=== PATIENT | male | born 1955 | race Caucasian/White ===

== ENCOUNTER 2016-11-06 11:17 | Inpatient (IN) | payer MEDICAID, OTHER ==
[2016-11-06] MEDS ORDERED: Sodium Chloride 0.9% 1,000 ML IV ONE (11:39)
[2016-11-06 12:04] LABS: BASO # 0.1 K/uL (0.0-0.2); BASO % 1.5 % (0.0-2.0); EOS % 0.5 % (0.0-4.0); HEMATOCRIT 40.1 % (35.0-51.0); LYMPH # 0.6 K/uL (1.0-4.3); LYMPH % 8.2 % (20.0-40.0); MEAN CELL VOLUME 84.3 fL (80.0-94.0); MEAN CORPUSCULAR HEMOGLOBIN 27.5 pg (27.0-31.0); MEAN CORPUSCULAR HGB CONC 32.6 g/dL (33.0-37.0); MEAN PLATELET VOLUME 8.5 fL (7.2-11.7); MONO # 0.5 K/uL (0.0-0.8); MONO % 7.2 % (0.0-10.0); PLATELET COUNT 248 K/uL (130-400); RED CELL DISTRIBUTION WIDTH 15.6 % (11.5-14.5); WHITE BLOOD COUNT 7.3 K/uL (4.8-10.8)
[2016-11-06 12:10] LABS: CHLORIDE 98 mmol/L (98-107); POTASSIUM 3.7 mmol/L (3.6-5.2); SODIUM 142 mmol/L (132-148)
[2016-11-06 12:12] LABS: ALKALINE PHOSPHATASE 109 U/L (38-126); AST/SGOT 168 U/L (17-59); BILIRUBIN,TOTAL 0.8 mg/dL (0.2-1.3); CARBON DIOXIDE 25 mmol/L (22-30); GFR AFRICAN-AMERICAN > 60; TOTAL PROTEIN 8.5 g/dL (6.3-8.3)
[2016-11-06 12:13] LABS: ALT/SGPT 118 U/L (21-72); BLOOD UREA NITROGEN 8 mg/dL (9-20); GLUCOSE,RANDOM 169 mg/dL (75-110)
[2016-11-06 12:14] LABS: ALCOHOL SERUM 22 mg/dl (0-10)
[2016-11-06 12:23] LABS: EOSINOPHIL 1 % (0-4); NEUTROPHIL 82 % (50-75); TOTAL CELLS COUNTED 100
[2016-11-06 13:42] LABS: RBC URINE 1 /hpf (0-3); URINE BILIRUBIN NEGATIVE (NEGATIVE); URINE BLOOD 1+ (NEGATIVE); URINE COLOR Yellow (YELLOW); URINE GLUCOSE (UA) 2+ mg/dL (Normal); URINE KETONE NEGATIVE (NEGATIVE); URINE LEUKOCYTE ESTERASE NEG Leu/uL (Negative); URINE PROTEIN NEGATIVE (NEGATIVE); URINE UROBILINOGEN NORMAL mg/dL (0.2-1.0); WBC URINE 1 /hpf (0-5)
--- NOTE | 2016-11-06 14:26 | C.PDOC ---
History Of Present Illness A 61 year old male, who denies any significant past medical history, presents to the emergency department with hand tremors, which began earlier this morning. The patient admits he is a heavy drinker about 6 25ox cans of beer a day. The patient also complains of mild nausea and denies any fever, cough, shortness of breath, chills, vomiting, or any other complaints at this time. Time Seen by Provider: 11/06/16 11:33 Chief Complaint (Nursing): High Blood Pressure History Per: Patient History/Exam Limitations: no limitations Onset/Duration Of Symptoms: Hrs (x earlier this morning ) Associated Symptoms: denies: Chest Pain Past Medical History Vital Signs: Last Vital Signs Temp 99.6 F 11/06/16 17:00 Pulse 101 H 11/06/16 18:00 Resp 21 11/06/16 18:00 BP 191/96 H 11/06/16 18:00 Pulse Ox 100 11/06/16 18:00 Family History: States: No Known Family Hx - Social History Hx Alcohol Use: Yes Hx Substance Use: No Review Of Systems Except As Marked, All Systems Reviewed And Found Negative. Constitutional: Negative for: Fever, Chills Respiratory: Negative for: Cough Gastrointestinal: Positive for: Nausea. Negative for: Vomiting Neurological: Positive for: Other (hand tremors) Physical Exam - Physical Exam Appears: Well, No Acute Distress Skin: Normal Color, Warm, Dry Head: Atraumatic, Normacephalic Eye(s): bilateral: Normal Inspection, PERRL, EOMI Nose: Normal Tongue: Other (Tongue fasciculation) Gastrointestinal/Abdominal: Normal Exam Extremity: Other (tremors ) ED Course And Treatment - Laboratory Results Result Diagrams: 11/06/16 11:56 11/06/16 11:56 O2 Sat by Pulse Oximetry: 99 Critical Care Time - Critical Care Note Total Time (in mins): 40 Documented critical care: time excludes all time spent performing seperately billable procedures. Medical Decision Making Medical Decision Making: Progress Notes: After second dose of Ativan patient continuos to be tremulous. I will order Ativan drip. I will contact ICU for evaluation. Disposition - Disposition Disposition: HOSPITALIZED Disposition Time: 14:00 Condition: GUARDED - Clinical Impression Clinical Impression: Alcohol withdrawal, Hypertension, Tremor due to drug withdrawal - Scribe Statement The provider has reviewed the documentation as recorded by the Scriblisa Chery All medical record entries made by the Francoiblisa were at my direction and personally dictated by me. I have reviewed the chart and agree that the record accurately reflects my personal performance of the history, physical exam, medical decision making, and the department course for this patient. I have also personally directed, reviewed, and agree with the discharge instructions and disposition.
[2016-11-06] MEDS ORDERED: DEXTROSE 5% IV SCH (14:30)
[2016-11-06] MEDS ORDERED: LORAZEPAM IV SCH (14:30)
[2016-11-06] MEDS ORDERED: WATER IV SCH (14:30)
[2016-11-06 15:30] LABS: INR 1.2
[2016-11-06] MEDS: Multiple Vitamins Tab PO SCH (18:13)
--- NOTE | 2016-11-06 19:42 | CP.PCM.HP ---
<Mackenzie Rodrigues TravisPrateek - Last Filed: 11/06/16 19:36> History of Present Illness - History of Present Illness History of Present Illness: CC: tremors HPI: 61 year old male with no past medical history, presents to the ED with complaints of tremors that began this morning. He has a history of drinking 5-8 24oz. beers daily for many years. His last drink was yesterday afternoon. Patient reports feeling hand tremors, nausea, and sometimes short of breath. As per his , patient has difficulty walking more than 2-4 steps without becoming short of breath. Patient reports having fallen in the past, but is not sure if he has fallen recently. Patient is oriented and has no hallucinations. Patient denies having chest pain, abdominal pain, leg pain, vomiting, fevers, and dizziness. PMD: denies PMHx: denies SurgHx: denies FamHx: denies SocHx: 1/2ppd for "years", 5-8 24oz beers for "years; denies current drug use; denies IV drug use. Works at [employer] Allergies: NKDA Medications: denies Present on Admission - Present on Admission Any Indicators Present on Admission: No Review of Systems - Constitutional Constitutional: absent: Fever, Headache - EENT Ears: absent: Dizziness - Cardiovascular Cardiovascular: Dyspnea, Dyspnea on Exertion. absent: Chest Pain - Respiratory Respiratory: Dyspnea, Dyspnea on Exertion. absent: Cough - Gastrointestinal Gastrointestinal: Nausea. absent: Abdominal Pain, Vomiting - Genitourinary Genitourinary: absent: Dysuria - Neurological Neurological: absent: Dizziness, Headaches Past Patient History - Past Medical History & Family History Past Medical History?: No - Past Social History Smoking Status: 1 pack/2 d - MUSCULOSKELETAL/RHEUMATOLOGICAL Hx Falls: No - PSYCHIATRIC Hx Substance Use: No - SURGICAL HISTORY Hx Surgeries: No - ANESTHESIA Hx Anesthesia: No Hx Anesthesia Reactions: No Meds Allergies/Adverse Reactions: Allergies Allergy/AdvReac Type Severity Reaction Status Date / Time No Known Allergies Allergy Verified 11/06/16 11:26 Physical Exam - Constitutional Appears: Unkempt - Head Exam Head Exam: ATRAUMATIC, NORMAL INSPECTION - Eye Exam Eye Exam: EOMI, Normal appearance - ENT Exam ENT Exam: Mucous Membranes Moist - Respiratory Exam Respiratory Exam: Decreased Breath Sounds, Clear to Auscultation Bilateral. absent: Rales, Rhonchi, Wheezes - Cardiovascular Exam Cardiovascular Exam: Tachycardia, +S1, +S2 - GI/Abdominal Exam GI & Abdominal Exam: Normal Bowel Sounds, Soft. absent: Tenderness - Extremities Exam Extremities exam: Positive for: pedal edema - Neurological Exam Neurological exam: Alert, Oriented x3 Additional comments: hand tremors b/l - Skin Skin Exam: Dry, Normal Color, Warm Results - Vital Signs Recent Vital Signs: Last Vital Signs Temp 99.6 F 11/06/16 17:00 Pulse 101 H 11/06/16 18:00 Resp 21 11/06/16 18:00 BP 191/96 H 11/06/16 18:00 Pulse Ox 99 11/06/16 18:41 - Labs Result Diagrams: 11/06/16 11:56 11/06/16 11:56 Labs: Laboratory Results - last 24 hr 11/06/16 15:19 PT 13.3 H INR 1.2 APTT 30 Assessment & Plan (1) Alcohol withdrawal Assessment and Plan: - Thiamine 100mg IV daily - Multivitamin PO daily - Folic Acid 1mg PO daily - Ativan 2mg IV Q6 poncho - Ativan 4mg IV Q2 PRN (hold if lethargic) - Keep NPO - Monitor vital signs - Monitor for signs of DTs Status: Acute (2) Dyspnea on exertion Assessment and Plan: Patient reports occasionally feeling short of breath, exacerbated with exertion - CXR: f/u - ECHO: f/u - Nasal cannula O2 prn Status: Acute (3) Prophylactic measure Assessment and Plan: DVT: Heparin 5,000 units SC, SCDs GI: Pepcid 20mg PO daily NPO Status: Acute <TamelaPeter H - Last Filed: 11/07/16 09:18> Results - Vital Signs Recent Vital Signs: Last Vital Signs Temp 98.8 F 11/07/16 08:00 Pulse 107 H 11/07/16 08:20 Resp 12 11/07/16 08:20 BP 144/88 11/07/16 08:00 Pulse Ox 100 11/07/16 08:00 - Labs Result Diagrams: 11/07/16 06:44 11/07/16 06:44 Labs: Laboratory Results - last 24 hr 11/06/16 11/06/16 11/07/16 15:19 22:47 06:44 WBC 8.2 RBC 4.34 L Hgb 12.0 Hct 36.6 MCV 84.2 MCH 27.6 MCHC 32.8 L RDW 15.4 H Plt Count 205 MPV 9.2 Neut % (Auto) 71.2 Lymph % (Auto) 14.4 L [place] % (Auto) 9.1 Eos % (Auto) 4.0 Baso % (Auto) 1.3 Neut # 5.8 Lymph # 1.2 [place] # 0.7 Eos # 0.3 Baso # 0.1 PT 13.3 H INR 1.2 APTT 30 Sodium 134 Potassium 3.7 Chloride 96 L Carbon Dioxide 28 Anion Gap 14 BUN 8 L Creatinine 0.6 L Est GFR ( Amer) > 60 Est GFR (Non-Af Amer) > 60 Random Glucose 89 Calcium 8.0 L Phosphorus 3.2 Magnesium 1.7 Total Bilirubin AST ALT Alkaline Phosphatase Total Protein Albumin Globulin Albumin/Globulin Ratio 11/07/16 06:44 WBC RBC Hgb Hct MCV MCH MCHC RDW Plt Count MPV Neut % (Auto) Lymph % (Auto) [place] % (Auto) Eos % (Auto) Baso % (Auto) Neut # Lymph # [place] # Eos # Baso # PT INR APTT Sodium 133 Potassium 4.0 Chloride 96 L Carbon Dioxide 25 Anion Gap 16 BUN 9 Creatinine 0.5 L Est GFR ( Amer) > 60 Est GFR (Non-Af Amer) > 60 Random Glucose 93 Calcium 8.6 Phosphorus 3.0 Magnesium 2.0 Total Bilirubin 1.1 AST 111 H D ALT 88 H D Alkaline Phosphatase 85 Total Protein 7.1 Albumin 3.9 Globulin 3.3 Albumin/Globulin Ratio 1.2 Attending/Attestation - Attestation I have personally seen and examined this patient.: Yes I have fully participated in the care of the patient.: Yes I have reviewed all pertinent clinical information: Yes Notes (Text): Medical Attending: Patient was seen and examined by me in ER bed 8B. Agree with the above note by the resident. Patient was pending being moved to the ICU for further monitoring and treatment for acute withdrawl and DTs from a history of very heavy alcohol use. When I saw the patient he was awake, however appeared very tremulous and may have still been intoxicated at that time. He recieved large amounts of IV ativan already admisted in the ER and these did not appear to help substantially with the tremor. He currently has orders for IV ativan to be given ever 2hrs. He will need to have vital signs monitored carefully as well as electrolyte replacements thank you Se Rapp
--- NOTE | 2016-11-06 19:59 | CP.PCM.CON ---
<Mackenzie Rodrigues - Last Filed: 11/06/16 19:57> History of Present Illness - History of Present Illness History of Present Illness: CC: tremors HPI: 61 year old male with no past medical history, presents to the ED with complaints of tremors that began this morning. Patient was admitted to ICU for monitoring for possible DTs. He has a history of drinking 5-8 24oz. beers daily for many years. His last drink was yesterday afternoon. Patient reports feeling hand tremors, nausea, and sometimes short of breath. As per his , patient has difficulty walking more than 2-4 steps without becoming short of breath. Patient reports having fallen in the past, but is not sure if he has fallen recently. Patient is oriented and has no hallucinations. Patient denies having chest pain, abdominal pain, leg pain, vomiting, fevers, and dizziness. PMD: denies PMHx: denies SurgHx: denies FamHx: denies SocHx: 1/2ppd for "years", 5-8 24oz beers for "years; denies current drug use; denies IV drug use. Works at [employer] Allergies: NKDA Medications: denies Review of Systems - Constitutional Constitutional: absent: Fever, Headache - EENT Ears: absent: Dizziness - Cardiovascular Cardiovascular: Dyspnea, Dyspnea on Exertion. absent: Chest Pain - Respiratory Respiratory: Dyspnea, Dyspnea on Exertion. absent: Cough - Gastrointestinal Gastrointestinal: Nausea. absent: Abdominal Pain, Vomiting - Genitourinary Genitourinary: absent: Dysuria - Neurological Neurological: Tremor. absent: Dizziness, Headaches Past Patient History - Past Medical History & Family History Past Medical History?: No - Past Social History Smoking Status: 1 pack/2 d - MUSCULOSKELETAL/RHEUMATOLOGICAL Hx Falls: No - PSYCHIATRIC Hx Substance Use: No - SURGICAL HISTORY Hx Surgeries: No - ANESTHESIA Hx Anesthesia: No Hx Anesthesia Reactions: No Meds Allergies/Adverse Reactions: Allergies Allergy/AdvReac Type Severity Reaction Status Date / Time No Known Allergies Allergy Verified 11/06/16 11:26 - Medications Medications: Current Medications Famotidine (Pepcid) 20 mg PO DAILY [facility] Last Admin: 11/06/16 15:21 Dose: 20 mg Folic Acid (Folic Acid) 1 mg PO DAILY [facility] Last Admin: 11/06/16 15:21 Dose: 1 mg Heparin Sodium (Porcine) (Heparin) 5,000 units SC Q8 [facility] Lorazepam (Ativan) 2 mg IVP Q6H [facility] Last Admin: 11/06/16 15:00 Dose: 2 mg Lorazepam (Ativan) 4 mg IVP Q2 PRN PRN Reason: Agitation Multivitamins (Hexavitamin) 1 tab PO DAILY [facility] Last Admin: 11/06/16 18:13 Dose: 1 tab Thiamine HCl (Vitamin B1 Inj) 100 mg IV DAILY [facility] Physical Exam - Constitutional Appears: Unkempt - Head Exam Head Exam: ATRAUMATIC, NORMAL INSPECTION - Eye Exam Eye Exam: EOMI, Normal appearance - ENT Exam ENT Exam: Mucous Membranes Moist - Respiratory Exam Respiratory Exam: Decreased Breath Sounds, Clear to Auscultation Bilateral. absent: Rales, Rhonchi, Wheezes - Cardiovascular Exam Cardiovascular Exam: Tachycardia, +S1, +S2 - GI/Abdominal Exam GI & Abdominal Exam: Normal Bowel Sounds, Soft. absent: Distended, Tenderness - Extremities Exam Extremities exam: Positive for: pedal edema - Neurological Exam Neurological exam: Alert, Oriented x3 - Skin Skin Exam: Dry, Intact, Normal Color, Warm Results - Vital Signs Recent Vital Signs: Last Vital Signs Temp 99.6 F 11/06/16 17:00 Pulse 101 H 11/06/16 18:00 Resp 21 11/06/16 18:00 BP 191/96 H 11/06/16 18:00 Pulse Ox 99 11/06/16 18:41 - Labs Result Diagrams: 11/06/16 11:56 11/06/16 11:56 Labs: Laboratory Results - last 24 hr 11/06/16 15:19 PT 13.3 H INR 1.2 APTT 30 Assessment & Plan (1) Alcohol withdrawal Assessment and Plan: 61 year old male with no past medical history, presents to the ED with complaints of tremors that began this morning. Patient was admitted to ICU for monitoring for possible DTs. He has a history of drinking 5-8 24oz. beers daily for many years. His last drink was yesterday afternoon. Patient reports feeling hand tremors, nausea, and sometimes short of breath. As per his , patient has difficulty walking more than 2-4 steps without becoming short of breath. Patient reports having fallen in the past, but is not sure if he has fallen recently. Patient is oriented and has no hallucinations. Patient denies having chest pain, abdominal pain, leg pain, vomiting, fevers, and dizziness. Neuro: alert, oriented x3 Pulm: Hx of dyspnea on exertion - O2 via nasal cannula prn - CXR: - Echo: f/u CV: Hypertensive, likely secondary to tremors and alcohol withdrawal - Monitor vitals Endo: no acute issues GI: NPO Heme: no acute issues Renal: no acute issues Withdrawal: - Thiamine 100mg IV daily - Multivitamin PO daily - Folic Acid 1mg PO daily - Ativan 2mg IV Q6 [facility] - Ativan 4mg IV Q2 PRN (hold if lethargic) - Keep NPO - Monitor vital signs - Monitor for signs of DTs Prophylaxis: - DVT: Heparin 5,000 units SC, SCDs - GI: Pepcid 20mg PO daily Status: Acute <Diego Bailey P - Last Filed: 11/07/16 08:04> Meds - Medications Medications: Current Medications Famotidine (Pepcid) 20 mg PO DAILY [facility] Last Admin: 11/06/16 15:21 Dose: 20 mg Folic Acid (Folic Acid) 1 mg PO DAILY [facility] Last Admin: 11/06/16 15:21 Dose: 1 mg Heparin Sodium (Porcine) (Heparin) 5,000 units SC Q8 [facility] Last Admin: 11/07/16 05:42 Dose: 5,000 units Dexmedetomidine HCl 200 mcg/ (Sodium Chloride) 50 mls @ 3.89 mls/hr IV TITR PRN ; Protocol; 0.2 MCG/KG/HR PRN Reason: Agitation Lorazepam (Ativan) 2 mg IVP Q6H [facility] Last Admin: 11/07/16 03:58 Dose: Not Given Lorazepam (Ativan) 2 mg IVP Q2 PRN PRN Reason: Agitation Last Admin: 11/07/16 06:23 Dose: 2 mg Multivitamins (Hexavitamin) 1 tab PO DAILY [facility] Last Admin: 11/06/16 18:13 Dose: 1 tab Thiamine HCl (Vitamin B1 Inj) 100 mg IV DAILY [facility] Results - Vital Signs Recent Vital Signs: Last Vital Signs Temp 99.8 F H 11/07/16 04:00 Pulse 110 H 11/07/16 06:00 Resp 16 11/07/16 06:00 BP 147/90 11/07/16 05:50 Pulse Ox 100 11/07/16 06:00 - Labs Result Diagrams: 11/07/16 06:44 11/07/16 06:44 Labs: Laboratory Results - last 24 hr 11/06/16 11/06/16 11/07/16 15:19 22:47 06:44 WBC 8.2 RBC 4.34 L Hgb 12.0 Hct 36.6 MCV 84.2 MCH 27.6 MCHC 32.8 L RDW 15.4 H Plt Count 205 MPV 9.2 Neut % (Auto) 71.2 Lymph % (Auto) 14.4 L [place] % (Auto) 9.1 Eos % (Auto) 4.0 Baso % (Auto) 1.3 Neut # 5.8 Lymph # 1.2 [place] # 0.7 Eos # 0.3 Baso # 0.1 PT 13.3 H INR 1.2 APTT 30 Sodium 134 Potassium 3.7 Chloride 96 L Carbon Dioxide 28 Anion Gap 14 BUN 8 L Creatinine 0.6 L Est GFR ( Amer) > 60 Est GFR (Non-Af Amer) > 60 Random Glucose 89 Calcium 8.0 L Phosphorus 3.2 Magnesium 1.7 Total Bilirubin AST ALT Alkaline Phosphatase Total Protein Albumin Globulin Albumin/Globulin Ratio 11/07/16 06:44 WBC RBC Hgb Hct MCV MCH MCHC RDW Plt Count MPV Neut % (Auto) Lymph % (Auto) [place] % (Auto) Eos % (Auto) Baso % (Auto) Neut # Lymph # [place] # Eos # Baso # PT INR APTT Sodium 133 Potassium 4.0 Chloride 96 L Carbon Dioxide 25 Anion Gap 16 BUN 9 Creatinine 0.5 L Est GFR ( Amer) > 60 Est GFR (Non-Af Amer) > 60 Random Glucose 93 Calcium 8.6 Phosphorus 3.0 Magnesium 2.0 Total Bilirubin 1.1 AST 111 H D ALT 88 H D Alkaline Phosphatase 85 Total Protein 7.1 Albumin 3.9 Globulin 3.3 Albumin/Globulin Ratio 1.2 Attending/Attestation - Attestation I have personally seen and examined this patient.: Yes I have fully participated in the care of the patient.: Yes I have reviewed all pertinent clinical information: Yes Notes (Text): 61 M with h/o alcoholism, decided to stop, in withdrawal needed 8mg of iv ativan in 2 hr without significant control of the symptoms, hence being observed in icu for need of high doses of iv bzd. Plan [facility] ativan with hold orders, prn high 4mg iv ativan q2hrs, thiamine iv, FA, MVT , ivf, CXR, echo has h/o c/o exertional sob r/o alcoholic cardiomyopathy. See orders for detail.
[2016-11-06 23:00] LABS: CHLORIDE 96 mmol/L (98-107); POTASSIUM 3.7 mmol/L (3.6-5.2); SODIUM 134 mmol/L (132-148)
[2016-11-06 23:03] LABS: BLOOD UREA NITROGEN 8 mg/dL (9-20); CARBON DIOXIDE 28 mmol/L (22-30); GFR AFRICAN-AMERICAN > 60; GLUCOSE,RANDOM 89 mg/dL (75-110)
[2016-11-06 23:04] LABS: MAGNESIUM 1.7 mg/dL (1.6-2.3); PHOSPHOROUS 3.2 mg/dL (2.5-4.5)
[2016-11-07] MEDS ORDERED: Nitroglycerin 2% Ointment Foilpak UD TOP STA (03:08)
[2016-11-07 06:50] LABS: BASO # 0.1 K/uL (0.0-0.2); BASO % 1.3 % (0.0-2.0); EOS # 0.3 K/uL (0.0-0.7); HEMATOCRIT 36.6 % (35.0-51.0); LYMPH # 1.2 K/uL (1.0-4.3); LYMPH % 14.4 % (20.0-40.0); MEAN CELL VOLUME 84.2 fL (80.0-94.0); MEAN CORPUSCULAR HEMOGLOBIN 27.6 pg (27.0-31.0); MEAN CORPUSCULAR HGB CONC 32.8 g/dL (33.0-37.0); MEAN PLATELET VOLUME 9.2 fL (7.2-11.7); MONO # 0.7 K/uL (0.0-0.8); MONO % 9.1 % (0.0-10.0); RED CELL DISTRIBUTION WIDTH 15.4 % (11.5-14.5); WHITE BLOOD COUNT 8.2 K/uL (4.8-10.8)
[2016-11-07 07:17] LABS: ALB/GLOB RATIO 1.2 (1.0-2.1); ALKALINE PHOSPHATASE 85 U/L (38-126); ALT/SGPT 88 U/L (21-72); AST/SGOT 111 U/L (17-59); BILIRUBIN,TOTAL 1.1 mg/dL (0.2-1.3); BLOOD UREA NITROGEN 9 mg/dL (9-20); CALCIUM 8.6 mg/dl (8.6-10.4); CARBON DIOXIDE 25 mmol/L (22-30); CHLORIDE 96 mmol/L (98-107); GFR AFRICAN-AMERICAN > 60; GLUCOSE,RANDOM 93 mg/dL (75-110); SODIUM 133 mmol/L (132-148); TOTAL PROTEIN 7.1 g/dL (6.3-8.3)
[2016-11-07] MEDS ORDERED: Dexmedetomidine Hydrochloride 200 MCG in Sodium Chloride 0.9% 48 ML IV PRN (07:19)
[2016-11-07] MEDS: Dextrose 5%/0.9% NS 1,000 ML IV SCH ×2 (09:30→20:00)
--- NOTE | 2016-11-07 09:30 | CP.PCM.PN ---
Subjective - Date & Time of Evaluation Date of Evaluation: 11/07/16 Time of Evaluation: 09:15 - Subjective Subjective: Patient was seen and examined by me. Overnight was placed on Precedex ggt after tremors became worse. Still getting ativan IV as well. When I saw him he was awake and alert. He follows some very simple commands in [place]. He does appear to still have some very fine tremors on exam. He denied chest pain, denied shortness of breath, + he indicated he had anxiety and tremors Objective - Vital Signs/Intake and Output Vital Signs (last 24 hours): Temp Pulse Resp BP Pulse Ox 98.8 F 107 H 12 144/88 100 11/07/16 08:00 11/07/16 08:20 11/07/16 08:20 11/07/16 08:00 11/07/16 08:00 Intake and Output: 11/07/16 11/07/16 06:59 18:59 Intake Total 30 Output Total 500 Balance -500 30 - Medications Medications: Current Medications Famotidine (Pepcid) 20 mg PO DAILY [facility] Last Admin: 11/06/16 15:21 Dose: 20 mg Folic Acid (Folic Acid) 1 mg PO DAILY [facility] Last Admin: 11/06/16 15:21 Dose: 1 mg Heparin Sodium (Porcine) (Heparin) 5,000 units SC Q8 [facility] Last Admin: 11/07/16 05:42 Dose: 5,000 units Dexmedetomidine HCl 200 mcg/ (Sodium Chloride) 50 mls @ 3.89 mls/hr IV TITR PRN ; Protocol; 0.2 MCG/KG/HR PRN Reason: Agitation Dextrose/Sodium Chloride (Dextrose 5%/0.9% Ns 1000 Ml) 1,000 mls @ 100 mls/hr IV .Q10H [facility] Magnesium Sulfate/Dextrose (Magnesium Sulfate 1 Gm/100 Ml D5w) 1 gm in 100 mls @ 300 mls/hr IVPB Q30M [facility] Stop: 11/07/16 10:19 Lorazepam (Ativan) 2 mg IVP Q6H [facility] Last Admin: 11/07/16 03:58 Dose: Not Given Lorazepam (Ativan) 2 mg IVP Q2 PRN PRN Reason: Agitation Last Admin: 11/07/16 06:23 Dose: 2 mg Multivitamins (Hexavitamin) 1 tab PO DAILY [facility] Last Admin: 11/06/16 18:13 Dose: 1 tab Thiamine HCl (Vitamin B1 Inj) 100 mg IV DAILY [facility] - Labs Labs: 11/07/16 06:44 11/07/16 06:44 PT 13.3 SECONDS (9.7-12.2) H 11/06/16 15:19 INR 1.2 11/06/16 15:19 APTT 30 SECONDS (21-34) 11/06/16 15:19 - Constitutional Appears: Unkempt, Confused, Cachectic, Chronically Ill - Head Exam Head Exam: NORMAL INSPECTION - Eye Exam Eye Exam: EOMI, Normal appearance - ENT Exam ENT Exam: Mucous Membranes Moist - Respiratory Exam Respiratory Exam: Decreased Breath Sounds - Cardiovascular Exam Cardiovascular Exam: REGULAR RHYTHM - GI/Abdominal Exam GI & Abdominal Exam: Soft, Normal Bowel Sounds. absent: Firm, Guarding, Rigid, Tenderness - Neurological Exam Neurological Exam: Alert, Awake Neuro motor strength exam: Left Upper Extremity: 5, Right Upper Extremity: 5 - Skin Skin Exam: Pallor, Pallor, Warm Assessment and Plan - Assessment and Plan (Free Text) Assessment: Assessment & Plan (1) Alcohol withdrawal Assessment and Plan: 11/06: Patient currently on Precedex ggt. Also reciving ativan IV. - Thiamine 100mg IV daily - Multivitamin PO daily - Folic Acid 1mg PO daily - Ativan 2mg IV Q6 poncho - Ativan 4mg IV Q2 PRN (hold if lethargic) - Keep NPO - Monitor vital signs - Monitor for signs of DTs (2) Dyspnea on exertion Assessment and Plan: Patient reports occasionally feeling short of breath, exacerbated with exertion 11/06: CXRAY pending, did not appear to be fluid overload or pulmonary congestion , pending 2D echo at this time - Nasal cannula O2 prn (3) Prophylactic measure Assessment and Plan: DVT: Heparin 5,000 units SC, SCDs GI: Pepcid 20mg PO daily NPO
--- NOTE | 2016-11-07 10:24 | RAD ---
HISTORY: dyspnea COMPARISON: No prior. FINDINGS: LUNGS: No active pulmonary disease. PLEURA: No significant pleural effusion identified, no pneumothorax apparent. CARDIOVASCULAR: Normal. OSSEOUS STRUCTURES: No significant abnormalities. VISUALIZED UPPER ABDOMEN: Normal. OTHER FINDINGS: None. IMPRESSION: No acute cardiopulmonary disease appreciated at this time.
[2016-11-07] MEDS: Magnesium Sulfate 1 gm in D5W 1 GM/100 ML BAG IVPB SCH ×2 (11:00→11:26)
[2016-11-07] MEDS: Thiamine 100 mg/ml Inj IV SCH (11:22)
[2016-11-07] MEDS: Multiple Vitamins Tab PO SCH (11:24)
--- NOTE | 2016-11-07 12:14 | CARD ---
APPROVED REPORT EXAM: Two-dimensional and M-mode echocardiogram with Doppler and color Doppler. Other Information Quality : GoodRhythm : NSR INDICATION Dyspnea ALCOHOL WITHDRAWAL RISK FACTORS Hypertension 2D DIMENSIONS IVSd1.1 (0.7-1.1cm)PWd1.0 (0.7-1.1cm) M-Mode DIMENSIONS RVDd1.46 (2.1-3.2cm)Left Atrium (MM)3.58 (2.5-4.0cm) IVSd0.94 (0.7-1.1cm)Aortic Root2.93 (2.2-3.7cm) LVDd5.24 (4.0-5.6cm)Aortic Cusp Exc.2.18 (1.5-2.0cm) PWd1.17 (0.7-1.1cm)FS (%) 32 % LVDs3.58 (2.0-3.8cm)LVEF (%)59 (>50%) Mitral Valve MV E Mlxerbxp82.8cm/sMV A Tqpsjjcm285.7cm/sE/A ratio0.6 TDI E/Lateral E'0.0E/Medial E'0.0 Tricuspid Valve TR Peak [id number]/sTR Peak [id number] LEFT VENTRICLE The left ventricle is normal size. There is borderline concentric left ventricular hypertrophy. Left ventricle systolic function is normal. The Ejection Fraction is 60-65%. There is normal LV segmental wall motion. Transmitral Doppler flow pattern is Grade I-abnormal relaxation pattern. There is no ventricular septal defect visualized. RIGHT VENTRICLE The right ventricle is normal size. The right ventricular systolic function is normal. ATRIA The left atrium size is normal. The right atrium size is normal. AORTIC VALVE The aortic valve is mildly to moderately sclerotic. The aortic valve is tri-cuspid. No aortic regurgitation is present. There is no aortic valvular stenosis. MITRAL VALVE The mitral valve is normal in structure. There is no evidence of mitral valve prolapse. There is no mitral valve regurgitation noted. TRICUSPID VALVE The tricuspid valve is normal in structure. There is trace tricuspid regurgitation. There is no pulmonary hypertension. PULMONIC VALVE The pulmonic valve is not well visualized. There is no pulmonic valvular regurgitation. GREAT VESSELS The aortic root is normal in size. The IVC is normal in size and collapses >50% with inspiration. PERICARDIAL EFFUSION There is no pericardial effusion. <Conclusion> There is borderline concentric left ventricular hypertrophy. Left ventricle systolic function is normal. The Ejection Fraction is 60-65%. Transmitral Doppler flow pattern is Grade I-abnormal relaxation pattern. The aortic valve is mildly to moderately sclerotic. The aortic valve is tri-cuspid.
[2016-11-07] MEDS ORDERED: Succinylcholine Chloride 20 mg/ml Syr (5 ml) IV STA (16:50)
[2016-11-07] MEDS ORDERED: Propofol 10 mg/ml Inj (20 ML) IV ONE (17:00)
--- NOTE | 2016-11-07 17:32 | CP.CCUPN ---
<Mackenzie Rodrigues - Last Filed: 11/07/16 17:30> CCU Subjective - Physician Review Subjective (Free Text): Patient was seen and examined at bedside. Patient is disoriented, having visual hallucinations, tremors, short of breath and is diaphoretic. Patient denies chest pain, abdominal pain, nausea, vomiting, dizziness, fevers. 11/07/16 17:30 CCU Objective - Vital Signs / Intake & Output Vital Signs (Last 4 hours): Vital Signs Temp Pulse Resp BP Pulse Ox 11/07/16 16:10 116 H 22 97 11/07/16 16:00 98.5 F 111 H 20 158/90 H 97 11/07/16 15:52 123 H 24 177/109 H 99 11/07/16 15:50 137 H 22 97 11/07/16 15:40 110 H 17 97 11/07/16 15:30 114 H 27 H 98 11/07/16 15:20 114 H 19 98 11/07/16 15:10 113 H 21 98 11/07/16 15:00 105 H 15 95 11/07/16 14:50 109 H 20 167/99 H 96 11/07/16 14:40 122 H 20 11/07/16 14:30 108 H 24 11/07/16 14:20 108 H 18 11/07/16 14:10 108 H 18 11/07/16 14:00 107 H 18 11/07/16 13:51 109 H 20 161/102 H 11/07/16 13:50 108 H 24 11/07/16 13:40 108 H 16 Intake and Output (Last 8hrs): Intake & Output 11/07/16 11/07/16 11/07/16 06:59 14:59 22:59 Intake Total 455 Output Total 200 Balance -200 455 Intake: Intake, IV Amount 35 Left Forearm 20 Left Hand 15 Oral 420 Output: Urine 200 Urine, Voided 200 - Physical Exam Head: Positive for: Atraumatic, Normocephalic Extroacular Muscles: Positive for: EOMI Mouth: Positive for: Moist Mucous Membranes Respiratory/Chest: Positive for: Tachypneic, Other (hypoxic). Negative for: Good Air Exchange, Rales, Rhonchi Cardiovascular: Positive for: Normal S1, S2, Tachycardic Abdomen: Positive for: Normal Bowel Sounds. Negative for: Tenderness, Distention Upper Extremity: Positive for: Normal Inspection. Negative for: Edema Lower Extremity: Positive for: Normal Inspection, NORMAL PULSES. Negative for: Edema Skin: Positive for: Warm, Normal Color, Diaphoretic Psychiatric: Positive for: Alert, Agitated, Hallucinations. Negative for: Oriented x 3, Normal Affect, Normal Mood - Medications Active Medications: Active Medications Generic Name Dose Route Start Last Admin Trade Name Freq PRN Reason Stop Dose Admin Famotidine 20 mg 11/06/16 15:00 11/07/16 11:24 Pepcid PO 20 mg DAILY PONCHO Administration Folic Acid 1 mg 11/06/16 15:00 11/07/16 11:25 Folic Acid PO 1 mg DAILY PONCHO Administration Heparin Sodium (Porcine) 5,000 units 11/06/16 22:00 11/07/16 15:45 Heparin SC 5,000 units Q8 PONCHO Administration Dexmedetomidine HCl 200 mcg/ 50 mls @ 3.89 mls/hr 11/07/16 07:19 11/07/16 08: 15 Sodium Chloride IV 0.2 mcg/kg/hr TITR PRN 3.89 mls/hr Agitation Administration Protocol 0.2 MCG/KG/HR Dextrose/Sodium Chloride 1,000 mls @ 100 mls/hr 11/07/16 09:30 11/07/16 09:30 Dextrose 5%/0.9% Ns 1000 Ml IV 100 mls/hr .Q10H PONCHO Administration Lorazepam 2 mg 11/06/16 15:00 11/07/16 15:40 Ativan IVP Not Given Q6H PONCHO Lorazepam 2 mg 11/07/16 00:16 11/07/16 15:41 Ativan IVP 2 mg Q2 PRN Administration Agitation Multivitamins 1 tab 11/06/16 15:00 11/07/16 11:24 Hexavitamin PO 1 tab DAILY PONCHO Administration Propofol 100 mg 11/07/16 17:15 Diprivan IV TITR PONCHO Thiamine HCl 100 mg 11/07/16 10:00 11/07/16 11:22 Vitamin B1 Inj IV 100 mg DAILY PONCHO Administration - Patient Studies Lab Studies: Lab Studies 11/07/16 11/07/16 11/06/16 Range/Units 06:44 06:44 22:47 WBC 8.2 (4.8-10.8) K/uL RBC 4.34 L (4.40-5.90) Mil/uL Hgb 12.0 (12.0-18.0) g/dL Hct 36.6 (35.0-51.0) % MCV 84.2 (80.0-94.0) fL MCH 27.6 (27.0-31.0) pg MCHC 32.8 L (33.0-37.0) g/dL RDW 15.4 H (11.5-14.5) % Plt Count 205 (130-400) K/uL MPV 9.2 (7.2-11.7) fL Neut % (Auto) 71.2 (50.0-75.0) % Lymph % (Auto) 14.4 L (20.0-40.0) % [place] % (Auto) 9.1 (0.0-10.0) % Eos % (Auto) 4.0 (0.0-4.0) % Baso % (Auto) 1.3 (0.0-2.0) % Neut # 5.8 (1.8-7.0) K/uL Lymph # 1.2 (1.0-4.3) K/uL [place] # 0.7 (0.0-0.8) K/uL Eos # 0.3 (0.0-0.7) K/uL Baso # 0.1 (0.0-0.2) K/uL Sodium 133 134 (132-148) mmol/L Potassium 4.0 3.7 (3.6-5.2) mmol/L Chloride 96 L 96 L (98-107) mmol/L Carbon Dioxide 25 28 (22-30) mmol/L Anion Gap 16 14 (10-20) BUN 9 8 L (9-20) mg/dL Creatinine 0.5 L 0.6 L (0.8-1.5) MG/DL Est GFR ( Amer) > 60 > 60 Est GFR (Non-Af Amer) > 60 > 60 Random Glucose 93 89 (75-110) mg/dL Calcium 8.6 8.0 L (8.6-10.4) mg/dl Phosphorus 3.0 3.2 (2.5-4.5) mg/dL Magnesium 2.0 1.7 (1.6-2.3) mg/dL Total Bilirubin 1.1 (0.2-1.3) mg/dL AST 111 H D (17-59) U/L ALT 88 H D (21-72) U/L Alkaline Phosphatase 85 (38-126) U/L Total Protein 7.1 (6.3-8.3) g/dL Albumin 3.9 (3.5-5.0) g/dL Globulin 3.3 (2.2-3.9) gm/dL Albumin/Globulin Ratio 1.2 (1.0-2.1) Laboratory Results - last 24 hr 11/06/16 11/07/16 11/07/16 22:47 06:44 06:44 WBC 8.2 RBC 4.34 L Hgb 12.0 Hct 36.6 MCV 84.2 MCH 27.6 MCHC 32.8 L RDW 15.4 H Plt Count 205 MPV 9.2 Neut % (Auto) 71.2 Lymph % (Auto) 14.4 L [place] % (Auto) 9.1 Eos % (Auto) 4.0 Baso % (Auto) 1.3 Neut # 5.8 Lymph # 1.2 [place] # 0.7 Eos # 0.3 Baso # 0.1 Sodium 134 133 Potassium 3.7 4.0 Chloride 96 L 96 L Carbon Dioxide 28 25 Anion Gap 14 16 BUN 8 L 9 Creatinine 0.6 L 0.5 L Est GFR ( Amer) > 60 > 60 Est GFR (Non-Af Amer) > 60 > 60 Random Glucose 89 93 Calcium 8.0 L 8.6 Phosphorus 3.2 3.0 Magnesium 1.7 2.0 Total Bilirubin 1.1 AST 111 H D ALT 88 H D Alkaline Phosphatase 85 Total Protein 7.1 Albumin 3.9 Globulin 3.3 Albumin/Globulin Ratio 1.2 Review of Systems - Review of Systems Systems not reviewed;Unavailable: Altered Mental Status - Constitutional Constitutional: absent: Fever - EENT Ears: absent: Dizziness - Cardiovascular Cardiovascular: Dyspnea. absent: Chest Pain - Respiratory Respiratory: Cough, Dyspnea - Gastrointestinal Gastrointestinal: absent: Abdominal Pain, Constipation, Diarrhea, Nausea, Vomiting - Neurological Neurological: absent: Dizziness, Headaches - Psychiatric Psychiatric: Hallucinations, Visual Hallucinations Critical Care Progress Note - Nutrition Nutrition: Nutrition Category Date Time Status NPO Diet [DIET] Diets 11/06/16 Dinner Active Assessment/Plan (1) Alcohol withdrawal Assessment and plan: 61 year old male with no past medical history, presents to the ED with complaints of tremors that began this morning. Patient was admitted to ICU for monitoring for possible DTs. He has a history of drinking 5-8 24oz. beers daily for many years. His last drink was yesterday afternoon. Patient reports feeling hand tremors, nausea, and sometimes short of breath. As per his , patient has difficulty walking more than 2-4 steps without becoming short of breath. Patient reports having fallen in the past, but is not sure if he has fallen recently. Patient is oriented and has no hallucinations. Patient denies having chest pain, abdominal pain, leg pain, vomiting, fevers, and dizziness. Patient was intubated on 11/07/16 due to increasing agitation, dyspnea, hypoxia, and altered mental status. Continue diprivan drip. Neuro: alert, sedated - Diprivan drip Pulm: Intubated (hypoxic, ams) - Patient was intubated 11/07/16 due to increasing agitation, hallucinations, dyspnea, hypoxia, and ams. - Hx of dyspnea on exertion - CXR: no acute cardiopulmonary disease at this time - Echo: EF59%; borderline concentric LVH; grade-I abnormal relaxation; aortic valve mildly-mod sclerotic CV: Hypertensive, likely secondary to tremors and alcohol withdrawal - Monitor vitals Endo: no acute issues GI: NPO Heme: no acute issues Renal: no acute issues Withdrawal: - D5/NS @100ml/hr - Thiamine 100mg IV daily - Multivitamin PO daily - Folic Acid 1mg PO daily - Discontinued Ativan 2mg IV Q6 poncho & Ativan 4mg IV Q2 PRN - Started Diprivan Drip - Keep NPO - Monitor vital signs - Monitor for signs of DTs Prophylaxis: - DVT: Heparin 5,000 units SC, SCDs - GI: Pepcid 20mg PO daily Current Visit: Yes Status: Acute <Newton Zhou - Last Filed: 11/07/16 18:20> CCU Objective - Vital Signs / Intake & Output Vital Signs (Last 4 hours): Vital Signs Temp Pulse Resp BP Pulse Ox 11/07/16 16:10 116 H 22 97 11/07/16 16:00 98.5 F 111 H 20 158/90 H 97 11/07/16 15:52 123 H 24 177/109 H 99 11/07/16 15:50 137 H 22 97 11/07/16 15:40 110 H 17 97 11/07/16 15:30 114 H 27 H 98 11/07/16 15:20 114 H 19 98 11/07/16 15:10 113 H 21 98 11/07/16 15:00 105 H 15 95 11/07/16 14:50 109 H 20 167/99 H 96 11/07/16 14:40 122 H 20 11/07/16 14:30 108 H 24 11/07/16 14:20 108 H 18 Intake and Output (Last 8hrs): Intake & Output 11/07/16 11/07/16 11/07/16 06:59 14:59 22:59 Intake Total 455 Output Total 200 Balance -200 455 Intake: Intake, IV Amount 35 Left Forearm 20 Left Hand 15 Oral 420 Output: Urine 200 Urine, Voided 200 - Medications Active Medications: Active Medications Generic Name Dose Route Start Last Admin Trade Name Les PRN Reason Stop Dose Admin Famotidine 20 mg 11/06/16 15:00 11/07/16 11:24 Pepcid PO 20 mg DAILY PONCHO Administration Folic Acid 1 mg 11/06/16 15:00 11/07/16 11:25 Folic Acid PO 1 mg DAILY PONCHO Administration Heparin Sodium (Porcine) 5,000 units 11/06/16 22:00 11/07/16 15:45 Heparin SC 5,000 units Q8 PON[facility] Administration Dextrose/Sodium Chloride 1,000 mls @ 100 mls/hr 11/07/16 09:30 11/07/16 09:30 Dextrose 5%/0.9% Ns 1000 Ml IV 100 mls/hr .Q10H PON[facility] Administration Multivitamins 1 tab 11/06/16 15:00 11/07/16 11:24 Hexavitamin PO 1 tab DAILY PONCHO Administration Propofol 100 mg 11/07/16 17:15 Diprivan IV TITR PONCHO Thiamine HCl 100 mg 11/07/16 10:00 11/07/16 11:22 Vitamin B1 Inj IV 100 mg DAILY PONCHO Administration - Patient Studies Lab Studies: Lab Studies 11/07/16 11/07/16 11/07/16 Range/Units 18:10 06:44 06:44 WBC 8.2 (4.8-10.8) K/uL RBC 4.34 L (4.40-5.90) Mil/uL Hgb 12.0 (12.0-18.0) g/dL Hct 36.6 (35.0-51.0) % MCV 84.2 (80.0-94.0) fL MCH 27.6 (27.0-31.0) pg MCHC 32.8 L (33.0-37.0) g/dL RDW 15.4 H (11.5-14.5) % Plt Count 205 (130-400) K/uL MPV 9.2 (7.2-11.7) fL Neut % (Auto) 71.2 (50.0-75.0) % Lymph % (Auto) 14.4 L (20.0-40.0) % [place] % (Auto) 9.1 (0.0-10.0) % Eos % (Auto) 4.0 (0.0-4.0) % Baso % (Auto) 1.3 (0.0-2.0) % Neut # 5.8 (1.8-7.0) K/uL Lymph # 1.2 (1.0-4.3) K/uL [place] # 0.7 (0.0-0.8) K/uL Eos # 0.3 (0.0-0.7) K/uL Baso # 0.1 (0.0-0.2) K/uL Puncture Site Rra pCO2 40 (35-45) mm/Hg pO2 322 H (80-100) mm/Hg HCO3 26.0 (21-28) mmol/L ABG pH 7.42 (7.35-7.45) ABG Total CO2 27.1 (22-28) mmol/L ABG O2 Saturation 99.5 H (95-98) % ABG Base Excess 1.3 (-2.0-3.0) mmol/L ABG Hemoglobin 11.1 L (11.7-17.4) g/dL ABG Carboxyhemoglobin 1.1 (0.5-1.5) % POC ABG HHb (Measured) 0.5 (0.0-5.0) % ABG Methemoglobin 1.0 (0.0-3.0) % Law Test Pos A-a O2 Difference 341.0 mm/Hg Respiratory Index 1.1 Hgb O2 Saturation 97.5 (95.0-98.0) % Vent Mode A/c Mechanical Rate 14 FiO2 100.0 % Tidal Volume 500 PEEP 5 Sodium 133 (132-148) mmol/L Potassium 4.0 (3.6-5.2) mmol/L Chloride 96 L (98-107) mmol/L Carbon Dioxide 25 (22-30) mmol/L Anion Gap 16 (10-20) BUN 9 (9-20) mg/dL Creatinine 0.5 L (0.8-1.5) MG/DL Est GFR ( Amer) > 60 Est GFR (Non-Af Amer) > 60 Random Glucose 93 (75-110) mg/dL Calcium 8.6 (8.6-10.4) mg/dl Phosphorus 3.0 (2.5-4.5) mg/dL Magnesium 2.0 (1.6-2.3) mg/dL Total Bilirubin 1.1 (0.2-1.3) mg/dL AST 111 H D (17-59) U/L ALT 88 H D (21-72) U/L Alkaline Phosphatase 85 (38-126) U/L Total Protein 7.1 (6.3-8.3) g/dL Albumin 3.9 (3.5-5.0) g/dL Globulin 3.3 (2.2-3.9) gm/dL Albumin/Globulin Ratio 1.2 (1.0-2.1) 11/06/16 Range/Units 22:47 WBC (4.8-10.8) K/uL RBC (4.40-5.90) Mil/uL Hgb (12.0-18.0) g/dL Hct (35.0-51.0) % MCV (80.0-94.0) fL MCH (27.0-31.0) pg MCHC (33.0-37.0) g/dL RDW (11.5-14.5) % Plt Count (130-400) K/uL MPV (7.2-11.7) fL Neut % (Auto) (50.0-75.0) % Lymph % (Auto) (20.0-40.0) % [place] % (Auto) (0.0-10.0) % Eos % (Auto) (0.0-4.0) % Baso % (Auto) (0.0-2.0) % Neut # (1.8-7.0) K/uL Lymph # (1.0-4.3) K/uL [place] # (0.0-0.8) K/uL Eos # (0.0-0.7) K/uL Baso # (0.0-0.2) K/uL Puncture Site pCO2 (35-45) mm/Hg pO2 (80-100) mm/Hg HCO3 (21-28) mmol/L ABG pH (7.35-7.45) ABG Total CO2 (22-28) mmol/L ABG O2 Saturation (95-98) % ABG Base Excess (-2.0-3.0) mmol/L ABG Hemoglobin (11.7-17.4) g/dL ABG Carboxyhemoglobin (0.5-1.5) % POC ABG HHb (Measured) (0.0-5.0) % ABG Methemoglobin (0.0-3.0) % Law Test A-a O2 Difference mm/Hg Respiratory Index Hgb O2 Saturation (95.0-98.0) % Vent Mode Mechanical Rate FiO2 % Tidal Volume PEEP Sodium 134 (132-148) mmol/L Potassium 3.7 (3.6-5.2) mmol/L Chloride 96 L (98-107) mmol/L Carbon Dioxide 28 (22-30) mmol/L Anion Gap 14 (10-20) BUN 8 L (9-20) mg/dL Creatinine 0.6 L (0.8-1.5) MG/DL Est GFR ( Amer) > 60 Est GFR (Non-Af Amer) > 60 Random Glucose 89 (75-110) mg/dL Calcium 8.0 L (8.6-10.4) mg/dl Phosphorus 3.2 (2.5-4.5) mg/dL Magnesium 1.7 (1.6-2.3) mg/dL Total Bilirubin (0.2-1.3) mg/dL AST (17-59) U/L ALT (21-72) U/L Alkaline Phosphatase (38-126) U/L Total Protein (6.3-8.3) g/dL Albumin (3.5-5.0) g/dL Globulin (2.2-3.9) gm/dL Albumin/Globulin Ratio (1.0-2.1) Laboratory Results - last 24 hr 11/06/16 11/07/16 11/07/16 22:47 06:44 06:44 WBC 8.2 RBC 4.34 L Hgb 12.0 Hct 36.6 MCV 84.2 MCH 27.6 MCHC 32.8 L RDW 15.4 H Plt Count 205 MPV 9.2 Neut % (Auto) 71.2 Lymph % (Auto) 14.4 L [place] % (Auto) 9.1 Eos % (Auto) 4.0 Baso % (Auto) 1.3 Neut # 5.8 Lymph # 1.2 [place] # 0.7 Eos # 0.3 Baso # 0.1 Puncture Site pCO2 pO2 HCO3 ABG pH ABG Total CO2 ABG O2 Saturation ABG Base Excess ABG Hemoglobin ABG Carboxyhemoglobin POC ABG HHb (Measured) ABG Methemoglobin Law Test A-a O2 Difference Respiratory Index Hgb O2 Saturation Vent Mode Mechanical Rate FiO2 Tidal Volume PEEP Sodium 134 133 Potassium 3.7 4.0 Chloride 96 L 96 L Carbon Dioxide 28 25 Anion Gap 14 16 BUN 8 L 9 Creatinine 0.6 L 0.5 L Est GFR ( Amer) > 60 > 60 Est GFR (Non-Af Amer) > 60 > 60 Random Glucose 89 93 Calcium 8.0 L 8.6 Phosphorus 3.2 3.0 Magnesium 1.7 2.0 Total Bilirubin 1.1 AST 111 H D ALT 88 H D Alkaline Phosphatase 85 Total Protein 7.1 Albumin 3.9 Globulin 3.3 Albumin/Globulin Ratio 1.2 11/07/16 18:10 WBC RBC Hgb Hct MCV MCH MCHC RDW Plt Count MPV Neut % (Auto) Lymph % (Auto) [place] % (Auto) Eos % (Auto) Baso % (Auto) Neut # Lymph # [place] # Eos # Baso # Puncture Site Rra pCO2 40 pO2 322 H HCO3 26.0 ABG pH 7.42 ABG Total CO2 27.1 ABG O2 Saturation 99.5 H ABG Base Excess 1.3 ABG Hemoglobin 11.1 L ABG Carboxyhemoglobin 1.1 POC ABG HHb (Measured) 0.5 ABG Methemoglobin 1.0 Law Test Pos A-a O2 Difference 341.0 Respiratory Index 1.1 Hgb O2 Saturation 97.5 Vent Mode A/c Mechanical Rate 14 FiO2 100.0 Tidal Volume 500 PEEP 5 Sodium Potassium Chloride Carbon Dioxide Anion Gap BUN Creatinine Est GFR ( Amer) Est GFR (Non-Af Amer) Random Glucose Calcium Phosphorus Magnesium Total Bilirubin AST ALT Alkaline Phosphatase Total Protein Albumin Globulin Albumin/Globulin Ratio Critical Care Progress Note - Nutrition Nutrition: Nutrition Category Date Time Status NPO Diet [DIET] Diets 11/06/16 Dinner Active Attending/Attestation - Attestation I have personally seen and examined this patient.: Yes I have fully participated in the care of the patient.: Yes I have reviewed all pertinent clinical information: Yes Notes (Text): 11/07/16 18:16 Patient seen and examined in the intensive care unit. Case discussed with house staff in the morning rounds. Patient intubated for persistent tachycardia, agitation and confusion even on Precedex Continue ventilatory support IV fluids with thiamine, folic acid IV sedation
[2016-11-07] MEDS ORDERED: Etomidate 20 mg/10ml Inj IV ONE (17:57)
[2016-11-07] MEDS: Propofol 10 mg/ml Inj (20 ML) ONE (18:04)
[2016-11-07 18:15] LABS: ABG ALLEN TEST POS; ABG MECHANICAL RATE 14; ARTERIAL BLOOD GAS MODE A/C; ARTERIAL BLOOD HGB O2 SAT 97.5 % (95.0-98.0); ATERIAL BLOOD GAS PEEP 5; CARBOXYHEMOGLOBIN 1.1 % (0.5-1.5); DRAW SITE RRA; HHB 0.5 % (0.0-5.0)
--- NOTE | 2016-11-07 18:21 | PCM.PROC ---
Procedures Attestation:: I certify that I have explained the specified Operation(s) or Procedure(s), risks, benefits and reasonable alternatives to the Patient and/or other person responsible. The opportunity was given to ask questions and all questions answered - Intubation Time Out Performed: Yes Sedative: Etomidate Paralytic: Succinylholine Mg Given: 50 Laryngoscope: Ngoc ET Tube Size: 7.5 ET Tube Secured at Depth: 22 ET Tube Secured [place]: Lips ET Tube Placement Confirmation: Visualized Passing Through Cords, Breath Sounds Equal Bilaterally, No Breath Sounds Over Epigastrum, Confirmation w/Capnometry Patient Tolerated Procedure: Well, No Complications Procedure Immediate Complications: None
[2016-11-07] MEDS: Propofol 10 mg/ml Inj (100 ml) IV SCH (19:30)
[2016-11-08] MEDS: Propofol 10 mg/ml Inj (100 ml) IV SCH ×7 (00:30→22:55)
[2016-11-08 06:13] LABS: BASO % 0.4 % (0.0-2.0); EOS # 0.5 K/uL (0.0-0.7); EOS % 4.8 % (0.0-4.0); LYMPH # 1.4 K/uL (1.0-4.3); LYMPH % 14.2 % (20.0-40.0); MEAN CELL VOLUME 84.4 fL (80.0-94.0); MEAN CORPUSCULAR HEMOGLOBIN 28.2 pg (27.0-31.0); MEAN CORPUSCULAR HGB CONC 33.4 g/dL (33.0-37.0); MEAN PLATELET VOLUME 9.1 fL (7.2-11.7); MONO # 0.6 K/uL (0.0-0.8); MONO % 6.8 % (0.0-10.0); WHITE BLOOD COUNT 9.5 K/uL (4.8-10.8)
[2016-11-08] MEDS: Dextrose 5%/0.9% NS 1,000 ML IV SCH ×2 (06:29→15:51)
[2016-11-08 06:31] LABS: ALB/GLOB RATIO 1.2 (1.0-2.1); ALKALINE PHOSPHATASE 82 U/L (38-126); ALT/SGPT 84 U/L (21-72); AST/SGOT 114 U/L (17-59); BILIRUBIN,TOTAL 0.8 mg/dL (0.2-1.3); BLOOD UREA NITROGEN 10 mg/dL (9-20); CALCIUM 8.2 mg/dl (8.6-10.4); CARBON DIOXIDE 25 mmol/L (22-30); CHLORIDE 96 mmol/L (98-107); GFR AFRICAN-AMERICAN > 60; GLUCOSE,RANDOM 99 mg/dL (75-110); MAGNESIUM 2.2 mg/dL (1.6-2.3); PHOSPHOROUS 2.9 mg/dL (2.5-4.5); POTASSIUM 3.4 mmol/L (3.6-5.2); SODIUM 132 mmol/L (132-148); TOTAL PROTEIN 6.7 g/dL (6.3-8.3)
[2016-11-08 06:37] LABS: ABG ALLEN TEST POS; ABG MECHANICAL RATE 14; ARTERIAL BLOOD GAS MODE PRVC; ARTERIAL BLOOD HGB O2 SAT 97.5 % (95.0-98.0); ATERIAL BLOOD GAS PEEP 5; CARBOXYHEMOGLOBIN 1.1 % (0.5-1.5); DRAW SITE R RAD; HHB 0.4 % (0.0-5.0)
[2016-11-08] MEDS: Multiple Vitamins Tab PO SCH (09:41)
[2016-11-08] MEDS: Thiamine 100 mg/ml Inj IV SCH (09:42)
--- NOTE | 2016-11-08 10:24 | RAD ---
PROCEDURE: CHEST RADIOGRAPH, 1 VIEW HISTORY: post intubation COMPARISON: Portable chest 11/06/2016 FINDINGS: LUNGS: No interval infiltrate or pleural effusion is appreciated at this time although the exam is been captured at limited inspiratory volume. Endotracheal tube is now placed with the tip terminating prostate 4 cm above the desmond. NG tube is also in place with tip terminating off the image inferiorly but in the abdomen. PLEURA: No pneumothorax or pleural fluid seen. CARDIOVASCULAR: Normal. OSSEOUS STRUCTURES: No significant abnormalities. VISUALIZED UPPER ABDOMEN: Normal. OTHER FINDINGS: None. IMPRESSION: No acute infiltrate or pleural effusion is appreciated once again. An endotracheal tube is identified placed as discussed above as well as nasogastric tube.
--- NOTE | 2016-11-08 10:32 | RAD ---
HISTORY: vent COMPARISON: Portable chest 11/07/2016 FINDINGS: LUNGS: Endotracheal tube is unchanged in position with the NG tube again identified however the termination is now clearly identified at the epigastric region in the abdomen. Limited chronic in the left basilar bronchovascular markings is identified medially at the left base. No definite infiltrate or pleural effusion bilaterally. Cardiac silhouette remains normal in size. No pulmonary vascular derangement identified. No pneumothorax. PLEURA: As above CARDIOVASCULAR: As above OSSEOUS STRUCTURES: No significant abnormalities. VISUALIZED UPPER ABDOMEN: Normal. OTHER FINDINGS: None. IMPRESSION: Limited crowding in the medial left basilar bronchovascular markings may be a function of mild rotation however no definite infiltrate or pleural effusion is appreciate this time.
[2016-11-08] MEDS: Piperacillin/Tazobact 3.375 GM in Sodium Chloride 100 ML IVPB SCH ×2 (11:36→17:19)
--- NOTE | 2016-11-08 11:46 | CP.PCM.PN ---
Subjective - Date & Time of Evaluation Date of Evaluation: 11/08/16 Time of Evaluation: 11:30 - Subjective Subjective: Patient was seen and examined by me The patient had change in mental status as well as decrease SpO2 yesterday afternoon and required intubation. Currently now on propofol, ativan for sedation and alcohol withdrawl control Objective - Vital Signs/Intake and Output Vital Signs (last 24 hours): Temp Pulse Resp BP Pulse Ox 101.2 F H 102 H 20 135/74 99 11/08/16 04:00 11/08/16 06:32 11/08/16 06:32 11/08/16 06:32 11/08/16 05:33 Intake and Output: 11/08/16 11/08/16 06:59 18:59 Intake Total 1072 Output Total 400 Balance 672 - Medications Medications: Current Medications Famotidine (Pepcid) 20 mg PO DAILY [facility] Last Admin: 11/08/16 09:43 Dose: 20 mg Folic Acid (Folic Acid) 1 mg PO DAILY [facility] Last Admin: 11/08/16 09:41 Dose: 1 mg Heparin Sodium (Porcine) (Heparin) 5,000 units SC Q8 [facility] Last Admin: 11/08/16 06:33 Dose: 5,000 units Dextrose/Sodium Chloride (Dextrose 5%/0.9% Ns 1000 Ml) 1,000 mls @ 100 mls/hr IV .Q10H [facility] Last Admin: 11/08/16 06:29 Dose: Not Given Piperacillin Sod/Tazobactam (Sod 3.375 gm/ Sodium Chloride) 100 mls @ 200 mls/ hr IVPB Q8H [facility] Last Admin: 11/08/16 11:36 Dose: 200 mls/hr Potassium Chloride (Potassium Chloride 20 Meq/100 Ml) 20 meq in 100 mls @ 50 mls/hr IVPB Q2H [facility] Last Admin: 11/08/16 11:35 Dose: 50 mls/hr Lorazepam (Ativan) 2 mg IVP Q4H PRN PRN Reason: Agitation Last Admin: 11/08/16 09:41 Dose: 2 mg Multivitamins (Hexavitamin) 1 tab PO DAILY [facility] Last Admin: 11/08/16 09:41 Dose: 1 tab Propofol (Diprivan) 100 mg IV TITR [facility] Last Admin: 11/08/16 09:40 Dose: 100 mg Thiamine HCl (Vitamin B1 Inj) 100 mg IV DAILY [facility] Last Admin: 11/08/16 09:42 Dose: 100 mg - Labs Labs: 11/08/16 05:59 11/08/16 05:59 PT 13.3 SECONDS (9.7-12.2) H 11/06/16 15:19 INR 1.2 11/06/16 15:19 APTT 30 SECONDS (21-34) 11/06/16 15:19 - Constitutional Appears: Cachectic, Chronically Ill - Head Exam Additional comments: Now intubated - ENT Exam ENT Exam: Mucous Membranes Moist - Respiratory Exam Respiratory Exam: Rales, Rhonchi Additional comments: Now intubated, mechanical breath sounds - GI/Abdominal Exam GI & Abdominal Exam: Soft, Normal Bowel Sounds - Neurological Exam Neurological Exam: Altered - Skin Skin Exam: Pallor, Warm Assessment and Plan - Assessment and Plan (Free Text) Assessment: Assessment & Plan (1) Alcohol withdrawal Assessment and Plan: 11/07: Patient required intubation yesterday after noon. Currently on propofol as well as ativan 11/06: Patient currently on Precedex ggt. Also reciving ativan IV. - Thiamine 100mg IV daily - Multivitamin PO daily - Folic Acid 1mg PO daily - Ativan 2mg IV Q6 poncho - Ativan 4mg IV Q2 PRN (hold if lethargic) - Keep NPO - Monitor vital signs - Monitor for signs of DTs (2) Dyspnea on exertion Assessment and Plan: Patient reports occasionally feeling short of breath, exacerbated with exertion 11/07: Now intubated 11/06: CXRAY pending, did not appear to be fluid overload or pulmonary congestion , pending 2D echo at this time - Nasal cannula O2 prn (3) Prophylactic measure Assessment and Plan: DVT: Heparin 5,000 units SC, SCDs GI: Pepcid 20mg PO daily NPO
[2016-11-08 12:25] LABS: URINE BACTERIA RARE (<OCC); URINE BILIRUBIN NEGATIVE (NEGATIVE); URINE BLOOD NEGATIVE (NEGATIVE); URINE COLOR Yellow (YELLOW); URINE GLUCOSE (UA) NORMAL (Normal); URINE KETONE NEGATIVE (NEGATIVE); URINE LEUKOCYTE ESTERASE NEG Leu/uL (Negative); URINE PROTEIN NEGATIVE (NEGATIVE); URINE UROBILINOGEN NORMAL mg/dL (0.2-1.0); WBC URINE 2 /hpf (0-5)
--- NOTE | 2016-11-08 14:21 | CP.CCUPN ---
<Mackenzie Rodrigues - Last Filed: 11/08/16 14:15> CCU Subjective - Physician Review Subjective (Free Text): Patient was seen and examined at bedside. Patient is intubated and sedated. Unable to obtain review of systems. 11/08/16 14:15 CCU Objective - Vital Signs / Intake & Output Vital Signs (Last 4 hours): Vital Signs Temp Pulse Resp BP Pulse Ox 11/08/16 13:10 90 22 99 11/08/16 13:00 84 19 100 11/08/16 12:50 79 21 99 11/08/16 12:40 73 14 100 11/08/16 12:32 72 14 105/62 11/08/16 12:30 72 14 99 11/08/16 12:20 73 14 100 11/08/16 12:10 74 14 99 11/08/16 12:00 97.5 F L 74 14 100 11/08/16 11:50 74 14 100 11/08/16 11:40 71 14 100 11/08/16 11:32 70 14 102/62 100 11/08/16 11:30 70 14 99 11/08/16 11:20 70 14 99 11/08/16 11:10 71 14 99 11/08/16 11:00 70 14 99 11/08/16 10:50 73 14 99 11/08/16 10:40 74 14 99 11/08/16 10:32 73 14 100/57 L 11/08/16 10:30 73 14 99 11/08/16 10:20 73 14 99 Intake and Output (Last 8hrs): Intake & Output 11/07/16 11/08/16 11/08/16 22:59 06:59 14:59 Intake Total 402 670 Output Total 150 250 Balance 252 420 Intake: Intake, IV Amount 402 670 Right Antecubital 102 170 Right Forearm 300 500 Output: Urine 150 250 Urine, Voided 150 250 - Physical Exam Head: Positive for: Atraumatic, Normocephalic Mouth: Positive for: Dry, Other (intubated) Respiratory/Chest: Positive for: Tachypneic, Other (hypoxic). Negative for: Good Air Exchange, Rales, Rhonchi Cardiovascular: Positive for: Normal S1, S2, Tachycardic Abdomen: Positive for: Distention, Normal Bowel Sounds. Negative for: Tenderness Upper Extremity: Positive for: Normal Inspection. Negative for: Edema Lower Extremity: Positive for: Normal Inspection, NORMAL PULSES. Negative for: Edema Neurological: Positive for: Other (tremors) Skin: Positive for: Warm, Normal Color, Diaphoretic Psychiatric: Positive for: Alert, Agitated. Negative for: Oriented x 3, Normal Affect, Normal Mood - Medications Active Medications: Active Medications Generic Name Dose Route Start Last Admin Trade Name Freq PRN Reason Stop Dose Admin Famotidine 20 mg 11/06/16 15:00 11/08/16 09:43 Pepcid PO 20 mg DAILY JO Administration Folic Acid 1 mg 11/06/16 15:00 11/08/16 09:41 Folic Acid PO 1 mg DAILY JO Administration Heparin Sodium (Porcine) 5,000 units 11/06/16 22:00 11/08/16 06:33 Heparin SC 5,000 units Q8 JO Administration Dextrose/Sodium Chloride 1,000 mls @ 100 mls/hr 11/07/16 09:30 11/08/16 06:29 Dextrose 5%/0.9% Ns 1000 Ml IV Not Given .Q10H JO Piperacillin Sod/Tazobactam 100 mls @ 200 mls/hr 11/08/16 10:00 11/08/16 11: 36 Sod 3.375 gm/ Sodium Chloride IVPB 200 mls/hr Q8H JO Administration Potassium Chloride 20 meq in 100 mls @ 50 mls/hr 11/08/16 14:00 Potassium Chloride 20 Meq/100 Ml IVPB 11/08/16 15:59 ONCE ONE Potassium Chloride 20 meq in 100 mls @ 50 mls/hr 11/08/16 16:00 Potassium Chloride 20 Meq/100 Ml IVPB 11/08/16 17:59 ONCE ONE Lorazepam 2 mg 11/08/16 09:17 11/08/16 09:41 Ativan IVP 2 mg Q4H PRN Administration Agitation Multivitamins 1 tab 11/06/16 15:00 11/08/16 09:41 Hexavitamin PO 1 tab DAILY JO Administration Propofol 100 mg 11/07/16 17:15 11/08/16 11:54 Diprivan IV 100 mg TITR JO Administration Thiamine HCl 100 mg 11/07/16 10:00 11/08/16 09:42 Vitamin B1 Inj IV 100 mg DAILY JO Administration - Patient Studies Lab Studies: Microbiology Studies 11/08/16 09:19 Gram Stain - Preliminary Trachasp Lab Studies 11/08/16 11/08/16 11/08/16 Range/Units 12:14 05:59 05:59 WBC 9.5 (4.8-10.8) K/uL RBC 4.15 L (4.40-5.90) Mil/uL Hgb 11.7 L (12.0-18.0) g/dL Hct 35.0 (35.0-51.0) % MCV 84.4 (80.0-94.0) fL MCH 28.2 (27.0-31.0) pg MCHC 33.4 (33.0-37.0) g/dL RDW 15.0 H (11.5-14.5) % Plt Count 203 (130-400) K/uL MPV 9.1 (7.2-11.7) fL Neut % (Auto) 73.8 (50.0-75.0) % Lymph % (Auto) 14.2 L (20.0-40.0) % [place] % (Auto) 6.8 (0.0-10.0) % Eos % (Auto) 4.8 H (0.0-4.0) % Baso % (Auto) 0.4 (0.0-2.0) % Neut # 7.0 (1.8-7.0) K/uL Lymph # 1.4 (1.0-4.3) K/uL [place] # 0.6 (0.0-0.8) K/uL Eos # 0.5 (0.0-0.7) K/uL Baso # 0.0 (0.0-0.2) K/uL Puncture Site pCO2 (35-45) mm/Hg pO2 (80-100) mm/Hg HCO3 (21-28) mmol/L ABG pH (7.35-7.45) ABG Total CO2 (22-28) mmol/L ABG O2 Saturation (95-98) % ABG Base Excess (-2.0-3.0) mmol/L ABG Hemoglobin (11.7-17.4) g/dL ABG Carboxyhemoglobin (0.5-1.5) % POC ABG HHb (Measured) (0.0-5.0) % ABG Methemoglobin (0.0-3.0) % Law Test A-a O2 Difference mm/Hg Respiratory Index Hgb O2 Saturation (95.0-98.0) % Vent Mode Mechanical Rate FiO2 % Tidal Volume PEEP Sodium 132 (132-148) mmol/L Potassium 3.4 L (3.6-5.2) mmol/L Chloride 96 L (98-107) mmol/L Carbon Dioxide 25 (22-30) mmol/L Anion Gap 14 (10-20) BUN 10 (9-20) mg/dL Creatinine 0.8 (0.8-1.5) MG/DL Est GFR ( Amer) > 60 Est GFR (Non-Af Amer) > 60 Random Glucose 99 (75-110) mg/dL Calcium 8.2 L (8.6-10.4) mg/dl Phosphorus 2.9 (2.5-4.5) mg/dL Magnesium 2.2 (1.6-2.3) mg/dL Total Bilirubin 0.8 (0.2-1.3) mg/dL AST 114 H (17-59) U/L ALT 84 H (21-72) U/L Alkaline Phosphatase 82 (38-126) U/L Total Protein 6.7 (6.3-8.3) g/dL Albumin 3.6 (3.5-5.0) g/dL Globulin 3.1 (2.2-3.9) gm/dL Albumin/Globulin Ratio 1.2 (1.0-2.1) Urine Color Yellow (YELLOW) Urine Clarity Clear (Clear) Urine pH 6.0 (5.0-8.0) Ur Specific [place] 1.004 (1.003-1.030) Urine Protein Negative (NEGATIVE) mg/dL Urine Glucose (UA) Normal (Normal) mg/dL Urine Ketones Negative (NEGATIVE) mg/dL Urine Blood Negative (NEGATIVE) Urine Nitrate Negative (NEGATIVE) Urine Bilirubin Negative (NEGATIVE) Urine Urobilinogen Normal (0.2-1.0) mg/dL Ur Leukocyte Esterase Neg (Negative) [place]/uL Urine WBC (Auto) 2 (0-5) /hpf Ur Squamous Epith Cells < 1 (0-5) /hpf Urine Bacteria Rare (<OCC) 11/08/16 11/07/16 Range/Units 05:10 18:10 WBC (4.8-10.8) K/uL RBC (4.40-5.90) Mil/uL Hgb (12.0-18.0) g/dL Hct (35.0-51.0) % MCV (80.0-94.0) fL MCH (27.0-31.0) pg MCHC (33.0-37.0) g/dL RDW (11.5-14.5) % Plt Count (130-400) K/uL MPV (7.2-11.7) fL Neut % (Auto) (50.0-75.0) % Lymph % (Auto) (20.0-40.0) % [place] % (Auto) (0.0-10.0) % Eos % (Auto) (0.0-4.0) % Baso % (Auto) (0.0-2.0) % Neut # (1.8-7.0) K/uL Lymph # (1.0-4.3) K/uL [place] # (0.0-0.8) K/uL Eos # (0.0-0.7) K/uL Baso # (0.0-0.2) K/uL Puncture Site R rad Rra pCO2 29 L 40 (35-45) mm/Hg pO2 181 H 322 H (80-100) mm/Hg HCO3 27.7 26.0 (21-28) mmol/L ABG pH 7.55 H 7.42 (7.35-7.45) ABG Total CO2 26.3 27.1 (22-28) mmol/L ABG O2 Saturation 99.6 H 99.5 H (95-98) % ABG Base Excess 3.5 H 1.3 (-2.0-3.0) mmol/L ABG Hemoglobin 11.0 L 11.1 L (11.7-17.4) g/dL ABG Carboxyhemoglobin 1.1 1.1 (0.5-1.5) % POC ABG HHb (Measured) 0.4 0.5 (0.0-5.0) % ABG Methemoglobin 1.0 1.0 (0.0-3.0) % Law Test Pos Pos A-a O2 Difference 139.0 341.0 mm/Hg Respiratory Index 0.8 1.1 Hgb O2 Saturation 97.5 97.5 (95.0-98.0) % Vent Mode Prvc A/c Mechanical Rate 14 14 FiO2 50.0 100.0 % Tidal Volume 500 500 PEEP 5 5 Sodium (132-148) mmol/L Potassium (3.6-5.2) mmol/L Chloride (98-107) mmol/L Carbon Dioxide (22-30) mmol/L Anion Gap (10-20) BUN (9-20) mg/dL Creatinine (0.8-1.5) MG/DL Est GFR ( Amer) Est GFR (Non-Af Amer) Random Glucose (75-110) mg/dL Calcium (8.6-10.4) mg/dl Phosphorus (2.5-4.5) mg/dL Magnesium (1.6-2.3) mg/dL Total Bilirubin (0.2-1.3) mg/dL AST (17-59) U/L ALT (21-72) U/L Alkaline Phosphatase (38-126) U/L Total Protein (6.3-8.3) g/dL Albumin (3.5-5.0) g/dL Globulin (2.2-3.9) gm/dL Albumin/Globulin Ratio (1.0-2.1) Urine Color (YELLOW) Urine Clarity (Clear) Urine pH (5.0-8.0) Ur Specific [place] (1.003-1.030) Urine Protein (NEGATIVE) mg/dL Urine Glucose (UA) (Normal) mg/dL Urine Ketones (NEGATIVE) mg/dL Urine Blood (NEGATIVE) Urine Nitrate (NEGATIVE) Urine Bilirubin (NEGATIVE) Urine Urobilinogen (0.2-1.0) mg/dL Ur Leukocyte Esterase (Negative) [place]/uL Urine WBC (Auto) (0-5) /hpf Ur Squamous Epith Cells (0-5) /hpf Urine Bacteria (<OCC) Laboratory Results - last 24 hr 11/07/16 11/08/16 11/08/16 18:10 05:10 05:59 WBC 9.5 RBC 4.15 L Hgb 11.7 L Hct 35.0 MCV 84.4 MCH 28.2 MCHC 33.4 RDW 15.0 H Plt Count 203 MPV 9.1 Neut % (Auto) 73.8 Lymph % (Auto) 14.2 L [place] % (Auto) 6.8 Eos % (Auto) 4.8 H Baso % (Auto) 0.4 Neut # 7.0 Lymph # 1.4 [place] # 0.6 Eos # 0.5 Baso # 0.0 Puncture Site Rra R rad pCO2 40 29 L pO2 322 H 181 H HCO3 26.0 27.7 ABG pH 7.42 7.55 H ABG Total CO2 27.1 26.3 ABG O2 Saturation 99.5 H 99.6 H ABG Base Excess 1.3 3.5 H ABG Hemoglobin 11.1 L 11.0 L ABG Carboxyhemoglobin 1.1 1.1 POC ABG HHb (Measured) 0.5 0.4 ABG Methemoglobin 1.0 1.0 Law Test Pos Pos A-a O2 Difference 341.0 139.0 Respiratory Index 1.1 0.8 Hgb O2 Saturation 97.5 97.5 Vent Mode A/c Prvc Mechanical Rate 14 14 FiO2 100.0 50.0 Tidal Volume 500 500 PEEP 5 5 Sodium Potassium Chloride Carbon Dioxide Anion Gap BUN Creatinine Est GFR ( Amer) Est GFR (Non-Af Amer) Random Glucose Calcium Phosphorus Magnesium Total Bilirubin AST ALT Alkaline Phosphatase Total Protein Albumin Globulin Albumin/Globulin Ratio Urine Color Urine Clarity Urine pH Ur Specific [place] Urine Protein Urine Glucose (UA) Urine Ketones Urine Blood Urine Nitrate Urine Bilirubin Urine Urobilinogen Ur Leukocyte Esterase Urine WBC (Auto) Ur Squamous Epith Cells Urine Bacteria 11/08/16 11/08/16 05:59 12:14 WBC RBC Hgb Hct MCV MCH MCHC RDW Plt Count MPV Neut % (Auto) Lymph % (Auto) [place] % (Auto) Eos % (Auto) Baso % (Auto) Neut # Lymph # [place] # Eos # Baso # Puncture Site pCO2 pO2 HCO3 ABG pH ABG Total CO2 ABG O2 Saturation ABG Base Excess ABG Hemoglobin ABG Carboxyhemoglobin POC ABG HHb (Measured) ABG Methemoglobin Law Test A-a O2 Difference Respiratory Index Hgb O2 Saturation Vent Mode Mechanical Rate FiO2 Tidal Volume PEEP Sodium 132 Potassium 3.4 L Chloride 96 L Carbon Dioxide 25 Anion Gap 14 BUN 10 Creatinine 0.8 Est GFR ( Amer) > 60 Est GFR (Non-Af Amer) > 60 Random Glucose 99 Calcium 8.2 L Phosphorus 2.9 Magnesium 2.2 Total Bilirubin 0.8 AST 114 H ALT 84 H Alkaline Phosphatase 82 Total Protein 6.7 Albumin 3.6 Globulin 3.1 Albumin/Globulin Ratio 1.2 Urine Color Yellow Urine Clarity Clear Urine pH 6.0 Ur Specific [place] 1.004 Urine Protein Negative Urine Glucose (UA) Normal Urine Ketones Negative Urine Blood Negative Urine Nitrate Negative Urine Bilirubin Negative Urine Urobilinogen Normal Ur Leukocyte Esterase Neg Urine WBC (Auto) 2 Ur Squamous Epith Cells < 1 Urine Bacteria Rare Review of Systems - Review of Systems Systems not reviewed;Unavailable: Intubated Critical Care Progress Note - Vent Settings TIDAL VOLUME:: 450 RESP RATE:: 12 FIO2:: 50 PEEP:: 5 - Nutrition Nutrition: Nutrition Category Date Time Status NPO Diet [DIET] Diets 11/06/16 Dinner Active Assessment/Plan (1) Alcohol withdrawal Assessment and plan: 61 year old male with no past medical history, presents to the ED with complaints of tremors that began this morning. Patient was admitted to ICU for monitoring for possible DTs. He has a history of drinking 5-8 24oz. beers daily for many years. His last drink was yesterday afternoon. Patient reports feeling hand tremors, nausea, and sometimes short of breath. As per his , patient has difficulty walking more than 2-4 steps without becoming short of breath. Patient reports having fallen in the past, but is not sure if he has fallen recently. Patient is oriented and has no hallucinations. Patient denies having chest pain, abdominal pain, leg pain, vomiting, fevers, and dizziness. Patient was intubated on 11/07/16 due to increasing agitation, dyspnea, hypoxia, and altered mental status. Continue diprivan drip. Neuro: alert, sedated - Diprivan drip Pulm: Intubated (hypoxic, ams) - Patient was intubated 11/07/16 due to increasing agitation, hallucinations, dyspnea, hypoxia, and ams. - Hx of dyspnea on exertion - CXR: no acute cardiopulmonary disease at this time - Echo: EF59%; borderline concentric LVH; grade-I abnormal relaxation; aortic valve mildly-mod sclerotic CV: Hypertensive, likely secondary to tremors and alcohol withdrawal - Monitor vitals Endo: no acute issues GI: - Tube feeding, Pulmicort Heme: no acute issues Renal: - Hypokalemia: gave KCl ID: - Febrile - Likely infiltrate on CXR 11/08/16 - Started Zosyn 3.375gm IV Q8 - Sputum/trachasp cx: f/u Withdrawal: - D5/NS @100ml/hr - Thiamine 100mg IV daily - Multivitamin PO daily - Folic Acid 1mg PO daily - Continue Ativan 2mg IV Q4 PRN - Continue Diprivan Drip - Monitor vital signs - Monitor for signs of DTs Prophylaxis: - DVT: Heparin 5,000 units SC, SCDs - GI: Pepcid 20mg PO daily Current Visit: Yes Status: Acute <Newton Zhou S - Last Filed: 11/08/16 16:25> CCU Objective - Vital Signs / Intake & Output Vital Signs (Last 4 hours): Vital Signs Temp Pulse Resp BP Pulse Ox 11/08/16 16:00 99.4 F 101 H 22 99 11/08/16 15:50 98 H 22 99 11/08/16 15:40 101 H 25 H 98 11/08/16 15:32 102 H 29 H 131/75 100 11/08/16 15:30 100 H 25 H 100 11/08/16 15:20 100 H 30 H 98 11/08/16 15:10 103 H 28 H 99 11/08/16 15:00 95 H 28 H 99 11/08/16 14:50 95 H 25 H 99 11/08/16 14:40 96 H 29 H 99 11/08/16 14:32 96 H 30 H 127/82 98 11/08/16 14:30 97 H 29 H 100 11/08/16 14:20 97 H 27 H 99 11/08/16 14:10 97 H 31 H 99 11/08/16 14:00 99 H 19 99 11/08/16 13:50 97 H 29 H 99 11/08/16 13:40 90 26 H 97 11/08/16 13:33 95 H 27 H 122/83 100 11/08/16 13:30 93 H 28 H 97 11/08/16 13:20 94 H 31 H 100 11/08/16 13:10 90 22 99 11/08/16 13:00 84 19 100 11/08/16 12:50 79 21 99 11/08/16 12:40 73 14 100 11/08/16 12:32 72 14 105/62 11/08/16 12:30 72 14 99 Intake and Output (Last 8hrs): Intake & Output 11/08/16 11/08/16 11/08/16 06:59 14:59 22:59 Intake Total 670 Output Total 250 Balance 420 Intake: Intake, IV Amount 670 Right Antecubital 170 Right Forearm 500 Output: Urine 250 Urine, Voided 250 - Medications Active Medications: Active Medications Generic Name Dose Route Start Last Admin Trade Name Freq PRN Reason Stop Dose Admin Famotidine 20 mg 11/06/16 15:00 11/08/16 09:43 Pepcid PO 20 mg DAILY JO Administration Folic Acid 1 mg 11/06/16 15:00 11/08/16 09:41 Folic Acid PO 1 mg DAILY JO Administration Heparin Sodium (Porcine) 5,000 units 11/06/16 22:00 11/08/16 14:22 Heparin SC 5,000 units Q8 JO Administration Dextrose/Sodium Chloride 1,000 mls @ 100 mls/hr 11/07/16 09:30 11/08/16 15:51 Dextrose 5%/0.9% Ns 1000 Ml IV 100 mls/hr .Q10H JO Administration Piperacillin Sod/Tazobactam 100 mls @ 200 mls/hr 11/08/16 10:00 11/08/16 11: 36 Sod 3.375 gm/ Sodium Chloride IVPB 200 mls/hr Q8H JO Administration Lorazepam 2 mg 11/08/16 09:17 11/08/16 14:18 Ativan IVP 2 mg Q4H PRN Administration Agitation Multivitamins 1 tab 11/06/16 15:00 11/08/16 09:41 Hexavitamin PO 1 tab DAILY JO Administration Propofol 100 mg 11/07/16 17:15 11/08/16 11:54 Diprivan IV 100 mg TITR JO Administration Thiamine HCl 100 mg 11/07/16 10:00 11/08/16 09:42 Vitamin B1 Inj IV 100 mg DAILY JO Administration - Patient Studies Lab Studies: Microbiology Studies 11/08/16 09:19 Gram Stain - Preliminary Trachasp Lab Studies 11/08/16 11/08/16 11/08/16 Range/Units 12:14 05:59 05:59 WBC 9.5 (4.8-10.8) K/uL RBC 4.15 L (4.40-5.90) Mil/uL Hgb 11.7 L (12.0-18.0) g/dL Hct 35.0 (35.0-51.0) % MCV 84.4 (80.0-94.0) fL MCH 28.2 (27.0-31.0) pg MCHC 33.4 (33.0-37.0) g/dL RDW 15.0 H (11.5-14.5) % Plt Count 203 (130-400) K/uL MPV 9.1 (7.2-11.7) fL Neut % (Auto) 73.8 (50.0-75.0) % Lymph % (Auto) 14.2 L (20.0-40.0) % [place] % (Auto) 6.8 (0.0-10.0) % Eos % (Auto) 4.8 H (0.0-4.0) % Baso % (Auto) 0.4 (0.0-2.0) % Neut # 7.0 (1.8-7.0) K/uL Lymph # 1.4 (1.0-4.3) K/uL [place] # 0.6 (0.0-0.8) K/uL Eos # 0.5 (0.0-0.7) K/uL Baso # 0.0 (0.0-0.2) K/uL Puncture Site pCO2 (35-45) mm/Hg pO2 (80-100) mm/Hg HCO3 (21-28) mmol/L ABG pH (7.35-7.45) ABG Total CO2 (22-28) mmol/L ABG O2 Saturation (95-98) % ABG Base Excess (-2.0-3.0) mmol/L ABG Hemoglobin (11.7-17.4) g/dL ABG Carboxyhemoglobin (0.5-1.5) % POC ABG HHb (Measured) (0.0-5.0) % ABG Methemoglobin (0.0-3.0) % Law Test A-a O2 Difference mm/Hg Respiratory Index Hgb O2 Saturation (95.0-98.0) % Vent Mode Mechanical Rate FiO2 % Tidal Volume PEEP Sodium 132 (132-148) mmol/L Potassium 3.4 L (3.6-5.2) mmol/L Chloride 96 L (98-107) mmol/L Carbon Dioxide 25 (22-30) mmol/L Anion Gap 14 (10-20) BUN 10 (9-20) mg/dL Creatinine 0.8 (0.8-1.5) MG/DL Est GFR ( Amer) > 60 Est GFR (Non-Af Amer) > 60 Random Glucose 99 (75-110) mg/dL Calcium 8.2 L (8.6-10.4) mg/dl Phosphorus 2.9 (2.5-4.5) mg/dL Magnesium 2.2 (1.6-2.3) mg/dL Total Bilirubin 0.8 (0.2-1.3) mg/dL AST 114 H (17-59) U/L ALT 84 H (21-72) U/L Alkaline Phosphatase 82 (38-126) U/L Total Protein 6.7 (6.3-8.3) g/dL Albumin 3.6 (3.5-5.0) g/dL Globulin 3.1 (2.2-3.9) gm/dL Albumin/Globulin Ratio 1.2 (1.0-2.1) Urine Color Yellow (YELLOW) Urine Clarity Clear (Clear) Urine pH 6.0 (5.0-8.0) Ur Specific [place] 1.004 (1.003-1.030) Urine Protein Negative (NEGATIVE) mg/dL Urine Glucose (UA) Normal (Normal) mg/dL Urine Ketones Negative (NEGATIVE) mg/dL Urine Blood Negative (NEGATIVE) Urine Nitrate Negative (NEGATIVE) Urine Bilirubin Negative (NEGATIVE) Urine Urobilinogen Normal (0.2-1.0) mg/dL Ur Leukocyte Esterase Neg (Negative) [place]/uL Urine WBC (Auto) 2 (0-5) /hpf Ur Squamous Epith Cells < 1 (0-5) /hpf Urine Bacteria Rare (<OCC) 11/08/16 11/07/16 Range/Units 05:10 18:10 WBC (4.8-10.8) K/uL RBC (4.40-5.90) Mil/uL Hgb (12.0-18.0) g/dL Hct (35.0-51.0) % MCV (80.0-94.0) fL MCH (27.0-31.0) pg MCHC (33.0-37.0) g/dL RDW (11.5-14.5) % Plt Count (130-400) K/uL MPV (7.2-11.7) fL Neut % (Auto) (50.0-75.0) % Lymph % (Auto) (20.0-40.0) % [place] % (Auto) (0.0-10.0) % Eos % (Auto) (0.0-4.0) % Baso % (Auto) (0.0-2.0) % Neut # (1.8-7.0) K/uL Lymph # (1.0-4.3) K/uL [place] # (0.0-0.8) K/uL Eos # (0.0-0.7) K/uL Baso # (0.0-0.2) K/uL Puncture Site R rad Rra pCO2 29 L 40 (35-45) mm/Hg pO2 181 H 322 H (80-100) mm/Hg HCO3 27.7 26.0 (21-28) mmol/L ABG pH 7.55 H 7.42 (7.35-7.45) ABG Total CO2 26.3 27.1 (22-28) mmol/L ABG O2 Saturation 99.6 H 99.5 H (95-98) % ABG Base Excess 3.5 H 1.3 (-2.0-3.0) mmol/L ABG Hemoglobin 11.0 L 11.1 L (11.7-17.4) g/dL ABG Carboxyhemoglobin 1.1 1.1 (0.5-1.5) % POC ABG HHb (Measured) 0.4 0.5 (0.0-5.0) % ABG Methemoglobin 1.0 1.0 (0.0-3.0) % Law Test Pos Pos A-a O2 Difference 139.0 341.0 mm/Hg Respiratory Index 0.8 1.1 Hgb O2 Saturation 97.5 97.5 (95.0-98.0) % Vent Mode Prvc A/c Mechanical Rate 14 14 FiO2 50.0 100.0 % Tidal Volume 500 500 PEEP 5 5 Sodium (132-148) mmol/L Potassium (3.6-5.2) mmol/L Chloride (98-107) mmol/L Carbon Dioxide (22-30) mmol/L Anion Gap (10-20) BUN (9-20) mg/dL Creatinine (0.8-1.5) MG/DL Est GFR ( Amer) Est GFR (Non-Af Amer) Random Glucose (75-110) mg/dL Calcium (8.6-10.4) mg/dl Phosphorus (2.5-4.5) mg/dL Magnesium (1.6-2.3) mg/dL Total Bilirubin (0.2-1.3) mg/dL AST (17-59) U/L ALT (21-72) U/L Alkaline Phosphatase (38-126) U/L Total Protein (6.3-8.3) g/dL Albumin (3.5-5.0) g/dL Globulin (2.2-3.9) gm/dL Albumin/Globulin Ratio (1.0-2.1) Urine Color (YELLOW) Urine Clarity (Clear) Urine pH (5.0-8.0) Ur Specific [place] (1.003-1.030) Urine Protein (NEGATIVE) mg/dL Urine Glucose (UA) (Normal) mg/dL Urine Ketones (NEGATIVE) mg/dL Urine Blood (NEGATIVE) Urine Nitrate (NEGATIVE) Urine Bilirubin (NEGATIVE) Urine Urobilinogen (0.2-1.0) mg/dL Ur Leukocyte Esterase (Negative) [place]/uL Urine WBC (Auto) (0-5) /hpf Ur Squamous Epith Cells (0-5) /hpf Urine Bacteria (<OCC) Laboratory Results - last 24 hr 11/07/16 11/08/16 11/08/16 18:10 05:10 05:59 WBC 9.5 RBC 4.15 L Hgb 11.7 L Hct 35.0 MCV 84.4 MCH 28.2 MCHC 33.4 RDW 15.0 H Plt Count 203 MPV 9.1 Neut % (Auto) 73.8 Lymph % (Auto) 14.2 L [place] % (Auto) 6.8 Eos % (Auto) 4.8 H Baso % (Auto) 0.4 Neut # 7.0 Lymph # 1.4 [place] # 0.6 Eos # 0.5 Baso # 0.0 Puncture Site Rra R rad pCO2 40 29 L pO2 322 H 181 H HCO3 26.0 27.7 ABG pH 7.42 7.55 H ABG Total CO2 27.1 26.3 ABG O2 Saturation 99.5 H 99.6 H ABG Base Excess 1.3 3.5 H ABG Hemoglobin 11.1 L 11.0 L ABG Carboxyhemoglobin 1.1 1.1 POC ABG HHb (Measured) 0.5 0.4 ABG Methemoglobin 1.0 1.0 Law Test Pos Pos A-a O2 Difference 341.0 139.0 Respiratory Index 1.1 0.8 Hgb O2 Saturation 97.5 97.5 Vent Mode A/c Prvc Mechanical Rate 14 14 FiO2 100.0 50.0 Tidal Volume 500 500 PEEP 5 5 Sodium Potassium Chloride Carbon Dioxide Anion Gap BUN Creatinine Est GFR ( Amer) Est GFR (Non-Af Amer) Random Glucose Calcium Phosphorus Magnesium Total Bilirubin AST ALT Alkaline Phosphatase Total Protein Albumin Globulin Albumin/Globulin Ratio Urine Color Urine Clarity Urine pH Ur Specific [place] Urine Protein Urine Glucose (UA) Urine Ketones Urine Blood Urine Nitrate Urine Bilirubin Urine Urobilinogen Ur Leukocyte Esterase Urine WBC (Auto) Ur Squamous Epith Cells Urine Bacteria 11/08/16 11/08/16 05:59 12:14 WBC RBC Hgb Hct MCV MCH MCHC RDW Plt Count MPV Neut % (Auto) Lymph % (Auto) [place] % (Auto) Eos % (Auto) Baso % (Auto) Neut # Lymph # [place] # Eos # Baso # Puncture Site pCO2 pO2 HCO3 ABG pH ABG Total CO2 ABG O2 Saturation ABG Base Excess ABG Hemoglobin ABG Carboxyhemoglobin POC ABG HHb (Measured) ABG Methemoglobin Law Test A-a O2 Difference Respiratory Index Hgb O2 Saturation Vent Mode Mechanical Rate FiO2 Tidal Volume PEEP Sodium 132 Potassium 3.4 L Chloride 96 L Carbon Dioxide 25 Anion Gap 14 BUN 10 Creatinine 0.8 Est GFR ( Amer) > 60 Est GFR (Non-Af Amer) > 60 Random Glucose 99 Calcium 8.2 L Phosphorus 2.9 Magnesium 2.2 Total Bilirubin 0.8 AST 114 H ALT 84 H Alkaline Phosphatase 82 Total Protein 6.7 Albumin 3.6 Globulin 3.1 Albumin/Globulin Ratio 1.2 Urine Color Yellow Urine Clarity Clear Urine pH 6.0 Ur Specific [place] 1.004 Urine Protein Negative Urine Glucose (UA) Normal Urine Ketones Negative Urine Blood Negative Urine Nitrate Negative Urine Bilirubin Negative Urine Urobilinogen Normal Ur Leukocyte Esterase Neg Urine WBC (Auto) 2 Ur Squamous Epith Cells < 1 Urine Bacteria Rare Critical Care Progress Note - Nutrition Nutrition: Nutrition Category Date Time Status NPO Diet [DIET] Diets 11/06/16 Dinner Active Attending/Attestation - Attestation I have personally seen and examined this patient.: Yes I have fully participated in the care of the patient.: Yes I have reviewed all pertinent clinical information: Yes Notes (Text): 11/08/16 16:24 Patient seen and examined in the intensive care unit. Case discussed with house staff the morning on speed. Remains intubated on ventilatory support Started on antibiotics for possible pneumonia, overnight febrile Follow-up culture and sensitivity Continue IV sedation Continue thiamine and folic acid Potassium and magnesium supplement Start NGT feeding
[2016-11-08] MEDS ORDERED: Acetaminophen 650mg/20.3ml solution UD PO STA (23:41)
[2016-11-09] MEDS: Propofol 10 mg/ml Inj (100 ml) IV SCH ×6 (01:00→22:23)
[2016-11-09] MEDS: Piperacillin/Tazobact 3.375 GM in Sodium Chloride 100 ML IVPB SCH ×3 (02:00→17:10)
[2016-11-09] MEDS: Dextrose 5%/0.9% NS 1,000 ML IV SCH (02:50)
[2016-11-09 05:51] LABS: ABG ALLEN TEST POS; ABG MECHANICAL RATE 12; ARTERIAL BLOOD GAS MODE PRVC; ARTERIAL BLOOD HGB O2 SAT 96.9 % (95.0-98.0); ATERIAL BLOOD GAS PEEP 5; CARBOXYHEMOGLOBIN 1.4 % (0.5-1.5); DRAW SITE R RAD; HHB 0.8 % (0.0-5.0); METHEMOGLOBIN 0.9 % (0.0-3.0)
[2016-11-09 06:35] LABS: BASO # 0.1 K/uL (0.0-0.2); BASO % 0.6 % (0.0-2.0); EOS # 0.9 K/uL (0.0-0.7); EOS % 9.1 % (0.0-4.0); HEMATOCRIT 32.6 % (35.0-51.0); LYMPH # 1.5 K/uL (1.0-4.3); MEAN CELL VOLUME 85.9 fL (80.0-94.0); MEAN CORPUSCULAR HGB CONC 32.6 g/dL (33.0-37.0); MEAN PLATELET VOLUME 9.7 fL (7.2-11.7); MONO # 0.7 K/uL (0.0-0.8); MONO % 7.2 % (0.0-10.0); RED CELL DISTRIBUTION WIDTH 15.5 % (11.5-14.5); WHITE BLOOD COUNT 9.4 K/uL (4.8-10.8)
[2016-11-09 07:04] LABS: ALB/GLOB RATIO 1.1 (1.0-2.1); ALKALINE PHOSPHATASE 73 U/L (38-126); ALT/SGPT 76 U/L (21-72); AST/SGOT 105 U/L (17-59); BILIRUBIN,TOTAL 0.8 mg/dL (0.2-1.3); BLOOD UREA NITROGEN 8 mg/dL (9-20); CARBON DIOXIDE 22 mmol/L (22-30); CHLORIDE 104 mmol/L (98-107); GFR AFRICAN-AMERICAN > 60; GLUCOSE,RANDOM 121 mg/dL (75-110); MAGNESIUM 2.4 mg/dL (1.6-2.3); PHOSPHOROUS 4.6 mg/dL (2.5-4.5); SODIUM 136 mmol/L (132-148)
[2016-11-09] MEDS: Sodium Chloride 0.9% 1,000 ML IV SCH ×2 (09:00→22:00)
[2016-11-09] MEDS: Multiple Vitamins Tab PO SCH (09:13)
[2016-11-09] MEDS: Thiamine 100 mg/ml Inj IV SCH (09:13)
--- NOTE | 2016-11-09 09:15 | CP.PCM.PN ---
Subjective - Date & Time of Evaluation Date of Evaluation: 11/09/16 Time of Evaluation: 09:00 - Subjective Subjective: Patient was seen and examined. Patient remains intubated at this time and is on sedation with propofol. Currently the patient's CBC is stable, history AST and anal tear both downtrending. Objective - Vital Signs/Intake and Output Vital Signs (last 24 hours): Temp Pulse Resp BP Pulse Ox 97.7 F 89 26 H 118/80 100 11/09/16 07:30 11/09/16 08:10 11/09/16 08:10 11/09/16 07:33 11/09/16 08:10 Intake and Output: 11/09/16 11/09/16 06:59 18:59 Intake Total 1919.2 313.2 Output Total 1200 90 Balance 719.2 223.2 - Medications Medications: Current Medications Famotidine (Pepcid) 20 mg PO DAILY [facility] Last Admin: 11/08/16 09:43 Dose: 20 mg Folic Acid (Folic Acid) 1 mg PO DAILY [facility] Last Admin: 11/08/16 09:41 Dose: 1 mg Heparin Sodium (Porcine) (Heparin) 5,000 units SC Q8 [facility] Last Admin: 11/09/16 05:20 Dose: 5,000 units Dextrose/Sodium Chloride (Dextrose 5%/0.9% Ns 1000 Ml) 1,000 mls @ 100 mls/hr IV .Q10H [facility] Last Admin: 11/09/16 02:50 Dose: 100 mls/hr Piperacillin Sod/Tazobactam (Sod 3.375 gm/ Sodium Chloride) 100 mls @ 200 mls/ hr IVPB Q8H [facility] Last Admin: 11/09/16 02:00 Dose: 200 mls/hr Potassium Chloride (Potassium Chloride 20 Meq/100 Ml) 20 meq in 100 mls @ 50 mls/hr IVPB Q2H [facility] Stop: 11/09/16 12:59 Lorazepam (Ativan) 2 mg IVP Q4H PRN PRN Reason: Agitation Last Admin: 11/08/16 17:58 Dose: 2 mg Multivitamins (Hexavitamin) 1 tab PO DAILY [facility] Last Admin: 11/08/16 09:41 Dose: 1 tab Propofol (Diprivan) 100 mg IV TITR [facility] Last Admin: 11/09/16 04:40 Dose: 100 mg Thiamine HCl (Vitamin B1 Inj) 100 mg IV DAILY [facility] Last Admin: 11/08/16 09:42 Dose: 100 mg - Labs Labs: 11/09/16 06:27 11/09/16 06:27 PT 13.3 SECONDS (9.7-12.2) H 11/06/16 15:19 INR 1.2 11/06/16 15:19 APTT 30 SECONDS (21-34) 11/06/16 15:19 - Constitutional Appears: Older Than Stated Age, Chronically Ill - Head Exam Additional comments: Mechanical intubated - ENT Exam ENT Exam: Mucous Membranes Moist Additional comments: Intubated, also NGT as well - Respiratory Exam Additional comments: He is Intubated/Mechanical breath sounds - GI/Abdominal Exam GI & Abdominal Exam: Soft. absent: Distended, Firm, Guarding, Rigid, Tenderness - Skin Skin Exam: Pallor, Warm Assessment and Plan - Assessment and Plan (Free Text) Assessment: Assessment & Plan (1) Alcohol withdrawal/Delirium Tremors Assessment and Plan: 11/09: Remains intubated at this time. AST and ALT are both down trending. 11/08: Patient required intubation yesterday after noon. Currently on propofol as well as ativan 11/07: Patient currently on Precedex ggt. Also reciving ativan IV. - Thiamine 100mg IV daily - Multivitamin PO daily - Folic Acid 1mg PO daily - Ativan 2mg IV Q6 poncho - Ativan 4mg IV Q2 PRN (hold if lethargic) - Keep NPO - Monitor vital signs - Monitor for signs of DTs (2) Dyspnea on exertion Assessment and Plan: 11/09: Echo has now returned, EF 45%, borderline LVH reported 11/07: Now intubated 11/06: CXRAY pending, did not appear to be fluid overload or pulmonary congestion , pending 2D echo at this time (3) Prophylactic measure Assessment and Plan: DVT: Heparin 5,000 units SC, SCDs GI: Pepcid 20mg PO daily
--- NOTE | 2016-11-09 09:25 | RAD ---
HISTORY: intubated COMPARISON: Portable chest 12/09/2016 FINDINGS: LUNGS: Limited probable atelectasis seen manifest by a hazy density at the medial right base without obscuring the right hemidiaphragm much. Linear atelectasis is appreciate the medial left base. No definite infiltrates in the left base. Endotracheal tube is unchanged in position. Nasogastric tube is again identified with its tip off the inferior margins of the image. The tube is identified entering into the abdomen once again however. PLEURA: No significant pleural effusion identified, no pneumothorax apparent. CARDIOVASCULAR: Normal. OSSEOUS STRUCTURES: No significant abnormalities. VISUALIZED UPPER ABDOMEN: Normal. OTHER FINDINGS: None. IMPRESSION: Limited medial right basilar atelectasis is favored over infiltrate in the interval. Linear atelectasis is seen at the left base medially. No pleural effusion or pneumothorax.
[2016-11-09] MEDS: Potassium Chloride 20 mEq/15 ml LIQ UD PO SCH ×3 (10:36→17:09)
--- NOTE | 2016-11-09 15:54 | CP.CCUPN ---
<Mackenzie Rodrigues - Last Filed: 11/09/16 15:51> CCU Subjective - Physician Review Subjective (Free Text): Patient was seen and examined at bedside. Patient is intubated and sedated. Unable to obtain review of systems. 11/09/16 15:51 CCU Objective - Vital Signs / Intake & Output Vital Signs (Last 4 hours): Vital Signs Temp Pulse Resp BP Pulse Ox 11/09/16 15:00 90 22 98 11/09/16 14:57 95 H 27 H 106/62 99 11/09/16 14:50 88 17 99 11/09/16 14:40 86 18 99 11/09/16 14:30 86 19 98 11/09/16 14:20 88 25 H 99 11/09/16 14:10 85 19 98 11/09/16 14:00 94 H 18 97 11/09/16 13:50 91 H 17 97 11/09/16 13:40 102 H 18 97 11/09/16 13:30 105 H 25 H 95 11/09/16 13:20 107 H 21 95 11/09/16 13:10 109 H 25 H 94 L 11/09/16 13:04 113 H 21 133/63 94 L 11/09/16 13:00 116 H 31 H 93 L 11/09/16 12:50 113 H 25 H 94 L 11/09/16 12:40 122 H 29 H 98 11/09/16 12:34 119 H 31 H 161/116 H 94 L 11/09/16 12:30 122 H 21 100 11/09/16 12:20 102 H 25 H 97 11/09/16 12:10 106 H 21 98 11/09/16 12:00 98.0 F 111 H 18 100 Intake and Output (Last 8hrs): Intake & Output 11/09/16 11/09/16 11/09/16 06:59 14:59 22:59 Intake Total 1312.8 1514.1 154 Output Total 800 1030 125 Balance 512.8 484.1 29 Weight 171 lb Intake: Intake, IV Amount 1152.8 1304.1 134 Left Forearm 100 10 Left Hand 10 Right Antecubital 252.8 264.1 34 Right Forearm 800 1020 100 Tube Feeding 160 210 20 Output: Urine 800 1030 125 Urethral ([place]) 800 1030 125 Other: # Bowel Movements 0 0 - Physical Exam Head: Positive for: Atraumatic, Normocephalic Extroacular Muscles: Positive for: EOMI Mouth: Positive for: Dry, Other (intubated) Respiratory/Chest: Positive for: Tachypneic, Other (hypoxic). Negative for: Good Air Exchange, Rales, Rhonchi Cardiovascular: Positive for: Regular Rate and Rhythm, Normal S1, S2. Negative for: Tachycardic, Bradycardic Abdomen: Positive for: Distention, Normal Bowel Sounds. Negative for: Tenderness Upper Extremity: Positive for: Normal Inspection. Negative for: Edema Lower Extremity: Positive for: Normal Inspection, NORMAL PULSES. Negative for: Edema Neurological: Positive for: Other (tremors) Skin: Positive for: Warm, Normal Color, Diaphoretic Psychiatric: Negative for: Alert, Oriented x 3, Normal Affect, Normal Mood - Medications Active Medications: Active Medications Generic Name Dose Route Start Last Admin Trade Name Freq PRN Reason Stop Dose Admin Famotidine 20 mg 11/09/16 10:00 11/09/16 10:00 Pepcid IVP Not Given DAILY JO Folic Acid 1 mg 11/06/16 15:00 11/09/16 09:13 Folic Acid PO 1 mg DAILY JO Administration Heparin Sodium (Porcine) 5,000 units 11/06/16 22:00 11/09/16 13:08 Heparin SC 5,000 units Q8 JO Administration Piperacillin Sod/Tazobactam 100 mls @ 200 mls/hr 11/08/16 10:00 11/09/16 10: 28 Sod 3.375 gm/ Sodium Chloride IVPB 200 mls/hr Q8H JO Administration Sodium Chloride 1,000 mls @ 100 mls/hr 11/09/16 09:45 11/09/16 09:00 Sodium Chloride 0.9% IV 100 mls/hr .Q10H JO Administration Lorazepam 2 mg 11/08/16 09:17 11/09/16 12:04 Ativan IVP 2 mg Q4H PRN Administration Agitation Multivitamins 1 tab 11/06/16 15:00 11/09/16 09:13 Hexavitamin PO 1 tab DAILY JO Administration Potassium Chloride 20 meq 11/09/16 09:45 11/09/16 13:08 Potassium Chloride Oral Soln PO 11/09/16 17:46 20 meq Q4H JO Administration Propofol 100 mg 11/07/16 17:15 11/09/16 15:44 Diprivan IV 60 mg TITR JO Administration Thiamine HCl 100 mg 11/07/16 10:00 11/09/16 09:13 Vitamin B1 Inj IV 100 mg DAILY JO Administration - Patient Studies Lab Studies: Microbiology Studies 11/08/16 12:26 Blood Culture - Preliminary Blood-Venous NO GROWTH AFTER 24 HOURS 11/08/16 11:50 Blood Culture - Preliminary Blood-Venous NO GROWTH AFTER 24 HOURS 11/08/16 09:20 Urine Culture - Final Urine,[place] No Growth (<1,000 CFU/ML) 11/08/16 09:19 Gram Stain - Final Trachasp Sputum Culture - Final Yeast Species 11/06/16 Unknown MRSA Culture (Admit) - Final Naris MRSA NOT DETECTED Lab Studies 11/09/16 11/09/16 11/09/16 Range/Units 06:27 06:27 05:08 WBC 9.4 (4.8-10.8) K/uL RBC 3.79 L (4.40-5.90) Mil/uL Hgb 10.6 L (12.0-18.0) g/dL Hct 32.6 L (35.0-51.0) % MCV 85.9 (80.0-94.0) fL MCH 28.0 (27.0-31.0) pg MCHC 32.6 L (33.0-37.0) g/dL RDW 15.5 H (11.5-14.5) % Plt Count 184 (130-400) K/uL MPV 9.7 (7.2-11.7) fL Neut % (Auto) 67.1 (50.0-75.0) % Lymph % (Auto) 16.0 L (20.0-40.0) % [place] % (Auto) 7.2 (0.0-10.0) % Eos % (Auto) 9.1 H (0.0-4.0) % Baso % (Auto) 0.6 (0.0-2.0) % Neut # 6.3 (1.8-7.0) K/uL Lymph # 1.5 (1.0-4.3) K/uL [place] # 0.7 (0.0-0.8) K/uL Eos # 0.9 H (0.0-0.7) K/uL Baso # 0.1 (0.0-0.2) K/uL Puncture Site R rad pCO2 42 (35-45) mm/Hg pO2 114 H (80-100) mm/Hg HCO3 25.2 (21-28) mmol/L ABG pH 7.39 (7.35-7.45) ABG Total CO2 26.7 (22-28) mmol/L ABG O2 Saturation 99.2 H (95-98) % ABG Base Excess 0.3 (-2.0-3.0) mmol/L ABG Hemoglobin 10.6 L (11.7-17.4) g/dL ABG Carboxyhemoglobin 1.4 (0.5-1.5) % POC ABG HHb (Measured) 0.8 (0.0-5.0) % ABG Methemoglobin 0.9 (0.0-3.0) % Law Test Pos A-a O2 Difference 190.0 mm/Hg Respiratory Index 1.7 Hgb O2 Saturation 96.9 (95.0-98.0) % Vent Mode Prvc Mechanical Rate 12 FiO2 50.0 % Tidal Volume 450 PEEP 5 Sodium 136 (132-148) mmol/L Potassium 3.0 L (3.6-5.2) mmol/L Chloride 104 (98-107) mmol/L Carbon Dioxide 22 (22-30) mmol/L Anion Gap 13 (10-20) BUN 8 L (9-20) mg/dL Creatinine 0.7 L (0.8-1.5) MG/DL Est GFR ( Amer) > 60 Est GFR (Non-Af Amer) > 60 Random Glucose 121 H (75-110) mg/dL Calcium 8.0 L (8.6-10.4) mg/dl Phosphorus 4.6 H (2.5-4.5) mg/dL Magnesium 2.4 H (1.6-2.3) mg/dL Total Bilirubin 0.8 (0.2-1.3) mg/dL AST 105 H (17-59) U/L ALT 76 H (21-72) U/L Alkaline Phosphatase 73 (38-126) U/L Total Protein 6.0 L (6.3-8.3) g/dL Albumin 3.1 L (3.5-5.0) g/dL Globulin 2.9 (2.2-3.9) gm/dL Albumin/Globulin Ratio 1.1 (1.0-2.1) Laboratory Results - last 24 hr 11/09/16 11/09/16 11/09/16 05:08 06:27 06:27 WBC 9.4 RBC 3.79 L Hgb 10.6 L Hct 32.6 L MCV 85.9 MCH 28.0 MCHC 32.6 L RDW 15.5 H Plt Count 184 MPV 9.7 Neut % (Auto) 67.1 Lymph % (Auto) 16.0 L [place] % (Auto) 7.2 Eos % (Auto) 9.1 H Baso % (Auto) 0.6 Neut # 6.3 Lymph # 1.5 [place] # 0.7 Eos # 0.9 H Baso # 0.1 Puncture Site R rad pCO2 42 pO2 114 H HCO3 25.2 ABG pH 7.39 ABG Total CO2 26.7 ABG O2 Saturation 99.2 H ABG Base Excess 0.3 ABG Hemoglobin 10.6 L ABG Carboxyhemoglobin 1.4 POC ABG HHb (Measured) 0.8 ABG Methemoglobin 0.9 Law Test Pos A-a O2 Difference 190.0 Respiratory Index 1.7 Hgb O2 Saturation 96.9 Vent Mode Prvc Mechanical Rate 12 FiO2 50.0 Tidal Volume 450 PEEP 5 Sodium 136 Potassium 3.0 L Chloride 104 Carbon Dioxide 22 Anion Gap 13 BUN 8 L Creatinine 0.7 L Est GFR ( Amer) > 60 Est GFR (Non-Af Amer) > 60 Random Glucose 121 H Calcium 8.0 L Phosphorus 4.6 H Magnesium 2.4 H Total Bilirubin 0.8 AST 105 H ALT 76 H Alkaline Phosphatase 73 Total Protein 6.0 L Albumin 3.1 L Globulin 2.9 Albumin/Globulin Ratio 1.1 Review of Systems - Review of Systems Systems not reviewed;Unavailable: Intubated Critical Care Progress Note - Vent Settings TIDAL VOLUME:: 450 RESP RATE:: 12 FIO2:: 50 PEEP:: 5 Assessment/Plan (1) Alcohol withdrawal Assessment and plan: 61 year old male with no past medical history, presents to the ED with complaints of tremors that began this morning. Patient was admitted to ICU for monitoring for possible DTs. He has a history of drinking 5-8 24oz. beers daily for many years. His last drink was yesterday afternoon. Patient reports feeling hand tremors, nausea, and sometimes short of breath. As per his , patient has difficulty walking more than 2-4 steps without becoming short of breath. Patient reports having fallen in the past, but is not sure if he has fallen recently. Patient is oriented and has no hallucinations. Patient denies having chest pain, abdominal pain, leg pain, vomiting, fevers, and dizziness. Patient was intubated on 11/07/16 due to increasing agitation, dyspnea, hypoxia, and altered mental status. Tapering diprivan drip (11/09/16). Continue to monitor. Neuro: alert, sedated - Diprivan drip- tapering down Pulm: Intubated (hypoxic, ams) - Patient was intubated 11/07/16 due to increasing agitation, hallucinations, dyspnea, hypoxia, and ams. - Hx of dyspnea on exertion - CXR (11/09/16): limited medial right basilar atelectasis; linear atelectasis at left base medially - Echo: EF59%; borderline concentric LVH; grade-I abnormal relaxation; aortic valve mildly-mod sclerotic CV: Hypertensive, likely secondary to tremors and alcohol withdrawal - Monitor vitals Endo: no acute issues GI: - Tube feeding, Pulmicort Heme: no acute issues Renal: - Hypokalemia: gave KCl ID: - Febrile - Started Zosyn 3.375gm IV Q8 - Sputum/trachasp cx: + yeast species - Blood cx: no growth x24hrs - Urine cx: no growth Withdrawal: - D5/NS @100ml/hr - Thiamine 100mg IV daily - Multivitamin PO daily - Folic Acid 1mg PO daily - Continue Ativan 2mg IV Q4 PRN - Continue Diprivan Drip - Monitor vital signs - Monitor for signs of DTs Prophylaxis: - DVT: Heparin 5,000 units SC, SCDs - GI: Pepcid 20mg PO daily Current Visit: Yes Status: Acute <Diego Bailey P - Last Filed: 11/10/16 00:11> CCU Objective - Vital Signs / Intake & Output Vital Signs (Last 4 hours): Vital Signs Pulse Resp BP Pulse Ox 11/10/16 00:00 82 20 97 11/09/16 23:53 81 20 99/48 L 91 L 11/09/16 23:50 80 14 98 11/09/16 23:40 85 22 98 11/09/16 23:30 83 21 97 11/09/16 23:20 82 22 99 11/09/16 23:10 84 22 99 11/09/16 23:00 83 14 100 11/09/16 22:53 81 19 111/49 L 96 11/09/16 22:50 83 24 99 11/09/16 22:40 81 22 99 11/09/16 22:30 82 22 99 11/09/16 22:20 82 19 99 11/09/16 22:10 84 17 98 11/09/16 22:00 93 H 19 100 11/09/16 21:53 89 24 114/64 97 11/09/16 21:50 81 24 99 11/09/16 21:40 84 18 98 11/09/16 21:30 95 H 21 97 11/09/16 21:20 86 23 99 11/09/16 21:10 83 22 99 11/09/16 21:00 88 29 H 99 11/09/16 20:53 80 16 115/64 97 11/09/16 20:50 82 13 99 11/09/16 20:40 84 20 99 11/09/16 20:30 86 21 100 11/09/16 20:20 82 19 99 11/09/16 20:10 82 19 99 Intake and Output (Last 8hrs): Intake & Output 11/09/16 11/09/16 11/10/16 14:59 22:59 06:59 Intake Total 1514.1 1203.2 298.4 Output Total 1030 735 Balance 484.1 468.2 298.4 Weight 171 lb Intake: Intake, IV Amount 1304.1 1043.2 258.4 Left Forearm 10 Left Hand 10 Right Antecubital 264.1 243.2 58.4 Right Forearm 1020 800 200 Tube Feeding 210 160 40 Output: Urine 1030 535 Urethral ([place]) 1030 535 Stool 200 Other: # Bowel Movements 0 1 - Medications Active Medications: Active Medications Generic Name Dose Route Start Last Admin Trade Name Sanchoq PRN Reason Stop Dose Admin Acetaminophen 650 mg 11/09/16 16:28 11/09/16 16:53 Tylenol 650 Mg Supp HI 650 mg Q4 PRN Administration Fever >100.4 F Famotidine 20 mg 11/09/16 10:00 11/09/16 10:00 Pepcid IVP Not Given DAILY JO Folic Acid 1 mg 11/06/16 15:00 11/09/16 09:13 Folic Acid PO 1 mg DAILY JO Administration Heparin Sodium (Porcine) 5,000 units 11/06/16 22:00 11/09/16 22:25 Heparin SC 5,000 units Q8 JO Administration Piperacillin Sod/Tazobactam 100 mls @ 200 mls/hr 11/08/16 10:00 11/09/16 17: 10 Sod 3.375 gm/ Sodium Chloride IVPB 200 mls/hr Q8H JO Administration Sodium Chloride 1,000 mls @ 100 mls/hr 11/09/16 09:45 11/09/16 22:00 Sodium Chloride 0.9% IV 100 mls/hr .Q10H JO Administration Lorazepam 2 mg 11/08/16 09:17 11/09/16 12:04 Ativan IVP 2 mg Q4H PRN Administration Agitation Multivitamins 1 tab 11/06/16 15:00 11/09/16 09:13 Hexavitamin PO 1 tab DAILY JO Administration Propofol 100 mg 11/07/16 17:15 11/09/16 22:23 Diprivan IV 100 mg TITR JO Administration Thiamine HCl 100 mg 11/07/16 10:00 11/09/16 09:13 Vitamin B1 Inj IV 100 mg DAILY JO Administration - Patient Studies Lab Studies: Microbiology Studies 11/08/16 12:26 Blood Culture - Preliminary Blood-Venous NO GROWTH AFTER 24 HOURS 11/08/16 11:50 Blood Culture - Preliminary Blood-Venous NO GROWTH AFTER 24 HOURS 11/08/16 09:20 Urine Culture - Final Urine,[place] No Growth (<1,000 CFU/ML) 11/08/16 09:19 Gram Stain - Final Trachasp Sputum Culture - Final Yeast Species Lab Studies 11/09/16 11/09/16 11/09/16 Range/Units 06:27 06:27 05:08 WBC 9.4 (4.8-10.8) K/uL RBC 3.79 L (4.40-5.90) Mil/uL Hgb 10.6 L (12.0-18.0) g/dL Hct 32.6 L (35.0-51.0) % MCV 85.9 (80.0-94.0) fL MCH 28.0 (27.0-31.0) pg MCHC 32.6 L (33.0-37.0) g/dL RDW 15.5 H (11.5-14.5) % Plt Count 184 (130-400) K/uL MPV 9.7 (7.2-11.7) fL Neut % (Auto) 67.1 (50.0-75.0) % Lymph % (Auto) 16.0 L (20.0-40.0) % [place] % (Auto) 7.2 (0.0-10.0) % Eos % (Auto) 9.1 H (0.0-4.0) % Baso % (Auto) 0.6 (0.0-2.0) % Neut # 6.3 (1.8-7.0) K/uL Lymph # 1.5 (1.0-4.3) K/uL [place] # 0.7 (0.0-0.8) K/uL Eos # 0.9 H (0.0-0.7) K/uL Baso # 0.1 (0.0-0.2) K/uL Puncture Site R rad pCO2 42 (35-45) mm/Hg pO2 114 H (80-100) mm/Hg HCO3 25.2 (21-28) mmol/L ABG pH 7.39 (7.35-7.45) ABG Total CO2 26.7 (22-28) mmol/L ABG O2 Saturation 99.2 H (95-98) % ABG Base Excess 0.3 (-2.0-3.0) mmol/L ABG Hemoglobin 10.6 L (11.7-17.4) g/dL ABG Carboxyhemoglobin 1.4 (0.5-1.5) % POC ABG HHb (Measured) 0.8 (0.0-5.0) % ABG Methemoglobin 0.9 (0.0-3.0) % Law Test Pos A-a O2 Difference 190.0 mm/Hg Respiratory Index 1.7 Hgb O2 Saturation 96.9 (95.0-98.0) % Vent Mode Prvc Mechanical Rate 12 FiO2 50.0 % Tidal Volume 450 PEEP 5 Sodium 136 (132-148) mmol/L Potassium 3.0 L (3.6-5.2) mmol/L Chloride 104 (98-107) mmol/L Carbon Dioxide 22 (22-30) mmol/L Anion Gap 13 (10-20) BUN 8 L (9-20) mg/dL Creatinine 0.7 L (0.8-1.5) MG/DL Est GFR ( Amer) > 60 Est GFR (Non-Af Amer) > 60 Random Glucose 121 H (75-110) mg/dL Calcium 8.0 L (8.6-10.4) mg/dl Phosphorus 4.6 H (2.5-4.5) mg/dL Magnesium 2.4 H (1.6-2.3) mg/dL Total Bilirubin 0.8 (0.2-1.3) mg/dL AST 105 H (17-59) U/L ALT 76 H (21-72) U/L Alkaline Phosphatase 73 (38-126) U/L Total Protein 6.0 L (6.3-8.3) g/dL Albumin 3.1 L (3.5-5.0) g/dL Globulin 2.9 (2.2-3.9) gm/dL Albumin/Globulin Ratio 1.1 (1.0-2.1) Laboratory Results - last 24 hr 11/09/16 11/09/16 11/09/16 05:08 06:27 06:27 WBC 9.4 RBC 3.79 L Hgb 10.6 L Hct 32.6 L MCV 85.9 MCH 28.0 MCHC 32.6 L RDW 15.5 H Plt Count 184 MPV 9.7 Neut % (Auto) 67.1 Lymph % (Auto) 16.0 L [place] % (Auto) 7.2 Eos % (Auto) 9.1 H Baso % (Auto) 0.6 Neut # 6.3 Lymph # 1.5 [place] # 0.7 Eos # 0.9 H Baso # 0.1 Puncture Site R rad pCO2 42 pO2 114 H HCO3 25.2 ABG pH 7.39 ABG Total CO2 26.7 ABG O2 Saturation 99.2 H ABG Base Excess 0.3 ABG Hemoglobin 10.6 L ABG Carboxyhemoglobin 1.4 POC ABG HHb (Measured) 0.8 ABG Methemoglobin 0.9 Law Test Pos A-a O2 Difference 190.0 Respiratory Index 1.7 Hgb O2 Saturation 96.9 Vent Mode Prvc Mechanical Rate 12 FiO2 50.0 Tidal Volume 450 PEEP 5 Sodium 136 Potassium 3.0 L Chloride 104 Carbon Dioxide 22 Anion Gap 13 BUN 8 L Creatinine 0.7 L Est GFR ( Amer) > 60 Est GFR (Non-Af Amer) > 60 Random Glucose 121 H Calcium 8.0 L Phosphorus 4.6 H Magnesium 2.4 H Total Bilirubin 0.8 AST 105 H ALT 76 H Alkaline Phosphatase 73 Total Protein 6.0 L Albumin 3.1 L Globulin 2.9 Albumin/Globulin Ratio 1.1 Attending/Attestation - Attestation I have personally seen and examined this patient.: Yes I have fully participated in the care of the patient.: Yes I have reviewed all pertinent clinical information: Yes Notes (Text): Now new event, temp spike coming down post abx, source still not obvious, intubated for alcohol withdrawal, being assessed periodically off sedation currently on propofol and prn ativan. Patient was tremulous once off propfol will reassess daily. Extubatable as per respiratory status but maintained on vent for withdrawal.
[2016-11-10] MEDS: Piperacillin/Tazobact 3.375 GM in Sodium Chloride 100 ML IVPB SCH ×3 (01:00→17:37)
[2016-11-10] MEDS: Propofol 10 mg/ml Inj (100 ml) IV SCH ×3 (01:40→08:36)
[2016-11-10 06:13] LABS: ABG ALLEN TEST POS; ARTERIAL BLOOD GAS MODE PRVC; ARTERIAL BLOOD HGB O2 SAT 96.1 % (95.0-98.0); ATERIAL BLOOD GAS PEEP 5; CARBOXYHEMOGLOBIN 1.8 % (0.5-1.5); DRAW SITE R RAD; METHEMOGLOBIN 1.1 % (0.0-3.0)
[2016-11-10 06:18] LABS: ABG MECHANICAL RATE 12
[2016-11-10] MEDS: Sodium Chloride 0.9% 1,000 ML IV SCH ×3 (06:20→17:38)
[2016-11-10 06:41] LABS: BASO % 0.3 % (0.0-2.0); EOS # 0.2 K/uL (0.0-0.7); EOS % 2.9 % (0.0-4.0); HEMATOCRIT 32.1 % (35.0-51.0); LYMPH # 1.1 K/uL (1.0-4.3); LYMPH % 13.1 % (20.0-40.0); MEAN CELL VOLUME 85.4 fL (80.0-94.0); MEAN CORPUSCULAR HEMOGLOBIN 27.9 pg (27.0-31.0); MEAN CORPUSCULAR HGB CONC 32.7 g/dL (33.0-37.0); MEAN PLATELET VOLUME 9.7 fL (7.2-11.7); MONO # 0.6 K/uL (0.0-0.8); MONO % 7.7 % (0.0-10.0); RED CELL DISTRIBUTION WIDTH 15.6 % (11.5-14.5); WHITE BLOOD COUNT 8.3 K/uL (4.8-10.8)
[2016-11-10 07:02] LABS: CHLORIDE 105 mmol/L (98-107)
[2016-11-10 07:03] LABS: POTASSIUM 3.6 mmol/L (3.6-5.2); SODIUM 139 mmol/L (132-148)
[2016-11-10 07:05] LABS: ALB/GLOB RATIO 0.9 (1.0-2.1); AST/SGOT 71 U/L (17-59); BLOOD UREA NITROGEN 7 mg/dL (9-20); CARBON DIOXIDE 24 mmol/L (22-30); GFR AFRICAN-AMERICAN > 60
[2016-11-10 07:06] LABS: ALKALINE PHOSPHATASE 84 U/L (38-126); ALT/SGPT 69 U/L (21-72); CALCIUM 7.8 mg/dl (8.6-10.4); GLUCOSE,RANDOM 91 mg/dL (75-110); PHOSPHOROUS 3.6 mg/dL (2.5-4.5)
[2016-11-10] MEDS: Propofol 10 mg/ml 1,000 MG/100 ML VIAL IV PRN ×2 (08:35→12:26)
--- NOTE | 2016-11-10 09:40 | CP.PCM.PN ---
Subjective - Date & Time of Evaluation Date of Evaluation: 11/10/16 Time of Evaluation: 09:00 - Subjective Subjective: Patient was seen and examined by me. He remains intubated at this time on [facility] settings with propofol with sedation as well as PRN ativan for alcohol withdrawl. He was able to open his eyes and follow me when I called out his name. He was also moving his arms on exam His Tmax was 100.8 yesterday. So far blood cultures and urine culture negative 24hrs. He is on Zosyn at this moment. Objective - Vital Signs/Intake and Output Vital Signs (last 24 hours): Temp Pulse Resp BP Pulse Ox 98.4 F 79 18 126/74 98 11/10/16 08:00 11/10/16 09:10 11/10/16 09:10 11/10/16 08:53 11/10/16 09:10 Intake and Output: 11/10/16 11/10/16 06:59 18:59 Intake Total 1790.4 447.6 Output Total 840 188 Balance 950.4 259.6 - Medications Medications: Current Medications Acetaminophen (Tylenol 650 Mg Supp) 650 mg [place] Q4 PRN PRN Reason: Fever >100.4 F Last Admin: 11/09/16 16:53 Dose: 650 mg Famotidine (Pepcid) 20 mg IVP DAILY [facility] Last Admin: 11/09/16 10:00 Dose: Not Given Folic Acid (Folic Acid) 1 mg PO DAILY [facility] Last Admin: 11/09/16 09:13 Dose: 1 mg Heparin Sodium (Porcine) (Heparin) 5,000 units SC Q8 [facility] Last Admin: 11/10/16 06:15 Dose: 5,000 units Piperacillin Sod/Tazobactam (Sod 3.375 gm/ Sodium Chloride) 100 mls @ 200 mls/ hr IVPB Q8H [facility] Last Admin: 11/10/16 01:00 Dose: 200 mls/hr Sodium Chloride (Sodium Chloride 0.9%) 1,000 mls @ 100 mls/hr IV .Q10H [facility] Last Admin: 11/10/16 06:20 Dose: 100 mls/hr Potassium Chloride (Potassium Chloride 20 Meq/100 Ml) 20 meq in 100 mls @ 50 mls/hr IVPB Q2H [facility] Stop: 11/10/16 13:29 Propofol (Diprivan) 1,000 mg in 100 mls @ 2.327 mls/hr IV .Q24H PRN; Protocol; 5 MCG/KG/MIN PRN Reason: TITRATE PER MD ORDER Lorazepam (Ativan) 2 mg IVP Q4H PRN PRN Reason: Agitation Last Admin: 11/09/16 12:04 Dose: 2 mg Multivitamins (Hexavitamin) 1 tab PO DAILY [facility] Last Admin: 11/09/16 09:13 Dose: 1 tab Thiamine HCl (Vitamin B1 Inj) 100 mg IV DAILY JO Last Admin: 11/09/16 09:13 Dose: 100 mg - Labs Labs: 11/10/16 06:25 11/10/16 06:26 PT 13.3 SECONDS (9.7-12.2) H 11/06/16 15:19 INR 1.2 11/06/16 15:19 APTT 30 SECONDS (21-34) 11/06/16 15:19 - Constitutional Appears: Unkempt, Cachectic, Chronically Ill - ENT Exam ENT Exam: Mucous Membranes Moist - Respiratory Exam Additional comments: Intubated, mechanical breath sounds - Cardiovascular Exam Cardiovascular Exam: REGULAR RHYTHM - GI/Abdominal Exam GI & Abdominal Exam: Soft. absent: Guarding, Rigid, Tenderness - Neurological Exam Neurological Exam: Altered, Awake - Skin Skin Exam: Pallor, Pallor, Warm Assessment and Plan - Assessment and Plan (Free Text) Assessment: Assessment & Plan (1) Alcohol withdrawal/Delirium Tremors Assessment and Plan: 11/10: Remains intubated with propofol and ativan PRN, hopefully can be weaned off ventilator if the withdrawl symptoms become more stable when off propofol. 11/09: Remains intubated at this time. AST and ALT are both down trending. 11/08: Patient required intubation yesterday after noon. Currently on propofol as well as ativan 11/07: Patient currently on Precedex ggt. Also reciving ativan IV. - Thiamine 100mg IV daily - Multivitamin PO daily - Folic Acid 1mg PO daily - Ativan 2mg IV Q6 [facility] - Ativan 4mg IV Q2 PRN (hold if lethargic) - Keep NPO - Monitor vital signs - Monitor for signs of DTs (2) Fevers 11/10: So far blood and urine cultures negative 24hrs. On Zosyn. continue to monitor. (2) Dyspnea on exertion Assessment and Plan: 11/09: Echo has now returned, EF 45%, borderline LVH reported 11/07: Now intubated 11/06: CXRAY pending, did not appear to be fluid overload or pulmonary congestion , pending 2D echo at this time (3) Prophylactic measure Assessment and Plan: DVT: Heparin 5,000 units SC, SCDs GI: Pepcid 20mg PO daily
--- NOTE | 2016-11-10 09:52 | RAD ---
HISTORY: intubated COMPARISON: 11/09/2016 FINDINGS: LUNGS: Elevated right hemidiaphragm. Likely due to almost complete atelectasis of the middle lobe with associated downward positioning of minor fissure. PLEURA: As above. No left pleural effusion. No pneumothorax. CARDIOVASCULAR: Normal heart size. ET tube and NG tube unchanged. OSSEOUS STRUCTURES: No significant abnormalities. VISUALIZED UPPER ABDOMEN: Normal. OTHER FINDINGS: None. IMPRESSION: New elevation of right hemidiaphragm. Likely atelectasis right middle lobe. Otherwise no significant change.
[2016-11-10] MEDS: Thiamine 100 mg/ml Inj IV SCH (10:07)
[2016-11-10] MEDS: Multiple Vitamins Tab PO SCH (10:13)
--- NOTE | 2016-11-10 13:45 | CP.CCUPN ---
<Mackenzie Rodrigues - Last Filed: 11/10/16 13:43> CCU Subjective - Physician Review Subjective (Free Text): Patient was seen and examined at bedside. Patient is intubated and sedated. Unable to obtain review of systems. 11/10/16 13:43 CCU Objective - Vital Signs / Intake & Output Intake and Output (Last 8hrs): Intake & Output 11/09/16 11/10/16 11/10/16 22:59 06:59 14:59 Intake Total 1203.2 1193.6 547.6 Output Total 920 455 188 Balance 283.2 738.6 359.6 Intake: IV 100 Intake, IV Amount 1043.2 1033.6 387.6 Right Antecubital 243.2 233.6 87.6 Right Forearm 800 800 300 Tube Feeding 160 160 60 Output: Urine 720 355 188 Urethral ([place]) 720 355 188 Stool 200 100 Other: # Bowel Movements 1 1 - Physical Exam Head: Positive for: Atraumatic, Normocephalic Extroacular Muscles: Positive for: EOMI Mouth: Positive for: Dry, Other (intubated) Respiratory/Chest: Positive for: Other (hypoxic). Negative for: Good Air Exchange, Rales, Rhonchi, Tachypneic Cardiovascular: Positive for: Regular Rate and Rhythm, Normal S1, S2. Negative for: Tachycardic, Bradycardic Abdomen: Positive for: Distention, Normal Bowel Sounds. Negative for: Tenderness Upper Extremity: Positive for: Normal Inspection. Negative for: Edema Lower Extremity: Positive for: Normal Inspection, NORMAL PULSES. Negative for: Edema Neurological: Positive for: Other (tremors) Skin: Positive for: Warm, Dry, Normal Color. Negative for: Diaphoretic Psychiatric: Positive for: Alert. Negative for: Oriented x 3, Normal Affect, Normal Mood - Medications Active Medications: Active Medications Generic Name Dose Route Start Last Admin Trade Name Freq PRN Reason Stop Dose Admin Acetaminophen 650 mg 11/09/16 16:28 11/09/16 16:53 Tylenol 650 Mg Supp MT 650 mg Q4 PRN Administration Fever >100.4 F Famotidine 20 mg 11/09/16 10:00 11/10/16 10:04 Pepcid IVP 20 mg DAILY JO Administration Folic Acid 1 mg 11/06/16 15:00 11/10/16 10:13 Folic Acid PO 1 mg DAILY JO Administration Heparin Sodium (Porcine) 5,000 units 11/06/16 22:00 11/10/16 06:15 Heparin SC 5,000 units Q8 JO Administration Piperacillin Sod/Tazobactam 100 mls @ 200 mls/hr 11/08/16 10:00 11/10/16 09: 52 Sod 3.375 gm/ Sodium Chloride IVPB 200 mls/hr Q8H JO Administration Sodium Chloride 1,000 mls @ 100 mls/hr 11/09/16 09:45 11/10/16 06:20 Sodium Chloride 0.9% IV 100 mls/hr .Q10H JO Administration Propofol 1,000 mg in 100 mls @ 2.327 mls/hr 11/10/16 09:26 11/10/16 12:26 Diprivan IV 40 mcg/kg/min .Q24H PRN 18.615 mls/hr TITRATE PER MD ORDER Administration Protocol 5 MCG/KG/MIN Lorazepam 2 mg 11/08/16 09:17 11/10/16 10:00 Ativan IVP 2 mg Q4H PRN Administration Agitation Multivitamins 1 tab 11/06/16 15:00 11/10/16 10:13 Hexavitamin PO 1 tab DAILY JO Administration Thiamine HCl 100 mg 11/07/16 10:00 11/10/16 10:07 Vitamin B1 Inj IV 100 mg DAILY JO Administration - Patient Studies Lab Studies: Microbiology Studies 11/08/16 12:26 Blood Culture - Preliminary Blood-Venous NO GROWTH AFTER 48 HOURS 11/08/16 11:50 Blood Culture - Preliminary Blood-Venous NO GROWTH AFTER 48 HOURS 11/08/16 09:20 Urine Culture - Final Urine,[place] No Growth (<1,000 CFU/ML) 11/08/16 09:19 Gram Stain - Final Trachasp Sputum Culture - Final Yeast Species Lab Studies 11/10/16 11/10/16 11/10/16 Range/Units 06:26 06:25 05:18 WBC 8.3 (4.8-10.8) K/uL RBC 3.76 L (4.40-5.90) Mil/uL Hgb 10.5 L (12.0-18.0) g/dL Hct 32.1 L (35.0-51.0) % MCV 85.4 (80.0-94.0) fL MCH 27.9 (27.0-31.0) pg MCHC 32.7 L (33.0-37.0) g/dL RDW 15.6 H (11.5-14.5) % Plt Count 201 (130-400) K/uL MPV 9.7 (7.2-11.7) fL Neut % (Auto) 76.0 H (50.0-75.0) % Lymph % (Auto) 13.1 L (20.0-40.0) % [place] % (Auto) 7.7 (0.0-10.0) % Eos % (Auto) 2.9 (0.0-4.0) % Baso % (Auto) 0.3 (0.0-2.0) % Neut # 6.3 (1.8-7.0) K/uL Lymph # 1.1 (1.0-4.3) K/uL [place] # 0.6 (0.0-0.8) K/uL Eos # 0.2 (0.0-0.7) K/uL Baso # 0.0 (0.0-0.2) K/uL Puncture Site R rad pCO2 39 (35-45) mm/Hg pO2 98 (80-100) mm/Hg HCO3 30.2 H (21-28) mmol/L ABG pH 7.50 H (7.35-7.45) ABG Total CO2 31.6 H (22-28) mmol/L ABG O2 Saturation 99.0 H (95-98) % ABG Base Excess 6.7 H (-2.0-3.0) mmol/L ABG Hemoglobin 8.8 L (11.7-17.4) g/dL ABG Carboxyhemoglobin 1.8 H (0.5-1.5) % POC ABG HHb (Measured) 1.0 (0.0-5.0) % ABG Methemoglobin 1.1 (0.0-3.0) % Law Test Pos A-a O2 Difference 210.0 mm/Hg Respiratory Index 2.1 Hgb O2 Saturation 96.1 (95.0-98.0) % Vent Mode Prvc Mechanical Rate 12 FiO2 50.0 % Tidal Volume 450 PEEP 5 Sodium 139 (132-148) mmol/L Potassium 3.6 (3.6-5.2) mmol/L Chloride 105 (98-107) mmol/L Carbon Dioxide 24 (22-30) mmol/L Anion Gap 13 (10-20) BUN 7 L (9-20) mg/dL Creatinine 0.6 L (0.8-1.5) MG/DL Est GFR ( Amer) > 60 Est GFR (Non-Af Amer) > 60 Random Glucose 91 (75-110) mg/dL Calcium 7.8 L (8.6-10.4) mg/dl Phosphorus 3.6 (2.5-4.5) mg/dL Magnesium 2.0 (1.6-2.3) mg/dL Total Bilirubin 1.0 (0.2-1.3) mg/dL AST 71 H D (17-59) U/L ALT 69 (21-72) U/L Alkaline Phosphatase 84 (38-126) U/L Total Protein 6.0 L (6.3-8.3) g/dL Albumin 2.8 L (3.5-5.0) g/dL Globulin 3.2 (2.2-3.9) gm/dL Albumin/Globulin Ratio 0.9 L (1.0-2.1) Laboratory Results - last 24 hr 11/10/16 11/10/16 11/10/16 05:18 06:25 06:26 WBC 8.3 RBC 3.76 L Hgb 10.5 L Hct 32.1 L MCV 85.4 MCH 27.9 MCHC 32.7 L RDW 15.6 H Plt Count 201 MPV 9.7 Neut % (Auto) 76.0 H Lymph % (Auto) 13.1 L [place] % (Auto) 7.7 Eos % (Auto) 2.9 Baso % (Auto) 0.3 Neut # 6.3 Lymph # 1.1 [place] # 0.6 Eos # 0.2 Baso # 0.0 Puncture Site R rad pCO2 39 pO2 98 HCO3 30.2 H ABG pH 7.50 H ABG Total CO2 31.6 H ABG O2 Saturation 99.0 H ABG Base Excess 6.7 H ABG Hemoglobin 8.8 L ABG Carboxyhemoglobin 1.8 H POC ABG HHb (Measured) 1.0 ABG Methemoglobin 1.1 Law Test Pos A-a O2 Difference 210.0 Respiratory Index 2.1 Hgb O2 Saturation 96.1 Vent Mode Prvc Mechanical Rate 12 FiO2 50.0 Tidal Volume 450 PEEP 5 Sodium 139 Potassium 3.6 Chloride 105 Carbon Dioxide 24 Anion Gap 13 BUN 7 L Creatinine 0.6 L Est GFR ( Amer) > 60 Est GFR (Non-Af Amer) > 60 Random Glucose 91 Calcium 7.8 L Phosphorus 3.6 Magnesium 2.0 Total Bilirubin 1.0 AST 71 H D ALT 69 Alkaline Phosphatase 84 Total Protein 6.0 L Albumin 2.8 L Globulin 3.2 Albumin/Globulin Ratio 0.9 L Review of Systems - Review of Systems Systems not reviewed;Unavailable: Intubated Critical Care Progress Note - Vent Settings TIDAL VOLUME:: 450 RESP RATE:: 12 FIO2:: 50 PEEP:: 5 Assessment/Plan (1) Alcohol withdrawal Assessment and plan: 61 year old male with no past medical history, presents to the ED with complaints of tremors that began this morning. Patient was admitted to ICU for monitoring for possible DTs. He has a history of drinking 5-8 24oz. beers daily for many years. His last drink was yesterday afternoon. Patient reports feeling hand tremors, nausea, and sometimes short of breath. As per his , patient has difficulty walking more than 2-4 steps without becoming short of breath. Patient reports having fallen in the past, but is not sure if he has fallen recently. Patient is oriented and has no hallucinations. Patient denies having chest pain, abdominal pain, leg pain, vomiting, fevers, and dizziness. Patient was intubated on 11/07/16 due to increasing agitation, dyspnea, hypoxia, and altered mental status. Tapering diprivan drip (11/09/16). Continue to monitor. Neuro: alert, sedated - Diprivan drip- tapering down Pulm: Intubated (hypoxic, ams) - Patient was intubated 11/07/16 due to increasing agitation, hallucinations, dyspnea, hypoxia, and ams. - Hx of dyspnea on exertion - CXR (11/09/16): limited medial right basilar atelectasis; linear atelectasis at left base medially - CXR (11/09/16): new elevation of right hemidiaphragm; likely atelectasis right middle lobe; otherwise no change. CV: Hypertensive, likely secondary to tremors and alcohol withdrawal - Echo: EF59%; borderline concentric LVH; grade-I abnormal relaxation; aortic valve mildly-mod sclerotic - Monitor vitals Endo: no acute issues GI: - Tube feeding, Pulmicort Heme: no acute issues Renal: - Hypokalemia: gave KCl ID: - Febrile - Continue Zosyn 3.375gm IV Q8 - Sputum/trachasp cx: + yeast species - Blood cx: no growth x48hrs - Urine cx: no growth Withdrawal: - D5/NS @100ml/hr - Thiamine 100mg IV daily - Multivitamin PO daily - Folic Acid 1mg PO daily - Continue Ativan 2mg IV Q4 PRN - Continue Diprivan Drip-- tapering down - Monitor vital signs - Monitor for signs of DTs Prophylaxis: - DVT: Heparin 5,000 units SC, SCDs - GI: Pepcid 20mg PO daily Current Visit: Yes Status: Acute <Buddy Nettles - Last Filed: 11/10/16 14:24> CCU Subjective - Physician Review Events Since Last Encounter (Free Text): CCM Intubated, sedated, responsive Perrl Neck- no jvd lungs- bilat bs Heart-rr aBd- benign eXt- no edema Neuro- moves all ext Labs,[id number] A&P DTs- Improving Resp Failure r/o Aspiration ETOH Abuse /Dependence HTN taper propofol SBT ativan prn cont meds /mvi /thiamine/folic acid maintain optimal lytes d/c prateek 11/10/16 14:20 11/10/16 14:23 CCU Objective - Vital Signs / Intake & Output Vital Signs (Last 4 hours): Vital Signs Pulse Resp BP Pulse Ox 11/10/16 14:10 94 H 11 L 98 11/10/16 14:00 83 18 99 11/10/16 13:53 82 19 110/65 97 11/10/16 13:50 80 12 99 11/10/16 13:40 80 19 99 11/10/16 13:30 82 18 99 11/10/16 13:20 83 23 99 11/10/16 13:10 82 20 99 11/10/16 13:00 83 19 110/51 L 99 11/10/16 12:53 76 18 110/51 L 100 11/10/16 12:50 81 18 100 11/10/16 12:40 77 17 100 11/10/16 12:30 77 16 99 11/10/16 12:20 80 19 99 11/10/16 12:10 81 18 99 11/10/16 12:00 83 19 99 11/10/16 11:53 79 21 110/56 L 98 11/10/16 11:50 77 17 99 11/10/16 11:40 76 18 98 11/10/16 11:30 74 17 98 11/10/16 11:20 74 16 99 11/10/16 11:10 74 15 100 11/10/16 11:00 85 21 100 11/10/16 10:53 78 20 108/49 L 11/10/16 10:50 83 20 99 11/10/16 10:40 84 26 H 99 11/10/16 10:30 76 18 98 Intake and Output (Last 8hrs): Intake & Output 11/09/16 11/10/16 11/10/16 22:59 06:59 14:59 Intake Total 1203.2 1193.6 547.6 Output Total 920 455 188 Balance 283.2 738.6 359.6 Intake: IV 100 Intake, IV Amount 1043.2 1033.6 387.6 Right Antecubital 243.2 233.6 87.6 Right Forearm 800 800 300 Tube Feeding 160 160 60 Output: Urine 720 355 188 Urethral ([place]) 720 355 188 Stool 200 100 Other: # Bowel Movements 1 1 - Medications Active Medications: Active Medications Generic Name Dose Route Start Last Admin Trade Name Freq PRN Reason Stop Dose Admin Acetaminophen 650 mg 11/09/16 16:28 11/09/16 16:53 Tylenol 650 Mg Supp MT 650 mg Q4 PRN Administration Fever >100.4 F Famotidine 20 mg 11/09/16 10:00 11/10/16 10:04 Pepcid IVP 20 mg DAILY JO Administration Folic Acid 1 mg 11/06/16 15:00 11/10/16 10:13 Folic Acid PO 1 mg DAILY JO Administration Heparin Sodium (Porcine) 5,000 units 11/06/16 22:00 11/10/16 06:15 Heparin SC 5,000 units Q8 JO Administration Piperacillin Sod/Tazobactam 100 mls @ 200 mls/hr 11/08/16 10:00 11/10/16 09: 52 Sod 3.375 gm/ Sodium Chloride IVPB 200 mls/hr Q8H JO Administration Sodium Chloride 1,000 mls @ 100 mls/hr 11/09/16 09:45 11/10/16 06:20 Sodium Chloride 0.9% IV 100 mls/hr .Q10H JO Administration Propofol 1,000 mg in 100 mls @ 2.327 mls/hr 11/10/16 09:26 11/10/16 12:26 Diprivan IV 40 mcg/kg/min .Q24H PRN 18.615 mls/hr TITRATE PER MD ORDER Administration Protocol 5 MCG/KG/MIN Lorazepam 2 mg 11/08/16 09:17 11/10/16 10:00 Ativan IVP 2 mg Q4H PRN Administration Agitation Multivitamins 1 tab 11/06/16 15:00 11/10/16 10:13 Hexavitamin PO 1 tab DAILY JO Administration Thiamine HCl 100 mg 11/07/16 10:00 11/10/16 10:07 Vitamin B1 Inj IV 100 mg DAILY JO Administration - Patient Studies Lab Studies: Microbiology Studies 11/08/16 12:26 Blood Culture - Preliminary Blood-Venous NO GROWTH AFTER 48 HOURS 11/08/16 11:50 Blood Culture - Preliminary Blood-Venous NO GROWTH AFTER 48 HOURS 11/08/16 09:20 Urine Culture - Final Urine,[place] No Growth (<1,000 CFU/ML) 11/08/16 09:19 Gram Stain - Final Trachasp Sputum Culture - Final Yeast Species Lab Studies 11/10/16 11/10/16 11/10/16 Range/Units 06:26 06:25 05:18 WBC 8.3 (4.8-10.8) K/uL RBC 3.76 L (4.40-5.90) Mil/uL Hgb 10.5 L (12.0-18.0) g/dL Hct 32.1 L (35.0-51.0) % MCV 85.4 (80.0-94.0) fL MCH 27.9 (27.0-31.0) pg MCHC 32.7 L (33.0-37.0) g/dL RDW 15.6 H (11.5-14.5) % Plt Count 201 (130-400) K/uL MPV 9.7 (7.2-11.7) fL Neut % (Auto) 76.0 H (50.0-75.0) % Lymph % (Auto) 13.1 L (20.0-40.0) % [place] % (Auto) 7.7 (0.0-10.0) % Eos % (Auto) 2.9 (0.0-4.0) % Baso % (Auto) 0.3 (0.0-2.0) % Neut # 6.3 (1.8-7.0) K/uL Lymph # 1.1 (1.0-4.3) K/uL [place] # 0.6 (0.0-0.8) K/uL Eos # 0.2 (0.0-0.7) K/uL Baso # 0.0 (0.0-0.2) K/uL Puncture Site R rad pCO2 39 (35-45) mm/Hg pO2 98 (80-100) mm/Hg HCO3 30.2 H (21-28) mmol/L ABG pH 7.50 H (7.35-7.45) ABG Total CO2 31.6 H (22-28) mmol/L ABG O2 Saturation 99.0 H (95-98) % ABG Base Excess 6.7 H (-2.0-3.0) mmol/L ABG Hemoglobin 8.8 L (11.7-17.4) g/dL ABG Carboxyhemoglobin 1.8 H (0.5-1.5) % POC ABG HHb (Measured) 1.0 (0.0-5.0) % ABG Methemoglobin 1.1 (0.0-3.0) % Law Test Pos A-a O2 Difference 210.0 mm/Hg Respiratory Index 2.1 Hgb O2 Saturation 96.1 (95.0-98.0) % Vent Mode Prvc Mechanical Rate 12 FiO2 50.0 % Tidal Volume 450 PEEP 5 Sodium 139 (132-148) mmol/L Potassium 3.6 (3.6-5.2) mmol/L Chloride 105 (98-107) mmol/L Carbon Dioxide 24 (22-30) mmol/L Anion Gap 13 (10-20) BUN 7 L (9-20) mg/dL Creatinine 0.6 L (0.8-1.5) MG/DL Est GFR ( Amer) > 60 Est GFR (Non-Af Amer) > 60 Random Glucose 91 (75-110) mg/dL Calcium 7.8 L (8.6-10.4) mg/dl Phosphorus 3.6 (2.5-4.5) mg/dL Magnesium 2.0 (1.6-2.3) mg/dL Total Bilirubin 1.0 (0.2-1.3) mg/dL AST 71 H D (17-59) U/L ALT 69 (21-72) U/L Alkaline Phosphatase 84 (38-126) U/L Total Protein 6.0 L (6.3-8.3) g/dL Albumin 2.8 L (3.5-5.0) g/dL Globulin 3.2 (2.2-3.9) gm/dL Albumin/Globulin Ratio 0.9 L (1.0-2.1) Laboratory Results - last 24 hr 11/10/16 11/10/16 11/10/16 05:18 06:25 06:26 WBC 8.3 RBC 3.76 L Hgb 10.5 L Hct 32.1 L MCV 85.4 MCH 27.9 MCHC 32.7 L RDW 15.6 H Plt Count 201 MPV 9.7 Neut % (Auto) 76.0 H Lymph % (Auto) 13.1 L [place] % (Auto) 7.7 Eos % (Auto) 2.9 Baso % (Auto) 0.3 Neut # 6.3 Lymph # 1.1 [place] # 0.6 Eos # 0.2 Baso # 0.0 Puncture Site R rad pCO2 39 pO2 98 HCO3 30.2 H ABG pH 7.50 H ABG Total CO2 31.6 H ABG O2 Saturation 99.0 H ABG Base Excess 6.7 H ABG Hemoglobin 8.8 L ABG Carboxyhemoglobin 1.8 H POC ABG HHb (Measured) 1.0 ABG Methemoglobin 1.1 Law Test Pos A-a O2 Difference 210.0 Respiratory Index 2.1 Hgb O2 Saturation 96.1 Vent Mode Prvc Mechanical Rate 12 FiO2 50.0 Tidal Volume 450 PEEP 5 Sodium 139 Potassium 3.6 Chloride 105 Carbon Dioxide 24 Anion Gap 13 BUN 7 L Creatinine 0.6 L Est GFR ( Amer) > 60 Est GFR (Non-Af Amer) > 60 Random Glucose 91 Calcium 7.8 L Phosphorus 3.6 Magnesium 2.0 Total Bilirubin 1.0 AST 71 H D ALT 69 Alkaline Phosphatase 84 Total Protein 6.0 L Albumin 2.8 L Globulin 3.2 Albumin/Globulin Ratio 0.9 L
[2016-11-10] MEDS: Dexmedetomidine Hydrochloride 200 MCG in Sodium Chloride 0.9% 48 ML IV PRN (16:41)
--- NOTE | 2016-11-10 23:21 | CP.PCM.PCO ---
Physician Communication Note - Physician Communication Note Physician Communication Note: Patient self extubated himself at 9PM. Tolerating NC 5L/m and sating well.
[2016-11-11] MEDS: Piperacillin/Tazobact 3.375 GM in Sodium Chloride 100 ML IVPB SCH ×3 (01:00→18:56)
[2016-11-11] MEDS: Sodium Chloride 0.9% 1,000 ML IV SCH (02:00)
[2016-11-11] MEDS: Dexmedetomidine Hydrochloride 200 MCG in Sodium Chloride 0.9% 48 ML IV PRN ×3 (02:14→11:06)
[2016-11-11 05:59] LABS: ABG ALLEN TEST POS; ARTERIAL BLOOD HGB O2 SAT 96.1 % (95.0-98.0); CARBOXYHEMOGLOBIN 1.4 % (0.5-1.5); DRAW SITE RR; HHB 1.3 % (0.0-5.0); METHEMOGLOBIN 1.1 % (0.0-3.0)
[2016-11-11 06:28] LABS: BASO # 0.1 K/uL (0.0-0.2); BASO % 0.8 % (0.0-2.0); EOS # 0.4 K/uL (0.0-0.7); HEMATOCRIT 33.2 % (35.0-51.0); LYMPH # 1.2 K/uL (1.0-4.3); LYMPH % 12.6 % (20.0-40.0); MEAN CELL VOLUME 84.9 fL (80.0-94.0); MEAN CORPUSCULAR HEMOGLOBIN 27.5 pg (27.0-31.0); MEAN CORPUSCULAR HGB CONC 32.4 g/dL (33.0-37.0); MEAN PLATELET VOLUME 9.2 fL (7.2-11.7); MONO # 0.8 K/uL (0.0-0.8); MONO % 7.9 % (0.0-10.0); RED CELL DISTRIBUTION WIDTH 15.5 % (11.5-14.5); WHITE BLOOD COUNT 9.7 K/uL (4.8-10.8)
[2016-11-11 06:48] LABS: POTASSIUM 3.7 mmol/L (3.6-5.2); SODIUM 140 mmol/L (132-148)
[2016-11-11 06:50] LABS: BILIRUBIN,TOTAL 1.2 mg/dL (0.2-1.3); CARBON DIOXIDE 23 mmol/L (22-30); GFR AFRICAN-AMERICAN > 60
[2016-11-11 06:51] LABS: ALB/GLOB RATIO 0.9 (1.0-2.1); ALKALINE PHOSPHATASE 88 U/L (38-126); ALT/SGPT 63 U/L (21-72); AST/SGOT 55 U/L (17-59); BLOOD UREA NITROGEN 7 mg/dL (9-20); CALCIUM 8.5 mg/dl (8.6-10.4); GLUCOSE,RANDOM 88 mg/dL (75-110); MAGNESIUM 1.8 mg/dL (1.6-2.3); PHOSPHOROUS 3.6 mg/dL (2.5-4.5); TOTAL PROTEIN 6.7 g/dL (6.3-8.3)
[2016-11-11 06:53] LABS: CHLORIDE 102 mmol/L (98-107)
[2016-11-11] MEDS ORDERED: Sodium Chloride 0.9% 1,000 ML IV SCH (09:07)
[2016-11-11] MEDS: Multiple Vitamins Tab PO SCH (10:35)
[2016-11-11] MEDS: Thiamine 100 mg/ml Inj IV SCH (10:44)
[2016-11-11] MEDS: Magnesium Sulfate 1 gm in D5W 1 GM/100 ML BAG IVPB SCH ×2 (10:56→11:30)
--- NOTE | 2016-11-11 12:43 | CP.PCM.PN ---
Subjective - Date & Time of Evaluation Date of Evaluation: 11/11/16 Time of Evaluation: 12:00 - Subjective Subjective: Patient self extubated himself last night. He is not in any shortness of breath at this time. He also denied chest pain, and denied abdominal pain. Family present at bedside Tmax yesterday was 100.7, the blood cultures for past 24 hr negative He might be able to be transferred out of ICU soon. Objective - Vital Signs/Intake and Output Vital Signs (last 24 hours): Temp Pulse Resp BP Pulse Ox 99.0 F 93 H 19 139/74 83 L 11/11/16 08:00 11/11/16 11:53 11/11/16 11:53 11/11/16 11:53 11/11/16 11:53 Intake and Output: 11/11/16 11/11/16 06:59 18:59 Intake Total 1129.6 585.3 Output Total 650 400 Balance 479.6 185.3 - Medications Medications: Current Medications Acetaminophen (Tylenol 650 Mg Supp) 650 mg [place] Q4 PRN PRN Reason: Fever >100.4 F Last Admin: 11/09/16 16:53 Dose: 650 mg Albuterol/Ipratropium (Duoneb 3 Mg/0.5 Mg (3 Ml) Ud) 3 ml INH RQ6 [facility] Chlordiazepoxide (Librium) 5 mg PO BID [facility] Stop: 11/13/16 10:01 Last Admin: 11/11/16 10:35 Dose: 5 mg Famotidine (Pepcid) 20 mg IVP DAILY [facility] Last Admin: 11/11/16 10:44 Dose: 20 mg Folic Acid (Folic Acid) 1 mg PO DAILY [facility] Last Admin: 11/11/16 10:35 Dose: 1 mg Heparin Sodium (Porcine) (Heparin) 5,000 units SC Q8 [facility] Last Admin: 11/11/16 06:15 Dose: 5,000 units Piperacillin Sod/Tazobactam (Sod 3.375 gm/ Sodium Chloride) 100 mls @ 200 mls/ hr IVPB Q8H [facility] Last Admin: 11/11/16 12:15 Dose: 200 mls/hr Dexmedetomidine HCl 200 mcg/ (Sodium Chloride) 50 mls @ 8.45 mls/hr IV TITR PRN ; Protocol; 0.4 MCG/KG/HR PRN Reason: Agitation Last Admin: 11/11/16 11:06 Dose: 0.4 mcg/kg/hr, 8.45 mls/hr Sodium Chloride (Sodium Chloride 0.9%) 1,000 mls @ 50 mls/hr IV .Q20H [facility] Last Admin: 11/11/16 11:26 Dose: Not Given Potassium Chloride (Potassium Chloride 20 Meq/100 Ml) 20 meq in 100 mls @ 50 mls/hr IVPB ONCE ONE Stop: 11/11/16 12:59 Last Admin: 11/11/16 10:52 Dose: 50 mls/hr Labetalol HCl (Trandate) 100 mg PO BID [facility] Last Admin: 11/11/16 10:42 Dose: 100 mg Lorazepam (Ativan) 2 mg IVP Q4H PRN PRN Reason: Agitation Last Admin: 11/10/16 15:45 Dose: 2 mg Multivitamins (Hexavitamin) 1 tab PO DAILY [facility] Last Admin: 11/11/16 10:35 Dose: 1 tab Thiamine HCl (Vitamin B1 Inj) 100 mg IV DAILY [facility] Last Admin: 11/11/16 10:44 Dose: 100 mg - Labs Labs: 11/11/16 06:20 11/11/16 06:20 PT 13.3 SECONDS (9.7-12.2) H 11/06/16 15:19 INR 1.2 11/06/16 15:19 APTT 30 SECONDS (21-34) 11/06/16 15:19 - Constitutional Appears: No Acute Distress, Unkempt, Cachectic, Chronically Ill - Head Exam Head Exam: NORMAL INSPECTION - Eye Exam Eye Exam: EOMI, Normal appearance - ENT Exam ENT Exam: Mucous Membranes Moist - Respiratory Exam Respiratory Exam: Clear to Ausculation Bilateral, NORMAL BREATHING PATTERN - Cardiovascular Exam Cardiovascular Exam: REGULAR RHYTHM - GI/Abdominal Exam GI & Abdominal Exam: Soft, Normal Bowel Sounds. absent: Distended, Firm, Guarding, Rigid, Tenderness - Neurological Exam Neurological Exam: Alert, Awake, Oriented x3 Neuro motor strength exam: Left Upper Extremity: 5, Right Upper Extremity: 5 - Skin Skin Exam: Normal Color, Warm Assessment and Plan - Assessment and Plan (Free Text) Assessment: Assessment & Plan (1) Alcohol withdrawal/Delirium Tremors Assessment and Plan: 11/11: Self extubated last night. Currently on Librium PO and propofol 11/10: Remains intubated with propofol and ativan PRN, hopefully can be weaned off ventilator if the withdrawl symptoms become more stable when off propofol. 11/09: Remains intubated at this time. AST and ALT are both down trending. 11/08: Patient required intubation yesterday after noon. Currently on propofol as well as ativan 11/07: Patient currently on Precedex ggt. Also reciving ativan IV. - Thiamine 100mg IV daily - Multivitamin PO daily - Folic Acid 1mg PO daily - Ativan 2mg IV Q6 poncho - Ativan 4mg IV Q2 PRN (hold if lethargic) - Keep NPO - Monitor vital signs - Monitor for signs of DTs (2) Fevers 11/09: Yesterday Tmax 100.4 11/10: So far blood and urine cultures negative 24hrs. On Zosyn. continue to monitor. (2) Dyspnea on exertion Assessment and Plan: 11/09: Echo has now returned, EF 45%, borderline LVH reported 11/07: Now intubated 11/06: CXRAY pending, did not appear to be fluid overload or pulmonary congestion , pending 2D echo at this time (3) Prophylactic measure Assessment and Plan: DVT: Heparin 5,000 units SC, SCDs GI: Pepcid 20mg PO daily
--- NOTE | 2016-11-11 17:43 | CP.CCUPN ---
CCU Subjective - Physician Review Events Since Last Encounter (Free Text): 11/11/16 17:43 Patient got self extubated last night. Today patient is more awake and responding. He is not any distress. Mild shaking noted. No chest pain. Minimally elevated blood pressure noted On examination: Vital signs stable. Chest good air entry bilaterally regular heart sound nontender abdomen edema negative Chest x-ray nonspecific. Assessment and recommendation: 61-year-old male admitted with the DVTs, respiratory failure on ventilator. Currently extubated. Doing well. We'll continue to monitor the DVTs. On Librium, Ativan as needed, patient is okay currently, if he does well we'll transfer the patient tomorrow CCU Objective - Vital Signs / Intake & Output Vital Signs (Last 4 hours): Vital Signs Temp Pulse Resp BP Pulse Ox 11/11/16 17:00 99 H 29 H 99 11/11/16 16:56 99 H 16 179/91 H 98 11/11/16 16:53 95 H 24 188/95 H 96 11/11/16 16:50 111 H 25 H 99 11/11/16 16:40 91 H 24 100 11/11/16 16:30 92 H 29 H 100 11/11/16 16:20 92 H 28 H 99 11/11/16 16:10 91 H 26 H 100 11/11/16 16:00 98.3 F 95 H 28 H 99 11/11/16 15:53 94 H 29 H 172/90 H 98 11/11/16 15:50 93 H 26 H 100 11/11/16 15:40 91 H 25 H 100 11/11/16 15:30 92 H 28 H 100 11/11/16 15:20 94 H 99 11/11/16 15:18 100 H 98 11/11/16 15:00 97 H 23 99 11/11/16 14:53 92 H 24 171/89 H 97 11/11/16 14:50 96 H 25 H 99 11/11/16 14:40 95 H 25 H 100 11/11/16 14:30 95 H 27 H 99 11/11/16 14:20 100 H 99 11/11/16 14:10 51 L 28 H 99 11/11/16 14:00 93 H 25 H 99 11/11/16 13:53 94 H 24 150/87 97 11/11/16 13:50 97 H 25 H 99 Intake and Output (Last 8hrs): Intake & Output 11/11/16 11/11/16 11/11/16 06:59 14:59 22:59 Intake Total 621.6 826.8 133.5 Output Total 450 1050 350 Balance 171.6 -223.2 -216.5 Intake: IV 50 50 25 Intake, IV Amount 571.6 776.8 108.5 Right Antecubital 0 200 Right Forearm 500 499 100 Right Forearm 2 71.6 77.8 8.5 Output: Urine 450 1050 350 Condom 450 Urine, Voided 1050 350 Other: # Voids Urine, Voided 1 1 # Bowel Movements 1 1 - Physical Exam Head: Positive for: Atraumatic, Normocephalic Extroacular Muscles: Positive for: EOMI Mouth: Positive for: Dry, Other (intubated) Respiratory/Chest: Positive for: Other (hypoxic). Negative for: Good Air Exchange, Rales, Rhonchi, Tachypneic Cardiovascular: Positive for: Regular Rate and Rhythm, Normal S1, S2. Negative for: Tachycardic, Bradycardic Abdomen: Positive for: Distention, Normal Bowel Sounds. Negative for: Tenderness Upper Extremity: Positive for: Normal Inspection. Negative for: Edema Lower Extremity: Positive for: Normal Inspection, NORMAL PULSES. Negative for: Edema Neurological: Positive for: Other (tremors) Skin: Positive for: Warm, Dry, Normal Color. Negative for: Diaphoretic Psychiatric: Positive for: Alert. Negative for: Oriented x 3, Normal Affect, Normal Mood - Medications Active Medications: Active Medications Generic Name Dose Route Start Last Admin Trade Name Freq PRN Reason Stop Dose Admin Acetaminophen 650 mg 11/09/16 16:28 11/09/16 16:53 Tylenol 650 Mg Supp IN 650 mg Q4 PRN Administration Fever >100.4 F Albuterol/Ipratropium 3 ml 11/11/16 14:00 Duoneb 3 Mg/0.5 Mg (3 Ml) Ud INH RQ6 JO Chlordiazepoxide 5 mg 11/11/16 10:00 11/11/16 17:11 Librium PO 11/13/16 10:01 5 mg BID JO Administration Famotidine 20 mg 11/09/16 10:00 11/11/16 10:44 Pepcid IVP 20 mg DAILY JO Administration Folic Acid 1 mg 11/06/16 15:00 11/11/16 10:35 Folic Acid PO 1 mg DAILY JO Administration Heparin Sodium (Porcine) 5,000 units 11/06/16 22:00 11/11/16 14:56 Heparin SC 5,000 units Q8 JO Administration Piperacillin Sod/Tazobactam 100 mls @ 200 mls/hr 11/08/16 10:00 11/11/16 12: 15 Sod 3.375 gm/ Sodium Chloride IVPB 200 mls/hr Q8H JO Administration Labetalol HCl 100 mg 11/11/16 10:00 11/11/16 17:11 Trandate PO 100 mg BID JO Administration Lorazepam 2 mg 11/08/16 09:17 11/10/16 15:45 Ativan IVP 2 mg Q4H PRN Administration Agitation Multivitamins 1 tab 11/06/16 15:00 11/11/16 10:35 Hexavitamin PO 1 tab DAILY JO Administration Thiamine HCl 100 mg 11/07/16 10:00 11/11/16 10:44 Vitamin B1 Inj IV 100 mg DAILY JO Administration - Patient Studies Lab Studies: Microbiology Studies 11/08/16 12:26 Blood Culture - Preliminary Blood-Venous NO GROWTH AFTER 3 DAYS 11/08/16 11:50 Blood Culture - Preliminary Blood-Venous NO GROWTH AFTER 3 DAYS 11/10/16 Unknown Gram Stain - Final Trachasp Sputum Culture - Preliminary No growth. Lab Studies 11/11/16 11/11/16 11/11/16 Range/Units 06:20 06:20 05:00 WBC 9.7 (4.8-10.8) K/uL RBC 3.91 L (4.40-5.90) Mil/uL Hgb 10.8 L (12.0-18.0) g/dL Hct 33.2 L (35.0-51.0) % MCV 84.9 (80.0-94.0) fL MCH 27.5 (27.0-31.0) pg MCHC 32.4 L (33.0-37.0) g/dL RDW 15.5 H (11.5-14.5) % Plt Count 225 (130-400) K/uL MPV 9.2 (7.2-11.7) fL Neut % (Auto) 74.7 (50.0-75.0) % Lymph % (Auto) 12.6 L (20.0-40.0) % [place] % (Auto) 7.9 (0.0-10.0) % Eos % (Auto) 4.0 (0.0-4.0) % Baso % (Auto) 0.8 (0.0-2.0) % Neut # 7.2 H (1.8-7.0) K/uL Lymph # 1.2 (1.0-4.3) K/uL [place] # 0.8 (0.0-0.8) K/uL Eos # 0.4 (0.0-0.7) K/uL Baso # 0.1 (0.0-0.2) K/uL Puncture Site Rr pCO2 34 L (35-45) mm/Hg pO2 101 H (80-100) mm/Hg HCO3 25.1 (21-28) mmol/L ABG pH 7.45 (7.35-7.45) ABG Total CO2 24.6 (22-28) mmol/L ABG O2 Saturation 98.7 H (95-98) % ABG Base Excess 0.3 (-2.0-3.0) mmol/L ABG Hemoglobin 17.2 (11.7-17.4) g/dL ABG Carboxyhemoglobin 1.4 (0.5-1.5) % POC ABG HHb (Measured) 1.3 (0.0-5.0) % ABG Methemoglobin 1.1 (0.0-3.0) % Law Test Pos Hgb O2 Saturation 96.1 (95.0-98.0) % Liter Flow 5.0 Sodium 140 (132-148) mmol/L Potassium 3.7 (3.6-5.2) mmol/L Chloride 102 (98-107) mmol/L Carbon Dioxide 23 (22-30) mmol/L Anion Gap 19 (10-20) BUN 7 L (9-20) mg/dL Creatinine 0.5 L (0.8-1.5) MG/DL Est GFR ( Amer) > 60 Est GFR (Non-Af Amer) > 60 Random Glucose 88 (75-110) mg/dL Calcium 8.5 L (8.6-10.4) mg/dl Phosphorus 3.6 (2.5-4.5) mg/dL Magnesium 1.8 (1.6-2.3) mg/dL Total Bilirubin 1.2 (0.2-1.3) mg/dL AST 55 (17-59) U/L ALT 63 (21-72) U/L Alkaline Phosphatase 88 (38-126) U/L Total Protein 6.7 (6.3-8.3) g/dL Albumin 3.1 L (3.5-5.0) g/dL Globulin 3.5 (2.2-3.9) gm/dL Albumin/Globulin Ratio 0.9 L (1.0-2.1) Laboratory Results - last 24 hr 11/11/16 11/11/16 11/11/16 05:00 06:20 06:20 WBC 9.7 RBC 3.91 L Hgb 10.8 L Hct 33.2 L MCV 84.9 MCH 27.5 MCHC 32.4 L RDW 15.5 H Plt Count 225 MPV 9.2 Neut % (Auto) 74.7 Lymph % (Auto) 12.6 L [place] % (Auto) 7.9 Eos % (Auto) 4.0 Baso % (Auto) 0.8 Neut # 7.2 H Lymph # 1.2 [place] # 0.8 Eos # 0.4 Baso # 0.1 Puncture Site Rr pCO2 34 L pO2 101 H HCO3 25.1 ABG pH 7.45 ABG Total CO2 24.6 ABG O2 Saturation 98.7 H ABG Base Excess 0.3 ABG Hemoglobin 17.2 ABG Carboxyhemoglobin 1.4 POC ABG HHb (Measured) 1.3 ABG Methemoglobin 1.1 Law Test Pos Hgb O2 Saturation 96.1 Liter Flow 5.0 Sodium 140 Potassium 3.7 Chloride 102 Carbon Dioxide 23 Anion Gap 19 BUN 7 L Creatinine 0.5 L Est GFR ( Amer) > 60 Est GFR (Non-Af Amer) > 60 Random Glucose 88 Calcium 8.5 L Phosphorus 3.6 Magnesium 1.8 Total Bilirubin 1.2 AST 55 ALT 63 Alkaline Phosphatase 88 Total Protein 6.7 Albumin 3.1 L Globulin 3.5 Albumin/Globulin Ratio 0.9 L Critical Care Progress Note - Nutrition Nutrition: Nutrition Category Date Time Status Regular Diet [DIET] Diets 11/11/16 Breakfast Ordered
[2016-11-11] MEDS: Albuterol-Ipratrop 3 mg / 0.5 (3 ml) UD INH SCH (19:56)
[2016-11-12] MEDS: Albuterol-Ipratrop 3 mg / 0.5 (3 ml) UD INH SCH ×5 (01:22→20:13)
[2016-11-12] MEDS: Piperacillin/Tazobact 3.375 GM in Sodium Chloride 100 ML IVPB SCH ×2 (02:17→09:25)
[2016-11-12 06:33] LABS: BASO % 0.4 % (0.0-2.0); EOS # 0.5 K/uL (0.0-0.7); EOS % 5.2 % (0.0-4.0); LYMPH % 10.8 % (20.0-40.0); MEAN CELL VOLUME 82.9 fL (80.0-94.0); MEAN CORPUSCULAR HEMOGLOBIN 27.8 pg (27.0-31.0); MEAN CORPUSCULAR HGB CONC 33.5 g/dL (33.0-37.0); MONO % 10.7 % (0.0-10.0); RED CELL DISTRIBUTION WIDTH 15.5 % (11.5-14.5); WHITE BLOOD COUNT 9.1 K/uL (4.8-10.8)
[2016-11-12 06:55] LABS: CHLORIDE 96 mmol/L (98-107); SODIUM 136 mmol/L (132-148)
[2016-11-12 06:56] LABS: POTASSIUM 3.5 mmol/L (3.6-5.2)
[2016-11-12 06:57] LABS: GFR AFRICAN-AMERICAN > 60
[2016-11-12 06:58] LABS: ALB/GLOB RATIO 0.9 (1.0-2.1); ALKALINE PHOSPHATASE 92 U/L (38-126); ALT/SGPT 60 U/L (21-72); AST/SGOT 60 U/L (17-59); BILIRUBIN,TOTAL 1.1 mg/dL (0.2-1.3); BLOOD UREA NITROGEN 7 mg/dL (9-20); CALCIUM 8.7 mg/dl (8.6-10.4); GLUCOSE,RANDOM 99 mg/dL (75-110); PHOSPHOROUS 4.6 mg/dL (2.5-4.5); TOTAL PROTEIN 6.9 g/dL (6.3-8.3)
[2016-11-12 07:17] LABS: CARBON DIOXIDE 27 mmol/L (22-30)
[2016-11-12] MEDS ORDERED: Potassium Chloride 20 mEq/15 ml LIQ UD PO ONE (08:00)
[2016-11-12] MEDS: Multiple Vitamins Tab PO SCH (09:26)
[2016-11-12] MEDS: Thiamine 100 mg/ml Inj IV SCH (09:26)
--- NOTE | 2016-11-12 11:05 | CP.PCM.PN ---
Subjective - Date & Time of Evaluation Date of Evaluation: 11/12/16 Time of Evaluation: 11:00 - Subjective Subjective: Patient was seen and examined by me. Family members present at bedside. Patient on exam was not in any acute distress. The patient is pending being moved out of the ICU. He did have some very fine tremors on exam. On small doses of librium at this time. He was afebrile yesterday and also blood cultures have been negative for > 48hrs Objective - Vital Signs/Intake and Output Vital Signs (last 24 hours): Temp Pulse Resp BP Pulse Ox 98.1 F 89 22 162/93 H 97 11/12/16 08:00 11/12/16 10:53 11/12/16 10:53 11/12/16 10:53 11/12/16 10:53 Intake and Output: 11/12/16 11/12/16 06:59 18:59 Intake Total 140 300 Output Total 1950 350 Balance -1810 -50 - Medications Medications: Current Medications Acetaminophen (Tylenol 650 Mg Supp) 650 mg DE Q4 PRN PRN Reason: Fever >100.4 F Last Admin: 11/09/16 16:53 Dose: 650 mg Albuterol/Ipratropium (Duoneb 3 Mg/0.5 Mg (3 Ml) Ud) 3 ml INH RQ6 [facility] Last Admin: 11/12/16 07:56 Dose: Not Given Amlodipine Besylate (Norvasc) 5 mg PO DAILY [facility] Last Admin: 11/12/16 09:26 Dose: 5 mg Chlordiazepoxide (Librium) 5 mg PO BID [facility] Stop: 11/13/16 10:01 Last Admin: 11/12/16 10:10 Dose: 5 mg Famotidine (Pepcid) 20 mg PO DAILY [facility] Last Admin: 11/12/16 09:26 Dose: 20 mg Folic Acid (Folic Acid) 1 mg PO DAILY [facility] Last Admin: 11/12/16 09:26 Dose: 1 mg Heparin Sodium (Porcine) (Heparin) 5,000 units SC Q8 [facility] Last Admin: 11/12/16 06:46 Dose: 5,000 units Piperacillin Sod/Tazobactam (Sod 3.375 gm/ Sodium Chloride) 100 mls @ 200 mls/ hr IVPB Q8H [facility] Last Admin: 11/12/16 09:25 Dose: 200 mls/hr Labetalol HCl (Trandate) 100 mg PO TID [facility] Last Admin: 11/12/16 09:28 Dose: 100 mg Lorazepam (Ativan) 2 mg IVP Q4H PRN PRN Reason: Agitation Last Admin: 11/10/16 15:45 Dose: 2 mg Multivitamins (Hexavitamin) 1 tab PO DAILY [facility] Last Admin: 11/12/16 09:26 Dose: 1 tab Thiamine HCl (Vitamin B1 Inj) 100 mg IV DAILY [facility] Last Admin: 11/12/16 09:26 Dose: 100 mg - Labs Labs: 11/12/16 06:24 11/12/16 06:19 PT 13.3 SECONDS (9.7-12.2) H 11/06/16 15:19 INR 1.2 11/06/16 15:19 APTT 30 SECONDS (21-34) 11/06/16 15:19 - Constitutional Appears: Non-toxic, No Acute Distress, Cachectic, Chronically Ill - Head Exam Head Exam: NORMAL INSPECTION, NORMOCEPHALIC - Eye Exam Eye Exam: EOMI, Normal appearance - ENT Exam ENT Exam: Mucous Membranes Moist - Respiratory Exam Respiratory Exam: Clear to Ausculation Bilateral, NORMAL BREATHING PATTERN - Cardiovascular Exam Cardiovascular Exam: REGULAR RHYTHM - GI/Abdominal Exam GI & Abdominal Exam: Soft, Normal Bowel Sounds - Neurological Exam Neurological Exam: Alert, Awake, Oriented x3 Neuro motor strength exam: Left Upper Extremity: 5, Right Upper Extremity: 5, Left Lower Extremity: 5, Right Lower Extremity: 5 - Psychiatric Exam Psychiatric exam: Normal Affect, Normal Mood - Skin Skin Exam: Normal Color, Warm Assessment and Plan - Assessment and Plan (Free Text) Assessment: Assessment & Plan (1) Alcohol withdrawal/Delirium Tremors Assessment and Plan: 11/12: Doing well, still has small tremors. On small doses of libirum. Pending transfer out of ICU 11/11: Self extubated last night. Currently on Librium PO and propofol 11/10: Remains intubated with propofol and ativan PRN, hopefully can be weaned off ventilator if the withdrawl symptoms become more stable when off propofol. 11/09: Remains intubated at this time. AST and ALT are both down trending. 11/08: Patient required intubation yesterday after noon. Currently on propofol as well as ativan 11/07: Patient currently on Precedex ggt. Also reciving ativan IV. - Thiamine 100mg IV daily - Multivitamin PO daily - Folic Acid 1mg PO daily - Ativan 2mg IV Q6 poncho - Ativan 4mg IV Q2 PRN (hold if lethargic) - Keep NPO - Monitor vital signs - Monitor for signs of DTs (2) Fevers 11/12: Will DC abx today. We need to monitor CBC, temperature and cultures. 11/09: Yesterday Tmax 100.4 11/10: So far blood and urine cultures negative 24hrs. On Zosyn. continue to monitor. (2) Dyspnea on exertion Assessment and Plan: 11/09: Echo has now returned, EF 45%, borderline LVH reported 11/07: Now intubated 11/06: CXRAY pending, did not appear to be fluid overload or pulmonary congestion , pending 2D echo at this time (3) Prophylactic measure Assessment and Plan: DVT: Heparin 5,000 units SC, SCDs GI: Pepcid 20mg PO daily
--- NOTE | 2016-11-12 17:52 | CP.CCUPN ---
CCU Subjective - Physician Review Events Since Last Encounter (Free Text): 11/12/16 17:52 Patient is currently doing well. Less taking, portable. Not in any distress No withdrawal signs at this time. On examination: Vital signs stable. Mild elevation of the blood pressure noted. Chest good air entry regular heart sound nontender abdomen Assessment and recommendation: 61-year-old male with history of delirium tremens, respiratory failure, on ventilator extubated. Currently improving. On Librium, Ativan. Continue the current treatment, transferred to floor CCU Objective - Vital Signs / Intake & Output Vital Signs (Last 4 hours): Vital Signs Temp Pulse Resp Pulse Ox 11/12/16 16:00 99.6 F 97 H 16 99 11/12/16 15:00 95 H 17 100 11/12/16 14:25 93 H 21 100 Intake and Output (Last 8hrs): Intake & Output 11/12/16 11/12/16 11/12/16 06:59 14:59 22:59 Intake Total 60 670 300 Output Total 1500 750 100 Balance -1440 -80 200 Intake: Intake, IV Amount 100 Right Antecubital 100 Oral 60 570 300 Output: Urine 1500 750 100 Urine, Voided 1500 750 100 - Physical Exam Head: Positive for: Atraumatic, Normocephalic Extroacular Muscles: Positive for: EOMI Mouth: Positive for: Dry, Other (intubated) Respiratory/Chest: Positive for: Other (hypoxic). Negative for: Good Air Exchange, Rales, Rhonchi, Tachypneic Cardiovascular: Positive for: Regular Rate and Rhythm, Normal S1, S2. Negative for: Tachycardic, Bradycardic Abdomen: Positive for: Distention, Normal Bowel Sounds. Negative for: Tenderness Upper Extremity: Positive for: Normal Inspection. Negative for: Edema Lower Extremity: Positive for: Normal Inspection, NORMAL PULSES. Negative for: Edema Neurological: Positive for: Other (tremors) Skin: Positive for: Warm, Dry, Normal Color. Negative for: Diaphoretic Psychiatric: Positive for: Alert. Negative for: Oriented x 3, Normal Affect, Normal Mood - Medications Active Medications: Active Medications Generic Name Dose Route Start Last Admin Trade Name Freq PRN Reason Stop Dose Admin Acetaminophen 650 mg 11/09/16 16:28 11/09/16 16:53 Tylenol 650 Mg Supp DC 650 mg Q4 PRN Administration Fever >100.4 F Albuterol/Ipratropium 3 ml 11/11/16 14:00 11/12/16 14:28 Duoneb 3 Mg/0.5 Mg (3 Ml) Ud INH 3 ml RQ6 JO Administration Amlodipine Besylate 5 mg 11/12/16 10:00 11/12/16 09:26 Norvasc PO 5 mg DAILY JO Administration Chlordiazepoxide 5 mg 11/11/16 10:00 11/12/16 10:10 Librium PO 11/13/16 10:01 5 mg BID JO Administration Famotidine 20 mg 11/12/16 10:00 11/12/16 09:26 Pepcid PO 20 mg DAILY JO Administration Folic Acid 1 mg 11/06/16 15:00 11/12/16 09:26 Folic Acid PO 1 mg DAILY JO Administration Heparin Sodium (Porcine) 5,000 units 11/06/16 22:00 11/12/16 13:28 Heparin SC 5,000 units Q8 JO Administration Labetalol HCl 100 mg 11/12/16 10:00 11/12/16 13:29 Trandate PO 100 mg TID JO Administration Lorazepam 2 mg 11/08/16 09:17 11/10/16 15:45 Ativan IVP 2 mg Q4H PRN Administration Agitation Multivitamins 1 tab 11/06/16 15:00 11/12/16 09:26 Hexavitamin PO 1 tab DAILY JO Administration Thiamine HCl 100 mg 11/07/16 10:00 11/12/16 09:26 Vitamin B1 Inj IV 100 mg DAILY JO Administration - Patient Studies Lab Studies: Microbiology Studies 11/10/16 Unknown Gram Stain - Final Trachasp Sputum Culture - Final No growth. 11/08/16 12:26 Blood Culture - Preliminary Blood-Venous NO GROWTH AFTER 4 DAYS 11/08/16 11:50 Blood Culture - Preliminary Blood-Venous NO GROWTH AFTER 4 DAYS Lab Studies 11/12/16 11/12/16 Range/Units 06:24 06:19 WBC 9.1 (4.8-10.8) K/uL RBC 3.98 L (4.40-5.90) Mil/uL Hgb 11.1 L (12.0-18.0) g/dL Hct 33.0 L (35.0-51.0) % MCV 82.9 D (80.0-94.0) fL MCH 27.8 (27.0-31.0) pg MCHC 33.5 (33.0-37.0) g/dL RDW 15.5 H (11.5-14.5) % Plt Count 272 (130-400) K/uL MPV 9.0 (7.2-11.7) fL Neut % (Auto) 72.9 (50.0-75.0) % Lymph % (Auto) 10.8 L (20.0-40.0) % [place] % (Auto) 10.7 H (0.0-10.0) % Eos % (Auto) 5.2 H (0.0-4.0) % Baso % (Auto) 0.4 (0.0-2.0) % Neut # 6.6 (1.8-7.0) K/uL Lymph # 1.0 (1.0-4.3) K/uL [place] # 1.0 H (0.0-0.8) K/uL Eos # 0.5 (0.0-0.7) K/uL Baso # 0.0 (0.0-0.2) K/uL Sodium 136 (132-148) mmol/L Potassium 3.5 L (3.6-5.2) mmol/L Chloride 96 L (98-107) mmol/L Carbon Dioxide 27 (22-30) mmol/L Anion Gap 16 (10-20) BUN 7 L (9-20) mg/dL Creatinine 0.6 L (0.8-1.5) MG/DL Est GFR ( Amer) > 60 Est GFR (Non-Af Amer) > 60 Random Glucose 99 (75-110) mg/dL Calcium 8.7 (8.6-10.4) mg/dl Phosphorus 4.6 H (2.5-4.5) mg/dL Magnesium 2.0 (1.6-2.3) mg/dL Total Bilirubin 1.1 (0.2-1.3) mg/dL AST 60 H (17-59) U/L ALT 60 (21-72) U/L Alkaline Phosphatase 92 (38-126) U/L Total Protein 6.9 (6.3-8.3) g/dL Albumin 3.3 L (3.5-5.0) g/dL Globulin 3.6 (2.2-3.9) gm/dL Albumin/Globulin Ratio 0.9 L (1.0-2.1) Laboratory Results - last 24 hr 11/12/16 11/12/16 06:19 06:24 WBC 9.1 RBC 3.98 L Hgb 11.1 L Hct 33.0 L MCV 82.9 D MCH 27.8 MCHC 33.5 RDW 15.5 H Plt Count 272 MPV 9.0 Neut % (Auto) 72.9 Lymph % (Auto) 10.8 L [place] % (Auto) 10.7 H Eos % (Auto) 5.2 H Baso % (Auto) 0.4 Neut # 6.6 Lymph # 1.0 [place] # 1.0 H Eos # 0.5 Baso # 0.0 Sodium 136 Potassium 3.5 L Chloride 96 L Carbon Dioxide 27 Anion Gap 16 BUN 7 L Creatinine 0.6 L Est GFR ( Amer) > 60 Est GFR (Non-Af Amer) > 60 Random Glucose 99 Calcium 8.7 Phosphorus 4.6 H Magnesium 2.0 Total Bilirubin 1.1 AST 60 H ALT 60 Alkaline Phosphatase 92 Total Protein 6.9 Albumin 3.3 L Globulin 3.6 Albumin/Globulin Ratio 0.9 L Critical Care Progress Note - Nutrition Nutrition: Nutrition Category Date Time Status Regular Diet [DIET] Diets 11/11/16 Breakfast Active
[2016-11-13] MEDS: Albuterol-Ipratrop 3 mg / 0.5 (3 ml) UD INH SCH ×4 (01:13→19:39)
--- NOTE | 2016-11-13 08:45 | CP.PCM.PN ---
<Chely Lockwood - Last Filed: 11/13/16 14:44> Subjective - Date & Time of Evaluation Date of Evaluation: 11/13/16 Time of Evaluation: 08:00 - Subjective Subjective: Medicine Progress Note: Patient was seen and examined at bedside in the AM. No events overnight. Patient states he feels lightheaded sometimes but denies nausea or vomiting. Patent states his hands are still shaking but with much improvement. Patient states he has been able to walk from his bed to the bathroom with no difficulty breathing but he would like a walker to assist him with walking. Patient denies any other complaints. Patient states he has been drinking alcohol for more than 10 years. Patient states he drinks about 5 beers per day and was drinking 2 days prior to his hospitalization. Patient states there has been periods in his life where has stopped drinking. Patient states after he leaves during this admission he will quit drinking. Objective - Vital Signs/Intake and Output Vital Signs (last 24 hours): Temp Pulse Resp BP Pulse Ox 98 F 90 20 145/82 98 11/13/16 08:40 11/13/16 08:40 11/13/16 08:40 11/13/16 08:40 11/13/16 08:40 Intake and Output: 11/13/16 11/13/16 06:59 18:59 Intake Total 240 Output Total 1700 Balance -1460 - Medications Medications: Current Medications Acetaminophen (Tylenol 650 Mg Supp) 650 mg NV Q4 PRN PRN Reason: Fever >100.4 F Last Admin: 11/09/16 16:53 Dose: 650 mg Albuterol/Ipratropium (Duoneb 3 Mg/0.5 Mg (3 Ml) Ud) 3 ml INH RQ6 JO Last Admin: 11/13/16 07:11 Dose: 3 ml Amlodipine Besylate (Norvasc) 5 mg PO DAILY [facility] Last Admin: 11/12/16 09:26 Dose: 5 mg Chlordiazepoxide (Librium) 5 mg PO BID [facility] Stop: 11/13/16 10:01 Last Admin: 11/12/16 17:52 Dose: 5 mg Famotidine (Pepcid) 20 mg PO DAILY [facility] Last Admin: 11/12/16 09:26 Dose: 20 mg Folic Acid (Folic Acid) 1 mg PO DAILY [facility] Last Admin: 11/12/16 09:26 Dose: 1 mg Heparin Sodium (Porcine) (Heparin) 5,000 units SC Q8 [facility] Last Admin: 11/13/16 05:29 Dose: 5,000 units Labetalol HCl (Trandate) 100 mg PO TID [facility] Last Admin: 11/12/16 17:52 Dose: 100 mg Lorazepam (Ativan) 2 mg IVP Q4H PRN PRN Reason: Agitation Last Admin: 11/10/16 15:45 Dose: 2 mg Multivitamins (Hexavitamin) 1 tab PO DAILY [facility] Last Admin: 11/12/16 09:26 Dose: 1 tab Thiamine HCl (Vitamin B1 Inj) 100 mg IV DAILY [facility] Last Admin: 11/12/16 09:26 Dose: 100 mg - Labs Labs: 11/12/16 06:24 11/12/16 06:19 PT 13.3 SECONDS (9.7-12.2) H 11/06/16 15:19 INR 1.2 11/06/16 15:19 APTT 30 SECONDS (21-34) 11/06/16 15:19 - Constitutional Appears: Well, Non-toxic, No Acute Distress - Head Exam Head Exam: ATRAUMATIC, NORMAL INSPECTION, NORMOCEPHALIC - Eye Exam Eye Exam: EOMI, PERRL, Scleral icterus Pupil Exam: NORMAL ACCOMODATION - ENT Exam ENT Exam: Mucous Membranes Moist - Respiratory Exam Respiratory Exam: Clear to Ausculation Bilateral, NORMAL BREATHING PATTERN. absent: Rales, Rhonchi, Wheezes, Stridor - Cardiovascular Exam Cardiovascular Exam: REGULAR RHYTHM, RRR, +S1, +S2 - GI/Abdominal Exam GI & Abdominal Exam: Distended, Soft, Normal Bowel Sounds. absent: Tenderness - Extremities Exam Extremities Exam: Normal Inspection. absent: Pedal Edema, Tenderness Additional comments: Minor hand tremors bilaterally - Neurological Exam Neurological Exam: Alert, Awake, Oriented x3 - Psychiatric Exam Psychiatric exam: Normal Affect, Normal Mood - Skin Skin Exam: Normal Color, Warm Assessment and Plan - Assessment and Plan (Free Text) Plan: 1.) Alcohol Withdrawal - Thiamine 100mg IV daily - Multivitamin PO daily - Folic Acid 1mg PO daily - Ativan 2mg IV Q4 PRN - Monitor vital signs - Monitor for signs of DTs 2.) Hypertension - 5mg Amlodipine PO daily - 100mg Labetalol PO TID 3.) Dyspnea on exertion - improved - CXR 11/10: New elevation of right hemidiaphragm. Likely atelectasis right middle lobe. Otherwise no significant change. - ECHO 11/09: EF 45%, boderline LVH reported - Discontinued Nasal Canula 11/13 4.) Prophylactic measure DVT: Heparin 5,000 units SC, SCDs GI: Pepcid 20mg PO daily PT eval and treat Case Discussed with Dr. Satn Lockwood PGY-1 <Raheem Pierce - Last Filed: 11/14/16 09:11> Objective - Vital Signs/Intake and Output Vital Signs (last 24 hours): Temp Pulse Resp BP Pulse Ox 98.5 F 87 20 137/75 95 11/14/16 08:05 11/14/16 08:05 11/14/16 08:05 11/14/16 08:05 11/14/16 08:05 Intake and Output: 11/14/16 11/14/16 06:59 18:59 Output Total 500 Balance -500 - Medications Medications: Current Medications Acetaminophen (Tylenol 650 Mg Supp) 650 mg NV Q4 PRN PRN Reason: Fever >100.4 F Last Admin: 11/09/16 16:53 Dose: 650 mg Albuterol/Ipratropium (Duoneb 3 Mg/0.5 Mg (3 Ml) Ud) 3 ml INH RQ6 [facility] Last Admin: 11/14/16 08:31 Dose: 3 ml Amlodipine Besylate (Norvasc) 5 mg PO DAILY [facility] Last Admin: 11/13/16 10:07 Dose: 5 mg Chlordiazepoxide (Librium) 5 mg PO BID [facility] Last Admin: 11/13/16 21:43 Dose: 5 mg Famotidine (Pepcid) 20 mg PO DAILY [facility] Last Admin: 11/13/16 10:07 Dose: 20 mg Folic Acid (Folic Acid) 1 mg PO DAILY [facility] Last Admin: 11/13/16 10:07 Dose: 1 mg Heparin Sodium (Porcine) (Heparin) 5,000 units SC Q8 [facility] Last Admin: 11/14/16 05:22 Dose: 5,000 units Labetalol HCl (Trandate) 100 mg PO TID [facility] Last Admin: 11/13/16 18:10 Dose: 100 mg Lorazepam (Ativan) 2 mg IVP Q4H PRN PRN Reason: Agitation Last Admin: 11/10/16 15:45 Dose: 2 mg Multivitamins (Hexavitamin) 1 tab PO DAILY [facility] Last Admin: 11/13/16 10:06 Dose: 1 tab Nicotine (Nicoderm Cq) 1 patch TD DAILY [facility] Last Admin: 11/13/16 18:10 Dose: 1 patch Thiamine HCl (Vitamin B1 Inj) 100 mg IV DAILY [facility] Last Admin: 11/13/16 10:07 Dose: 100 mg - Labs Labs: 11/12/16 06:24 11/13/16 12:17 PT 13.3 SECONDS (9.7-12.2) H 11/06/16 15:19 INR 1.2 11/06/16 15:19 APTT 30 SECONDS (21-34) 11/06/16 15:19 Attending/Attestation - Attestation I have personally seen and examined this patient.: Yes I have fully participated in the care of the patient.: Yes I have reviewed all pertinent clinical information, including history, physical exam and plan: Yes Notes (Text): 11/14/16 09:10 Patient was seen and examined at bedside with the resident Patient is awake and alert but still has mild tremors. Patient is on Ativan as needed only. We will request physical therapy evaluation for the patient I discussed the plan of care with the resident likely with the assessment and plan documented.
[2016-11-13] MEDS: Multiple Vitamins Tab PO SCH (10:06)
[2016-11-13] MEDS: Thiamine 100 mg/ml Inj IV SCH (10:07)
[2016-11-13 12:43] LABS: CHLORIDE 96 mmol/L (98-107); POTASSIUM 3.8 mmol/L (3.6-5.2); SODIUM 135 mmol/L (132-148)
[2016-11-13 12:45] LABS: GFR AFRICAN-AMERICAN > 60
[2016-11-13 12:46] LABS: ALB/GLOB RATIO 0.9 (1.0-2.1); ALKALINE PHOSPHATASE 98 U/L (38-126); ALT/SGPT 88 U/L (21-72); AST/SGOT 115 U/L (17-59); BILIRUBIN,TOTAL 0.9 mg/dL (0.2-1.3); BLOOD UREA NITROGEN 11 mg/dL (9-20); CARBON DIOXIDE 25 mmol/L (22-30); GLUCOSE,RANDOM 99 mg/dL (75-110); TOTAL PROTEIN 7.4 g/dL (6.3-8.3)
[2016-11-13 12:47] LABS: CALCIUM 8.8 mg/dl (8.6-10.4)
[2016-11-14] MEDS: Albuterol-Ipratrop 3 mg / 0.5 (3 ml) UD INH SCH ×3 (02:15→13:41)
--- NOTE | 2016-11-14 07:53 | CP.PCM.PN ---
Objective - Vital Signs/Intake and Output Vital Signs (last 24 hours): Temp Pulse Resp BP Pulse Ox 98.3 F 98 H 20 123/60 95 11/13/16 23:38 11/13/16 23:38 11/13/16 23:38 11/13/16 23:38 11/13/16 23:38 Intake and Output: 11/14/16 11/14/16 06:59 18:59 Output Total 500 Balance -500 - Medications Medications: Current Medications Acetaminophen (Tylenol 650 Mg Supp) 650 mg [place] Q4 PRN PRN Reason: Fever >100.4 F Last Admin: 11/09/16 16:53 Dose: 650 mg Albuterol/Ipratropium (Duoneb 3 Mg/0.5 Mg (3 Ml) Ud) 3 ml INH RQ6 [facility] Last Admin: 11/14/16 02:15 Dose: Not Given Amlodipine Besylate (Norvasc) 5 mg PO DAILY [facility] Last Admin: 11/13/16 10:07 Dose: 5 mg Chlordiazepoxide (Librium) 5 mg PO BID [facility] Last Admin: 11/13/16 21:43 Dose: 5 mg Famotidine (Pepcid) 20 mg PO DAILY [facility] Last Admin: 11/13/16 10:07 Dose: 20 mg Folic Acid (Folic Acid) 1 mg PO DAILY [facility] Last Admin: 11/13/16 10:07 Dose: 1 mg Heparin Sodium (Porcine) (Heparin) 5,000 units SC Q8 [facility] Last Admin: 11/14/16 05:22 Dose: 5,000 units Labetalol HCl (Trandate) 100 mg PO TID [facility] Last Admin: 11/13/16 18:10 Dose: 100 mg Lorazepam (Ativan) 2 mg IVP Q4H PRN PRN Reason: Agitation Last Admin: 11/10/16 15:45 Dose: 2 mg Multivitamins (Hexavitamin) 1 tab PO DAILY [facility] Last Admin: 11/13/16 10:06 Dose: 1 tab Nicotine (Nicoderm Cq) 1 patch TD DAILY [facility] Last Admin: 11/13/16 18:10 Dose: 1 patch Thiamine HCl (Vitamin B1 Inj) 100 mg IV DAILY [facility] Last Admin: 11/13/16 10:07 Dose: 100 mg - Labs Labs: 11/12/16 06:24 08/28/17 12:17 PT 13.3 SECONDS (9.7-12.2) H 11/06/16 15:19 INR 1.2 11/06/16 15:19 APTT 30 SECONDS (21-34) 11/06/16 15:19
[2016-11-14] MEDS: Thiamine 100 mg/ml Inj IV SCH (09:32)
[2016-11-14] MEDS: Multiple Vitamins Tab PO SCH (09:33)
--- NOTE | 2016-11-14 11:37 | CP.PCM.DIS ---
<Chely Lockwood - Last Filed: 11/14/16 16:31> Provider - Provider Date of Admission: 11/06/16 14:00 Attending physician: Raheem Pierce MD Time Spent in preparation of Discharge (in minutes): 40 Hospital Course - Lab Results Lab Results: Micro Results 11/13/16 08:04 Nose MRSA Culture - Final MRSA NOT DETECTED 11/08/16 12:26 Blood-Venous Blood Culture - Final NO GROWTH AFTER 5 DAYS 11/08/16 12:26 Blood-Venous Gram Stain - Final TEST NOT PERFORMED 11/08/16 11:50 Blood-Venous Blood Culture - Final NO GROWTH AFTER 5 DAYS 11/08/16 11:50 Blood-Venous Gram Stain - Final TEST NOT PERFORMED 11/10/16 Unknown Trachasp Gram Stain - Final 11/10/16 Unknown Trachasp Sputum Culture - Final No growth. 11/08/16 09:20 Urine,Gillialnd Urine Culture - Final No Growth (<1,000 CFU/ML) 11/08/16 09:19 Trachasp Gram Stain - Final 11/08/16 09:19 Trachasp Sputum Culture - Final Yeast Species 11/06/16 Unknown Naris MRSA Culture (Admit) - Final MRSA NOT DETECTED Most Recent Lab Values WBC 9.1 K/uL (4.8-10.8) 11/12/16 06:24 RBC 3.98 Mil/uL (4.40-5.90) L 11/12/16 06:24 Hgb 11.1 g/dL (12.0-18.0) L 11/12/16 06:24 Hct 33.0 % (35.0-51.0) L 11/12/16 06:24 MCV 82.9 fL (80.0-94.0) D 11/12/16 06:24 MCH 27.8 pg (27.0-31.0) 11/12/16 06:24 MCHC 33.5 g/dL (33.0-37.0) 11/12/16 06:24 RDW 15.5 % (11.5-14.5) H 11/12/16 06:24 Plt Count 272 K/uL (130-400) 11/12/16 06:24 MPV 9.0 fL (7.2-11.7) 11/12/16 06:24 Neut % (Auto) 72.9 % (50.0-75.0) 11/12/16 06:24 Lymph % (Auto) 10.8 % (20.0-40.0) L 11/12/16 06:24 Powell % (Auto) 10.7 % (0.0-10.0) H 11/12/16 06:24 Eos % (Auto) 5.2 % (0.0-4.0) H 11/12/16 06:24 Baso % (Auto) 0.4 % (0.0-2.0) 11/12/16 06:24 Neut # 6.6 K/uL (1.8-7.0) 11/12/16 06:24 Lymph # 1.0 K/uL (1.0-4.3) 11/12/16 06:24 Powell # 1.0 K/uL (0.0-0.8) H 11/12/16 06:24 Eos # 0.5 K/uL (0.0-0.7) 11/12/16 06:24 Baso # 0.0 K/uL (0.0-0.2) 11/12/16 06:24 Neutrophils % (Manual) 82 % (50-75) H 11/06/16 11:56 Band Neutrophils % 1 % (0-2) 11/06/16 11:56 Lymphocytes % (Manual) 8 % (20-40) L 11/06/16 11:56 Monocytes % (Manual) 8 % (0-10) 11/06/16 11:56 Eosinophils % (Manual) 1 % (0-4) 11/06/16 11:56 Platelet Estimate Normal (NORMAL) 11/06/16 11:56 RBC Morphology Normal 11/06/16 11:56 PT 13.3 SECONDS (9.7-12.2) H 11/06/16 15:19 INR 1.2 11/06/16 15:19 APTT 30 SECONDS (21-34) 11/06/16 15:19 Puncture Site Rr 11/11/16 05:00 pCO2 34 mm/Hg (35-45) L 11/11/16 05:00 pO2 101 mm/Hg (80-100) H 11/11/16 05:00 HCO3 25.1 mmol/L (21-28) 11/11/16 05:00 ABG pH 7.45 (7.35-7.45) 11/11/16 05:00 ABG Total CO2 24.6 mmol/L (22-28) 11/11/16 05:00 ABG O2 Saturation 98.7 % (95-98) H 11/11/16 05:00 ABG Base Excess 0.3 mmol/L (-2.0-3.0) 11/11/16 05:00 ABG Hemoglobin 17.2 g/dL (11.7-17.4) 11/11/16 05:00 ABG Carboxyhemoglobin 1.4 % (0.5-1.5) 11/11/16 05:00 POC ABG HHb (Measured) 1.3 % (0.0-5.0) 11/11/16 05:00 ABG Methemoglobin 1.1 % (0.0-3.0) 11/11/16 05:00 Law Test Pos 11/11/16 05:00 A-a O2 Difference 210.0 mm/Hg 11/10/16 05:18 Respiratory Index 2.1 11/10/16 05:18 Hgb O2 Saturation 96.1 % (95.0-98.0) 11/11/16 05:00 Liter Flow 5.0 11/11/16 05:00 Vent Mode Prvc 11/10/16 05:18 Mechanical Rate 12 11/10/16 05:18 FiO2 50.0 % 11/10/16 05:18 Tidal Volume 450 11/10/16 05:18 PEEP 5 11/10/16 05:18 Sodium 135 mmol/L (132-148) 11/13/16 12:17 Potassium 3.8 mmol/L (3.6-5.2) 11/13/16 12:17 Chloride 96 mmol/L (98-107) L 11/13/16 12:17 Carbon Dioxide 25 mmol/L (22-30) 11/13/16 12:17 Anion Gap 18 (10-20) 11/13/16 12:17 BUN 11 mg/dL (9-20) 11/13/16 12:17 Creatinine 0.5 MG/DL (0.8-1.5) L 11/13/16 12:17 Est GFR ( Amer) > 60 11/13/16 12:17 Est GFR (Non-Af Amer) > 60 11/13/16 12:17 Random Glucose 99 mg/dL (75-110) 11/13/16 12:17 Calcium 8.8 mg/dl (8.6-10.4) 11/13/16 12:17 Phosphorus 4.6 mg/dL (2.5-4.5) H 11/12/16 06:19 Magnesium 2.0 mg/dL (1.6-2.3) 11/12/16 06:19 Total Bilirubin 0.9 mg/dL (0.2-1.3) 11/13/16 12:17 AST 115 U/L (17-59) H D 11/13/16 12:17 ALT 88 U/L (21-72) H D 11/13/16 12:17 Alkaline Phosphatase 98 U/L (38-126) 11/13/16 12:17 Total Protein 7.4 g/dL (6.3-8.3) 11/13/16 12:17 Albumin 3.6 g/dL (3.5-5.0) 11/13/16 12:17 Globulin 3.9 gm/dL (2.2-3.9) 11/13/16 12:17 Albumin/Globulin Ratio 0.9 (1.0-2.1) L 11/13/16 12:17 Lipase 192 U/L (23-300) 11/06/16 11:56 Urine Color Yellow (YELLOW) 11/08/16 12:14 Urine Clarity Clear (Clear) 11/08/16 12:14 Urine pH 6.0 (5.0-8.0) 11/08/16 12:[address] [place] 1.004 (1.003-1.030) 11/08/16 12:14 Urine Protein Negative mg/dL (NEGATIVE) 11/08/16 12:14 Urine Glucose (UA) Normal mg/dL (Normal) 11/08/16 12:14 Urine Ketones Negative mg/dL (NEGATIVE) 11/08/16 12:14 Urine Blood Negative (NEGATIVE) 11/08/16 12:14 Urine Nitrate Negative (NEGATIVE) 11/08/16 12:14 Urine Bilirubin Negative (NEGATIVE) 11/08/16 12:14 Urine Urobilinogen Normal mg/dL (0.2-1.0) 11/08/16 12:14 Ur Leukocyte Esterase Neg Valeriano/uL (Negative) 11/08/16 12:14 Urine WBC (Auto) 2 /hpf (0-5) 11/08/16 12:14 Urine RBC (Auto) 1 /hpf (0-3) 11/06/16 13:34 Ur Squamous Epith Cells < 1 /hpf (0-5) 11/08/16 12:14 Urine Bacteria Rare (<OCC) 11/08/16 12:14 Urine Opiates Screen Negative (NEGATIVE) 11/06/16 13:34 Urine Methadone Screen Negative (NEGATIVE) 11/06/16 13:34 Ur Barbiturates Screen Negative (NEGATIVE) 11/06/16 13:34 Ur Phencyclidine Scrn Negative (NEGATIVE) 11/06/16 13:34 Ur Amphetamines Screen Negative (NEGATIVE) 11/06/16 13:34 U Benzodiazepines Scrn Negative (NEGATIVE) 11/06/16 13:34 U Oth Cocaine Metabols Negative (NEGATIVE) 11/06/16 13:34 U Cannabinoids Screen Negative (NEGATIVE) 11/06/16 13:34 Alcohol, Quantitative 22 mg/dl (0-10) H 11/06/16 11:56 - Hospital Course Hospital Course: CC: tremors HPI: 61 year old male with no past medical history, presents to the ED with complaints of tremors that began this morning. He has a history of drinking 5-8 24oz. beers daily for many years. His last drink was yesterday afternoon. Patient reports feeling hand tremors, nausea, and sometimes short of breath. As per his , patient has difficulty walking more than 2-4 steps without becoming short of breath. Patient reports having fallen in the past, but is not sure if he has fallen recently. Patient is oriented and has no hallucinations. Patient denies having chest pain, abdominal pain, leg pain, vomiting, fevers, and dizziness. PMD: denies PMHx: denies SurgHx: denies FamHx: denies SocHx: 1/2ppd for "years", 5-8 24oz beers for "years; denies current drug use; denies IV drug use. Works at [employer] Allergies: NKDA Medications: denies Hospital Course: Patient was seen by the hospitalist Dr. Rapp in the ED. Chest X-ray in the ED shows no cardiopulmonary disease. Echo in ED showed borderline concentric left ventricular hypertrophy and a normal EF of 59%. Patient was admitted admitted to ICU for alcohol withdrawal. While in the ICU patient was intubated by Dr. Zhou. Chest x-ray performed post-intubation and showed no acute infiltrate or pleural effusions, ET tube and NG tube identified. While in the ICU patient was placed on Librium and Ativan for delirium tremens as needed. 11/08/16: CXr performed and showed limited crowding in medial left basilar bronchovascular markings, no definite infiltrate or pleural effusion. 82/17: CXR performed and showed limited medial right basilar atelectasis, linear atelectasis at left base medially, no pleural effusion or pneumothorax. 11/10/16: CXR performed and showed new elevation of right hemidiaphragm, likely atelectasis of right middle lobe, no significant change On 11/10/16 at 23:19 patient self extubated himself. Patient denied shortness of breath post extubation. Patient was transferred to the regular medical floor on 11/13/16. Patient denied any complaints. Patient was evaluated by physical therapy. Per their evaluation patient did not need rehabilitation. During this admission patient was found to have hypertension. Patient was started and sent home on: 5mg of Amlodipine once daily by mouth 100mg of Labetalol by mouth three times per day. Discussed the importance with patient of alcohol abstience. Patient to attend AA meetings (in [place]) in the [place] area. Patient was given a schedule of the AA meetings. Patient to follow up with [facility] for a primary care physician for blood pressure monitoring within 1-2 weeks: # [phone] Patient was stable for discharge per Dr. Pierce. Patient instructed to return to the ED if symptoms worsen or return. This is a brief summary of the patient's hospital course. Please review EMR for full report. Discharge Exam - Head Exam Head Exam: ATRAUMATIC, NORMAL INSPECTION, NORMOCEPHALIC - Eye Exam Eye Exam: EOMI, PERRL, Scleral icterus Pupil Exam: NORMAL ACCOMODATION - ENT Exam ENT Exam: Mucous Membranes Moist - Respiratory Exam Respiratory Exam: Clear to PA & Lateral, NORMAL BREATHING PATTERN. absent: Rales, Rhonchi, Wheezes, Respiratory Distress, Stridor - Cardiovascular Exam Cardiovascular Exam: REGULAR RHYTHM, RRR, +S1, +S2 - GI/Abdominal Exam GI & Abdominal Exam: Normal Bowel Sounds, Soft. absent: Tenderness - Extremities Exam Extremities exam: normal inspection Additional comments: Mild tremors on the right hand. The left hand had very minimal tremor. - Neurological Exam Neurological exam: Alert, Oriented x3 - Psychiatric Exam Psychiatric exam: Normal Affect, Normal Mood - Skin Skin Exam: Normal Color, Warm Discharge Plan - Discharge Medications Prescriptions: amLODIPine [Norvasc] 5 mg PO DAILY #30 tab Labetalol [Trandate] 100 mg PO TID #90 tab - Follow Up Plan Condition: GUARDED Disposition: HOME/ ROUTINE Instructions: Labetalol (By mouth), Amlodipine (By mouth), How to Stop Smoking (DC), Alcohol Withdrawal (DC), Dyspnea (GEN), Hypertension (DC) Additional Instructions: As per Dr. Pierce patient is stable for discharge to home. Patient was started on new blood pressure medications: 5mg of Amlodipine once daily by mouth 100mg of Labetalol by mouth three times per day. Discussed the importance with patient of alcohol abstience. Patient to attend AA meetings (in [place]) in the [place] area. Patient was given a schedule of the AA meetings. Patient to follow up with the [facility] for a primary care physician for blood pressure monitoring within 1-2 weeks: # [phone] Referrals: Clinic,Med Surg [Non-Staff] - <Raheem Pierce - Last Filed: 11/15/16 12:49> Provider - Provider Date of Admission: 11/06/16 14:00 Attending physician: Raheem Pierce MD Hospital Course - Lab Results Lab Results: Micro Results 11/13/16 08:04 Nose MRSA Culture - Final MRSA NOT DETECTED 11/08/16 12:26 Blood-Venous Blood Culture - Final NO GROWTH AFTER 5 DAYS 11/08/16 12:26 Blood-Venous Gram Stain - Final TEST NOT PERFORMED 11/08/16 11:50 Blood-Venous Blood Culture - Final NO GROWTH AFTER 5 DAYS 11/08/16 11:50 Blood-Venous Gram Stain - Final TEST NOT PERFORMED 11/10/16 Unknown Trachasp Gram Stain - Final 11/10/16 Unknown Trachasp Sputum Culture - Final No growth. 11/08/16 09:20 Urine,[place] Urine Culture - Final No Growth (<1,000 CFU/ML) 11/08/16 09:19 Trachasp Gram Stain - Final 11/08/16 09:19 Trachasp Sputum Culture - Final Yeast Species 11/06/16 Unknown Naris MRSA Culture (Admit) - Final MRSA NOT DETECTED Most Recent Lab Values WBC 10.0 K/uL (4.8-10.8) 11/14/16 11:20 RBC 4.28 Mil/uL (4.40-5.90) L 11/14/16 11:20 Hgb 12.0 g/dL (12.0-18.0) 11/14/16 11:20 Hct 36.1 % (35.0-51.0) 11/14/16 11:20 MCV 84.4 fL (80.0-94.0) 11/14/16 11:20 MCH 28.0 pg (27.0-31.0) 11/14/16 11:20 MCHC 33.2 g/dL (33.0-37.0) 11/14/16 11:20 RDW 15.7 % (11.5-14.5) H 11/14/16 11:20 Plt Count 380 K/uL (130-400) D 11/14/16 11:20 MPV 9.4 fL (7.2-11.7) 11/14/16 11:20 Neut % (Auto) 72.6 % (50.0-75.0) 11/14/16 11:20 Lymph % (Auto) 14.3 % (20.0-40.0) L 11/14/16 11:20 Powell % (Auto) 7.0 % (0.0-10.0) 11/14/16 11:20 Eos % (Auto) 5.5 % (0.0-4.0) H 11/14/16 11:20 Baso % (Auto) 0.6 % (0.0-2.0) 11/14/16 11:20 Neut # 7.3 K/uL (1.8-7.0) H 11/14/16 11:20 Lymph # 1.4 K/uL (1.0-4.3) 11/14/16 11:20 Powell # 0.7 K/uL (0.0-0.8) 11/14/16 11:20 Eos # 0.6 K/uL (0.0-0.7) 11/14/16 11:20 Baso # 0.1 K/uL (0.0-0.2) 11/14/16 11:20 Neutrophils % (Manual) 82 % (50-75) H 11/06/16 11:56 Band Neutrophils % 1 % (0-2) 11/06/16 11:56 Lymphocytes % (Manual) 8 % (20-40) L 11/06/16 11:56 Monocytes % (Manual) 8 % (0-10) 11/06/16 11:56 Eosinophils % (Manual) 1 % (0-4) 11/06/16 11:56 Platelet Estimate Normal (NORMAL) 11/06/16 11:56 RBC Morphology Normal 11/06/16 11:56 PT 13.3 SECONDS (9.7-12.2) H 11/06/16 15:19 INR 1.2 11/06/16 15:19 APTT 30 SECONDS (21-34) 11/06/16 15:19 Puncture Site Rr 11/11/16 05:00 pCO2 34 mm/Hg (35-45) L 11/11/16 05:00 pO2 101 mm/Hg (80-100) H 11/11/16 05:00 HCO3 25.1 mmol/L (21-28) 11/11/16 05:00 ABG pH 7.45 (7.35-7.45) 11/11/16 05:00 ABG Total CO2 24.6 mmol/L (22-28) 11/11/16 05:00 ABG O2 Saturation 98.7 % (95-98) H 11/11/16 05:00 ABG Base Excess 0.3 mmol/L (-2.0-3.0) 11/11/16 05:00 ABG Hemoglobin 17.2 g/dL (11.7-17.4) 11/11/16 05:00 ABG Carboxyhemoglobin 1.4 % (0.5-1.5) 11/11/16 05:00 POC ABG HHb (Measured) 1.3 % (0.0-5.0) 11/11/16 05:00 ABG Methemoglobin 1.1 % (0.0-3.0) 11/11/16 05:00 Law Test Pos 11/11/16 05:00 A-a O2 Difference 210.0 mm/Hg 11/10/16 05:18 Respiratory Index 2.1 11/10/16 05:18 Hgb O2 Saturation 96.1 % (95.0-98.0) 11/11/16 05:00 Liter Flow 5.0 11/11/16 05:00 Vent Mode Prvc 11/10/16 05:18 Mechanical Rate 12 11/10/16 05:18 FiO2 50.0 % 11/10/16 05:18 Tidal Volume 450 11/10/16 05:18 PEEP 5 11/10/16 05:18 Sodium 138 mmol/L (132-148) 11/14/16 11:20 Potassium 3.5 mmol/L (3.6-5.2) L 11/14/16 11:20 Chloride 95 mmol/L (98-107) L 11/14/16 11:20 Carbon Dioxide 29 mmol/L (22-30) 11/14/16 11:20 Anion Gap 17 (10-20) 11/14/16 11:20 BUN 10 mg/dL (9-20) 11/14/16 11:20 Creatinine 0.6 MG/DL (0.8-1.5) L 11/14/16 11:20 Est GFR ( Amer) > 60 11/14/16 11:20 Est GFR (Non-Af Amer) > 60 11/14/16 11:20 Random Glucose 113 mg/dL (75-110) H 11/14/16 11:20 Calcium 9.1 mg/dl (8.6-10.4) 11/14/16 11:20 Phosphorus 4.6 mg/dL (2.5-4.5) H 11/12/16 06:19 Magnesium 2.0 mg/dL (1.6-2.3) 11/12/16 06:19 Total Bilirubin 0.8 mg/dL (0.2-1.3) 11/14/16 11:20 AST 228 U/L (17-59) H D 11/14/16 11:20 ALT 179 U/L (21-72) H D 11/14/16 11:20 Alkaline Phosphatase 96 U/L (38-126) 11/14/16 11:20 Total Protein 7.5 g/dL (6.3-8.3) 11/14/16 11:20 Albumin 3.6 g/dL (3.5-5.0) 11/14/16 11:20 Globulin 3.9 gm/dL (2.2-3.9) 11/14/16 11:20 Albumin/Globulin Ratio 0.9 (1.0-2.1) L 11/14/16 11:20 Lipase 192 U/L (23-300) 11/06/16 11:56 Urine Color Yellow (YELLOW) 11/08/16 12:14 Urine Clarity Clear (Clear) 11/08/16 12:14 Urine pH 6.0 (5.0-8.0) 11/08/16 12:[address] [place] 1.004 (1.003-1.030) 11/08/16 12:14 Urine Protein Negative mg/dL (NEGATIVE) 11/08/16 12:14 Urine Glucose (UA) Normal mg/dL (Normal) 11/08/16 12:14 Urine Ketones Negative mg/dL (NEGATIVE) 11/08/16 12:14 Urine Blood Negative (NEGATIVE) 11/08/16 12:14 Urine Nitrate Negative (NEGATIVE) 11/08/16 12:14 Urine Bilirubin Negative (NEGATIVE) 11/08/16 12:14 Urine Urobilinogen Normal mg/dL (0.2-1.0) 11/08/16 12:14 Ur Leukocyte Esterase Neg Valeriano/uL (Negative) 11/08/16 12:14 Urine WBC (Auto) 2 /hpf (0-5) 11/08/16 12:14 Urine RBC (Auto) 1 /hpf (0-3) 11/06/16 13:34 Ur Squamous Epith Cells < 1 /hpf (0-5) 11/08/16 12:14 Urine Bacteria Rare (<OCC) 11/08/16 12:14 Urine Opiates Screen Negative (NEGATIVE) 11/06/16 13:34 Urine Methadone Screen Negative (NEGATIVE) 11/06/16 13:34 Ur Barbiturates Screen Negative (NEGATIVE) 11/06/16 13:34 Ur Phencyclidine Scrn Negative (NEGATIVE) 11/06/16 13:34 Ur Amphetamines Screen Negative (NEGATIVE) 11/06/16 13:34 U Benzodiazepines Scrn Negative (NEGATIVE) 11/06/16 13:34 U Oth Cocaine Metabols Negative (NEGATIVE) 11/06/16 13:34 U Cannabinoids Screen Negative (NEGATIVE) 11/06/16 13:34 Alcohol, Quantitative 22 mg/dl (0-10) H 11/06/16 11:56 Attending/Attestation - Attestation I have personally seen and examined this patient.: Yes I have fully participated in the care of the patient.: Yes I have reviewed all pertinent clinical information, including history, physical exam and plan: Yes Notes (Text): 11/15/16 12:49 Patient was seen and examined at bedside with the resident. Patient is completed alcohol withdrawal taper and he is clinically stable Patient evaluated by physical therapist and is clear for discharge to home I will discharge the patient to home. I discussed the discharge plan with the patient and he verbalized understanding I agree with the discharge note by the resident
[2016-11-14 11:42] LABS: BASO # 0.1 K/uL (0.0-0.2); BASO % 0.6 % (0.0-2.0); EOS # 0.6 K/uL (0.0-0.7); EOS % 5.5 % (0.0-4.0); HEMATOCRIT 36.1 % (35.0-51.0); LYMPH # 1.4 K/uL (1.0-4.3); LYMPH % 14.3 % (20.0-40.0); MEAN CELL VOLUME 84.4 fL (80.0-94.0); MEAN CORPUSCULAR HGB CONC 33.2 g/dL (33.0-37.0); MEAN PLATELET VOLUME 9.4 fL (7.2-11.7); MONO # 0.7 K/uL (0.0-0.8); RED CELL DISTRIBUTION WIDTH 15.7 % (11.5-14.5)
[2016-11-14 11:52] LABS: CHLORIDE 95 mmol/L (98-107)
[2016-11-14 11:53] LABS: POTASSIUM 3.5 mmol/L (3.6-5.2); SODIUM 138 mmol/L (132-148)
[2016-11-14 11:55] LABS: ALB/GLOB RATIO 0.9 (1.0-2.1); AST/SGOT 228 U/L (17-59); BILIRUBIN,TOTAL 0.8 mg/dL (0.2-1.3); BLOOD UREA NITROGEN 10 mg/dL (9-20); CARBON DIOXIDE 29 mmol/L (22-30); GFR AFRICAN-AMERICAN > 60; TOTAL PROTEIN 7.5 g/dL (6.3-8.3)
[2016-11-14 11:56] LABS: ALKALINE PHOSPHATASE 96 U/L (38-126); ALT/SGPT 179 U/L (21-72); CALCIUM 9.1 mg/dl (8.6-10.4); GLUCOSE,RANDOM 113 mg/dL (75-110)
[2016-11-14] MEDS: Potassium Chloride 20 mEq ER Tab PO SCH ×2 (13:06→13:32)
[2016-11-14] MEDS ORDERED: Pneumococcal 23-Valent Vaccine IM ONE (16:00)
[2016-11-14 16:58] VITALS: BP 157/88; PULSE 93; RESP 18; TEMP 97.9; O2SAT 98
== END 2016-11-14 17:29 | disposition home or self-care (01) | DRG 896 ==
LOC: C.ER 11:17 → C.9I 14:00 → C.5T 11-13 08:24
PROVIDERS: ADMIT Internal Medicine; ATTEND Internal Medicine
PROC: HZ2ZZZZ Detoxification Services for Substance Abuse Treatment (ICD-10-PCS; 2016-11-06)
PROC: 5A1945Z Respiratory Ventilation, 24-96 Consecutive Hours (ICD-10-PCS; principal; 2016-11-07)
PROC: 0BH18EZ Insertion of Endotracheal Airway into Trachea, Via Natural or Artificial Opening Endoscopic (ICD-10-PCS; 2016-11-07)
DX: F10.231 Alcohol dependence with withdrawal delirium (principal); J96.91 Respiratory failure, unspecified with hypoxia; I42.6 Alcoholic cardiomyopathy; J98.11 Atelectasis; I10 Essential (primary) hypertension; Y90.1 Blood alcohol level of 20-39 mg/100 ml; R45.1 Restlessness and agitation; R00.0 Tachycardia, unspecified; E87.6 Hypokalemia